=== PATIENT | female | born 1985 | race Hispanic/Latino ===

== ENCOUNTER 2017-06-14 22:32 | Emergency (ER) | payer OTHER ==
[2017-06-14 22:33] VITALS: BMI 41.3
[2017-06-14 22:51] VITALS: TEMP 98.2
[2017-06-15 00:39] LABS: BASO # 0.05 K/mm3 (0.0-2.0); BASO % 0.5 % (0.0-3.0); EOS # 0.4 (0.0-0.7); EOS % 4.4 % (1.5-5.0); GRAN # 6.65 (1.4-6.5); GRAN % 70.1 % (50.0-68.0); HEMATOCRIT 38.7 % (36.0-48.0); LYMPH # 1.6 (1.2-3.4); MEAN CELL VOLUME 85.6 fl (80.0-105.0); MEAN CORPUSCULAR HEMOGLOBIN 27.9 pg (25.0-35.0); MEAN CORPUSCULAR HGB CONC 32.6 g/dl (31.0-37.0); MEAN PLATELET VOLUME 9.2 fl (7.0-11.0); MONO # 0.8 (0.1-0.6); RED CELL DISTRIBUTION WIDTH 14.3 % (11.5-14.5); WHITE BLOOD COUNT 9.5 10^3/ul (4.5-11.0)
[2017-06-15 00:45] LABS: ALB/GLOB RATIO 1.3 (1.1-1.8); ALKALINE PHOSPHATASE 82 U/L (38-126); ALT/SGPT 53 U/L (7-56); AST/SGOT 41 U/L (14-36); BILIRUBIN,TOTAL 0.4 mg/dL (0.2-1.3); BLOOD UREA NITROGEN 14 mg/dL (7-21); CALCIUM 9.2 mg/dL (8.4-10.5); CARBON DIOXIDE 27 mmol/L (21-33); CHLORIDE 102 mmol/L (98-107); GFR AFRICAN-AMERICAN > 60; GLUCOSE,RANDOM 212 mg/dL (70-110); LIPASE 74 U/L (23-300); POTASSIUM 4.1 mmol/L (3.6-5.0); SODIUM 139 mmol/L (132-148); TOTAL PROTEIN 6.7 g/dL (5.8-8.3)
[2017-06-15 00:45] LABS: URINE BILIRUBIN NEGATIVE (NEGATIVE); URINE BLOOD LARGE (NEGATIVE); URINE GLUCOSE (UA) 100 mg/dL (NEGATIVE); URINE KETONE TRACE mg/dL (NEGATIVE); URINE LEUKOCYTE ESTERASE NEGATIVE Leu/uL (NEGATIVE); URINE PROTEIN NEGATIVE mg/dL (<30 mg/dL); URINE UROBILINOGEN 0.2 E.U./dL (<1 E.U./dL)
[2017-06-15] MEDS ORDERED: Morphine 4 mg/ml ISec IVP STA (00:53)
[2017-06-15 00:57] LABS: TROPONIN I < 0.01 ng/mL
[2017-06-15 01:01] LABS: URINE APPEARANCE SL CLOUDY (CLEAR); URINE COLOR YELLOW (YELLOW)
[2017-06-15] MEDS ORDERED: Sodium Chloride 0.9% 1,000 ML IV STA (01:04)
[2017-06-15 01:09] LABS: URINE BACTERIA RARE (NEG); URINE RBC 25 - 30 /hpf (0-2); URINE WBC 0 - 2 /hpf (0-6)
--- NOTE | 2017-06-15 01:23 | ED PDOC ---
Arrival/HPI - General Historian: Patient - General Chief Complaint: Back Pain Time Seen by Provider: 06/14/17 23:15 - History of Present Illness Narrative History of Present Illness (Text): 06/15/17 01:19 32yr old female with IDDM, HTN presents today with worsening SOB, Chest pain and sudden onset of left sided flank pain radiating to the abdomen and chest. pt states she is always feeling SOB, but it seems to be worsening. c/o anterior chest pain. pt c/o nausea no vomiting. pt states she was sitting at home tonight and suddenly developed left sided back pain that made her SOb worse. pt states the pain is intermittent and worse with certain positions. pt denies heavy lifting. denies trauma or injury. pt denies urinary symptoms. pt denies dizziness or weakness. (Maria Del Carmen Anguiano) Past Medical History - Provider Review Nursing Documentation Reviewed: Yes - Travel History Have you recently traveled outside [place] w/in the past 3 mons?: No - Infectious Disease Hx of Infectious Diseases: None - Tetanus Immunization Tetanus Immunization: Unknown - Reproductive Menopause: No - Cardiac Hx Cardiac Disorders: Yes Hx Hypertension: Yes - Pulmonary Hx Respiratory Disorders: Yes Hx Asthma: Yes Hx Chronic Obstructive Pulmonary Disease (COPD): Yes Other/Comment: chronic non-productive congh, sarcoidosis. + smoker - Neurological Hx Neurological Disorder: Yes Hx Migraine: Yes - HEENT Hx HEENT Disorder: No - Renal Hx Renal Disorder: No - Endocrine/Metabolic Hx Endocrine Disorders: Yes Hx Diabetes Mellitus Type 2: Yes - Hematological/Oncological Hx Blood Transfusions: No Hx Blood Transfusion Reaction: No - Integumentary Hx Dermatological Disorder: No - Musculoskeletal/Rheumatological Hx Musculoskeletal Disorders: No Hx Falls: No - Gastrointestinal Hx Gastrointestinal Disorders: No Hx Pancreatitis: Yes - Genitourinary/Gynecological Hx Genitourinary Disorders: No - Psychiatric Hx Psychophysiologic Disorder: Yes Hx Anxiety: Yes Hx Depression: Yes Hx Emotional Abuse: No Hx Panic Disorder: Yes Hx Physical Abuse: No Hx Substance Use: No - Surgical History Hx Cholecystectomy: Yes - Anesthesia Hx Anesthesia: Yes Hx Anesthesia Reactions: Yes (BURNING SENSATION IN ARM) Hx Malignant Hyperthermia: No - Suicidal Assessment Feels Threatened In Home Enviroment: No Family/Social History - Physician Review Nursing Documentation Reviewed: Yes Family/Social History: Unknown Family HX Smoking Status: Former Smoker Hx Alcohol Use: Yes Hx Substance Use: No Substance used: CANNABIS Hx Substance Use Treatment: No Allergies/Home Meds Allergies/Adverse Reactions: Allergies lisinopril Allergy (Verified 06/16/17 13:51) RASH hydromorphone Adverse Reaction (Verified 07/02/16 12:23) NAUSEA Home Medications: Home Meds Medication Instructions Recorded Confirmed Albuterol Sulfate [Albuterol 3 ml IH PRN PRN 12/09/14 06/14/17 Sulfate 3 ml] metFORMIN [glucOPHAGE] 1,000 mg PO BID 07/02/16 06/14/17 ALPRAZolam [Xanax] 1 mg PO HS 06/14/17 06/14/17 Amitriptyline [Elavil] 25 mg PO DAILY 06/14/17 06/14/17 Amoxicillin 125 mg PO DAILY 06/14/17 06/14/17 Benzonatate 200 mg PO DAILY 06/14/17 06/14/17 Clonazepam [Klonopin] 1 mg PO DAILY 06/14/17 06/14/17 Clonazepam [Klonopin] 2 mg PO DAILY 06/14/17 06/14/17 Codeine Phosphate/Guaifenesin 10 ml PO PRN PRN 06/14/17 06/14/17 [Guaifen-Codeine 200-20 mg/10Ml] DULoxetine [Cymbalta] 120 mg PO DAILY 06/14/17 06/14/17 Dulaglutide [Trulicity] 0.75 mg SC DAILY 06/14/17 06/14/17 Fluconazole 150 mg PO DAILY 06/14/17 06/14/17 Insulin Glargine, Recombina 25 unit SC BID 06/14/17 06/14/17 [Lantus] Insulin Lispro [Humalog (Insulin 0 unit SQ DAILY 06/14/17 06/14/17 Lispro)] Lidocaine 5% [Lidoderm] 1 TP DAILY 06/14/17 Losartan/Hydrochlorothiazide 1 tab PO DAILY 06/14/17 06/14/17 [Losartan Potassium-Hydrochlorothiazide 12.5 M] Meloxicam [Mobic] 15 mg PO DAILY 06/14/17 06/14/17 Metoprolol Tartrate [Lopressor] 50 mg PO DAILY 06/14/17 06/14/17 Montelukast [Singulair] 10 mg PO DAILY 06/14/17 06/14/17 Pantoprazole [Protonix] 40 mg PO DAILY 06/14/17 06/14/17 Prednisone 10 mg PO DAILY 06/14/17 06/14/17 Sumatriptan Succinate [Imitrex] 50 mg PO DAILY 06/14/17 06/14/17 oxyCODONE [oxycodone Hydrochloride] 20 mg PO PRN PRN 06/14/17 06/14/17 Review of Systems - Review of Systems Constitutional: absent: Fatigue, Fevers Respiratory: SOB. absent: Cough Cardiovascular: Chest Pain, Palpitations Gastrointestinal: Abdominal Pain, Constipation, Nausea. absent: Diarrhea, Vomiting Genitourinary Female: absent: Dysuria, Frequency, Hematuria, Vaginal Bleeding, Vaginal Discharge Musculoskeletal: Back Pain Skin: absent: Rash, Pruritis Neurological: absent: Headache, Dizziness Psychiatric: Anxiety. absent: Depression, Suicidal Ideation Physical Exam Vital Signs Reviewed: Yes Temperature: Afebrile Blood Pressure: Hypertensive Pulse: Tachycardic Respiratory Rate: Normal Appearance: Positive for: Well-Appearing, Non-Toxic, Uncomfortable Pain Distress: Mild Mental Status: Positive for: Alert and Oriented X 3 Finger Stick Blood Glucose: 208 - Systems Exam Head: Present: Atraumatic Mouth: Present: Moist Mucous Membranes Neck: Present: Normal Range of Motion Respiratory/Chest: Present: Clear to Auscultation, Good Air Exchange. No: Respiratory Distress, Accessory Muscle Use, Tender to Palpation Cardiovascular: Present: Regular Rate and Rhythm, Normal S1, S2. No: Murmurs Abdomen: Present: Tenderness (+ LUQ and LLQ tenderness), Normal Bowel Sounds. No: Distention, Peritoneal Signs Back: Present: Normal Inspection, Other (+ left flank tenderness. ). No: CVA Tenderness, Midline Tenderness, Paraspinal Tenderness Upper Extremity: Present: Normal ROM Lower Extremity: Present: Normal ROM. No: CALF TENDERNESS Neurological: Present: GCS=15, Speech Normal Skin: Present: Warm, Dry, Normal Color. No: Rashes Psychiatric: Present: Alert, Oriented x 3 Vital Signs Temp Pulse Resp BP Pulse Ox 06/15/17 05:55 85 20 97 06/15/17 01:12 111 H 16 109/74 96 06/14/17 22:46 98.2 F 120 H 20 131/105 H 98 Medical Decision Making ED Course and Treatment: Case signed out to me, pending CT, reevaluation and final disposition. Initial CT negative, but after speaking with radiologist, there is concern for a 5 mm stone. Patient is refusing further observation in the emergency department and is requesting to be discharged home. Addendum created by Naye De Los Santos MD on 06/15/2017 5:37 AM Eastern Time ([place] & [place]) Although examination was ordered with intravenous contrast, on series 2, image 311 is a filling defect within the proximal ureter of increased attenuation measuring 5 mm, with mild left-sided hydronephrosis, extending to this filling defect. These findings taken together may represent a left-sided ureteral calculus. THIS ADDENDUM CONTAINS FINDINGS THAT MAY BE CRITICAL TO PATIENT CARE. The findings were discussed via telephone conference with Dr. Levine at 5:36 AM EDT on 06/15/2017. Initial Report created on 06/15/2017 3:16 AM Eastern Time ([place] & [place]) CT Angiography Chest Without and With Intravenous Contrast FINDINGS: Pulmonary arteries: No pulmonary embolism. Aorta: No thoracic aortic aneurysm. No dissection. Lungs: No mass. No consolidation. Diffuse groundglass opacification and interstitial thickening. Pleural spaces: No significant effusion. No pneumothorax. Heart: No cardiomegaly. No significant pericardial effusion. No evidence of right heart dysfunction. Bones: No acute fracture. Lymph nodes: No pathologically enlarged lymph nodes. IMPRESSION: No pulmonary embolism. Findings suggesting mild pulmonary vascular congestion, as detailed above. CT Angiography Abdomen and Pelvis With Intravenous Contrast FINDINGS: VASCULATURE: Aorta: No acute findings. No abdominal aortic aneurysm. No dissection. Celiac trunk and mesenteric arteries: No acute findings. No occlusion or significant stenosis. Renal arteries: No acute findings. No occlusion or significant stenosis. Iliac arteries: No acute findings. No occlusion or significant stenosis. ABDOMEN: Liver: No acute findings. Gallbladder and bile ducts: The gallbladder surgically absent. No significant intra- or extrahepatic biliary ductal dilation. Pancreas: Enhances homogeneously. No ductal dilation. No discrete mass. Spleen: No acute findings. Adrenals: No acute findings. Kidneys and ureters: No acute findings. No hydronephrosis or renal calculi. No discrete solid mass. PELVIS: Bladder: No acute findings. Reproductive: 2 cm focus of decreased attenuation within the right ovary, statistically a cyst. ABDOMEN and PELVIS: Stomach and bowel: No obstruction. No mucosal thickening. Peritoneum: No significant fluid collection. No free air. Lymph nodes: No pathologically enlarged lymph nodes. Vasculature: Unremarkable. Bones: No acute fracture. IMPRESSION: No acute findings in the arterial system of the abdomen and pelvis. Right ovarian (likely) cyst. Dictated and Authenticated by: Naye De Los Santos MD 06/15/2017 3:16 AM Eastern Time ([place]) (Greg Levine) 32yr old female with CP, SOB, left sided back pain and abdominal pain. tachycardic, hypertensive, uncomfortable. cbc; wnl cmp; wnl trop; wnl bnp; wnl cxr; no infiltrate or effusion Ua; + blood morphine given for pain NS iv bolus given ekg; sinus tachycardia at 116b/m no st elevations. normal intervals. CT angio dissection protocol ordered; 06/15/17 02:44 case signed out to dr levine pending ct, re-evaluation and disposition. (Maria Del Carmen Anguiano) - Lab Interpretations Lab Results: 06/15/17 00:15 06/15/17 00:15 Lab Results 06/15/17 04:39: Lactate Dehydrogenase 468, Total Creatine Kinase 50, Troponin I < 0.01 06/15/17 00:34: Urine Color Yellow, Urine Appearance Sl cloudy, Urine pH 6.0, Ur Specific [place] >= 1.030, Urine Protein Negative, Urine Glucose (UA) 100 H, Urine Ketones Trace H, Urine Blood Large H, Urine Nitrate Negative, Urine Bilirubin Negative, Urine Urobilinogen 0.2, Ur Leukocyte Esterase Negative, Urine RBC 25 - 30, Urine WBC 0 - 2, Ur Epithelial Cells 1 - 3, Urine Bacteria Rare 06/15/17 00:15: WBC 9.5 D, RBC 4.52, Hgb 12.6, Hct 38.7, MCV 85.6, MCH 27.9, MCHC 32.6, RDW 14.3, Plt Count 375, MPV 9.2, Gran % 70.1 H, Lymph % (Auto) 17.0 L, [place] % (Auto) 8.0 H, Eos % (Auto) 4.4, Baso % (Auto) 0.5, Gran # 6.65 H, Lymph # 1.6, [place] # 0.8 H, Eos # 0.4, Baso # 0.05 06/15/17 00:15: Sodium 139, Potassium 4.1, Chloride 102, Carbon Dioxide 27, Anion Gap 14, BUN 14, Creatinine 0.9, Est GFR ( Amer) > 60, Est GFR (Non- Af Amer) > 60, Random Glucose 212 H, Calcium 9.2, Total Bilirubin 0.4, AST 41 H , ALT 53, Alkaline Phosphatase 82, Lactate Dehydrogenase 522, Total Creatine Kinase 54, Troponin I < 0.01 D, NT-Pro-B Natriuret Pep 101, Total Protein 6.7, Albumin 3.8, Globulin 2.9, Albumin/Globulin Ratio 1.3, Lipase 74 06/15/17 00:14: POC Glucose (mg/dL) 208 H - RAD Interpretation Radiology Orders: 06/14/17 23:16 CHEST PORTABLE [RAD] Stat 06/14/17 23:18 ANGIOGRAPHY DISECTION PROTOCOL [CT] Stat - Medication Orders Current Medication Orders: Discontinued Medications Sodium Chloride (Sodium Chloride 0.9%) 1,000 mls @ 999 mls/hr IV .Q1H1M STA Stop: 06/15/17 02:04 Last Admin: 06/15/17 01:07 Dose: 999 mls/hr eMAR Start Stop Document 06/15/17 01:07 OCS (Rec: 06/15/17 01:07 [id number] Intravenous Solution Start Date 06/15/17 Start Time 01:07 Morphine Sulfate (Morphine) 4 mg IVP STAT STA Stop: 06/15/17 00:54 Last Admin: 06/15/17 01:12 Dose: 4 mg MAR Pain Assessment Document 06/15/17 01:12 OCS (Rec: 06/15/17 01:12 [id number] Pain Reassessment Is this a pain reassessment? Yes Sleep Is patient sleeping during reassessment? No Presence of Pain Presence of Pain Yes Pain Scale Used Pain Scale Used Numeric Location Left, Right or Bilateral Bilateral Upper or Lower Lower Pain Location Body Site Back Description Description Constant Intensity of Pain at present 10 IVP Administration Document 06/15/17 01:12 OCS (Rec: 06/15/17 01:12 [id number] Charges for Administration # of IVP Administrations 1 Ondansetron HCl (Zofran Inj) 4 mg IVP STAT STA Stop: 06/15/17 01:02 Last Admin: 06/15/17 01:12 Dose: 4 mg IVP Administration Document 06/15/17 01:12 OCS (Rec: 06/15/17 01:12 [facility] [id number]) Charges for Administration # of IVP Administrations 1 Disposition/Present on Arrival - Present on Arrival Any Indicators Present on Arrival: No History of DVT/PE: No History of Uncontrolled Diabetes: No Urinary Catheter: No History of Decub. Ulcer: No History Surgical Site Infection Following: None - Disposition Have Diagnosis and Disposition been Completed?: Yes Disposition Time: 05:55 Patient Plan: Discharge - Disposition Diagnosis: Back pain, Chest pain Disposition: HOME/ ROUTINE Condition: STABLE Discharge Instructions (ExitCare): Chest Pain (ED), Kidney Stones (ED), Acute Low Back Pain (DC), Dyspnea (ED) Additional Instructions: please see specialist. return to er with worsening symptoms or concerns. Prescriptions: Ibuprofen [Motrin Tab] 600 mg PO Q8 PRN #15 tab PRN Reason: Pain, Mild (1-3) Tamsulosin [Flomax] 0.4 mg PO DAILY #10 cap Referrals: [facility] [Outside] - Follow up with primary [facility] [place] [Outside] - Follow up with primary [facility] [Outside] - Follow up with primary Yamileth NUNEZ,Greg Bloom MD [Primary Care Provider] - Follow up with primary Lui Alvarenga MD [Staff Provider] - Follow up with primary Hal Balbuena MD [Staff Provider] - Follow up with primary Forms: [employer] [facility] (French), WORK NOTE
[2017-06-15 01:27] VITALS: BP 109/74
--- NOTE | 2017-06-15 03:17 | CT ---
EXAM: CT Angiography Chest Without and With Intravenous Contrast CLINICAL HISTORY: 32 years old, female; Pain; Abdominal pain; Generalized; Chest pain; Additional info: Abd pain/sob/chest pain R/O disection/pe TECHNIQUE: Axial computed tomographic angiography images of the chest without and with intravenous contrast using pulmonary embolism protocol. All CT scans at this facility use one or more dose reduction techniques, viz.: automated exposure control; ma/kV adjustment per patient size (including targeted exams where dose is matched to indication; i.e. head); or iterative reconstruction technique. MIP reconstructed images were created and reviewed. Coronal and sagittal reformatted images were created and reviewed. CONTRAST: 146 mL of omni 350 administered intravenously. COMPARISON: No relevant prior studies available. FINDINGS: Pulmonary arteries: No pulmonary embolism. Aorta: No thoracic aortic aneurysm. No dissection. Lungs: No mass. No consolidation. Diffuse groundglass opacification and interstitial thickening. Pleural spaces: No significant effusion. No pneumothorax. Heart: No cardiomegaly. No significant pericardial effusion. No evidence of right heart dysfunction. Bones: No acute fracture. Lymph nodes: No pathologically enlarged lymph nodes. IMPRESSION: No pulmonary embolism. Findings suggesting mild pulmonary vascular congestion, as detailed above. EXAM: CT Angiography Abdomen and Pelvis With Intravenous Contrast CLINICAL HISTORY: 32 years old, female; Pain; Abdominal pain; Generalized; Chest pain; Additional info: Abd pain/sob/chest pain R/O disection/pe TECHNIQUE: Axial computed tomographic angiography images of the abdomen and pelvis with intravenous contrast. All CT scans at this facility use one or more dose reduction techniques, viz.: automated exposure control; ma/kV adjustment per patient size (including targeted exams where dose is matched to indication; i.e. head); or iterative reconstruction technique. MIP reconstructed images were created and reviewed. Coronal and sagittal reformatted images were created and reviewed. CONTRAST: 146 mL of omni 350 administered intravenously. COMPARISON: None FINDINGS: VASCULATURE: Aorta: No acute findings. No abdominal aortic aneurysm. No dissection. Celiac trunk and mesenteric arteries: No acute findings. No occlusion or significant stenosis. Renal arteries: No acute findings. No occlusion or significant stenosis. Iliac arteries: No acute findings. No occlusion or significant stenosis. ABDOMEN: Liver: No acute findings. Gallbladder and bile ducts: The gallbladder surgically absent. No significant intra- or extrahepatic biliary ductal dilation. Pancreas: Enhances homogeneously. No ductal dilation. No discrete mass. Spleen: No acute findings. Adrenals: No acute findings. Kidneys and ureters: No acute findings. No hydronephrosis or renal calculi. No discrete solid mass. PELVIS: Bladder: No acute findings. Reproductive: 2 cm focus of decreased attenuation within the right ovary, statistically a cyst. ABDOMEN and PELVIS: Stomach and bowel: No obstruction. No mucosal thickening. Peritoneum: No significant fluid collection. No free air. Lymph nodes: No pathologically enlarged lymph nodes. Vasculature: Unremarkable. Bones: No acute fracture. IMPRESSION: No acute findings in the arterial system of the abdomen and pelvis. Right ovarian (likely) cyst.
[2017-06-15 05:11] LABS: TROPONIN I < 0.01 ng/mL
[2017-06-15 05:56] VITALS: PULSE 85; RESP 20; O2SAT 97
--- NOTE | 2017-06-15 08:43 | RAD ---
HISTORY: chest pain COMPARISON: 07/27/2016 FINDINGS: LUNGS: No active pulmonary disease. PLEURA: No significant pleural effusion identified, no pneumothorax apparent. CARDIOVASCULAR: Normal. OSSEOUS STRUCTURES: No significant abnormalities. VISUALIZED UPPER ABDOMEN: Normal. OTHER FINDINGS: None. IMPRESSION: No active disease.
--- NOTE | 2017-06-15 22:05 | CARD ---
APPROVED REPORT EKG Measurement Heart [id number] <Conclusion> Sinus tachycardia Cannot rule out Anterior infarct, age undetermined Abnormal ECG
== END 2017-06-15 05:55 | disposition home or self-care (01) ==
LOC: ED 22:32
DX: M54.9 Dorsalgia, unspecified (principal); R07.9 Chest pain, unspecified; E11.9 Type 2 diabetes mellitus without complications; I10 Essential (primary) hypertension; Z79.4 Long term (current) use of insulin; Z87.891 Personal history of nicotine dependence
CPT/HCPCS: 71010; 71275; 74175; 80053; 81001; 82550; 82948; 83615; 83690; 83880; 84484; 85025; 93005; 96374; 96375; 99283; J2270; J2405; J7040; Q9967

== ENCOUNTER 2017-06-16 13:21 | Emergency (ER) | payer OTHER ==
[2017-06-16 13:21] VITALS: BMI 41.3
[2017-06-16] MEDS ORDERED: Morphine 4 mg/ml ISec IVP STA (13:57)
[2017-06-16 14:27] LABS: BASO # 0.05 K/mm3 (0.0-2.0); BASO % 0.6 % (0.0-3.0); EOS # 0.5 (0.0-0.7); EOS % 5.7 % (1.5-5.0); GRAN # 5.28 (1.4-6.5); HEMATOCRIT 38.1 % (36.0-48.0); LYMPH # 1.7 (1.2-3.4); LYMPH % 20.7 % (22.0-35.0); MEAN CELL VOLUME 83.9 fl (80.0-105.0); MEAN CORPUSCULAR HGB CONC 33.3 g/dl (31.0-37.0); MEAN PLATELET VOLUME 9.3 fl (7.0-11.0); MONO # 0.7 (0.1-0.6); RED CELL DISTRIBUTION WIDTH 14.1 % (11.5-14.5); WHITE BLOOD COUNT 8.3 10^3/ul (4.5-11.0)
[2017-06-16 14:41] LABS: ALB/GLOB RATIO 1.2 (1.1-1.8); ALKALINE PHOSPHATASE 81 U/L (38-126); ALT/SGPT 46 U/L (7-56); AST/SGOT 62 U/L (14-36); BILIRUBIN,TOTAL 0.6 mg/dL (0.2-1.3); BLOOD UREA NITROGEN 13 mg/dL (7-21); CALCIUM 8.9 mg/dL (8.4-10.5); CARBON DIOXIDE 23 mmol/L (21-33); CHLORIDE 105 mmol/L (98-107); GFR AFRICAN-AMERICAN > 60; GLUCOSE,RANDOM 132 mg/dL (70-110); SODIUM 137 mmol/L (132-148); TOTAL PROTEIN 6.8 g/dL (5.8-8.3)
[2017-06-16 14:44] LABS: POTASSIUM 4.5 mmol/L (3.6-5.0)
--- NOTE | 2017-06-16 14:53 | ED PDOC ---
Arrival/HPI - General Chief Complaint: Abdominal Pain Time Seen by Provider: 06/16/17 13:28 Historian: Patient - History of Present Illness Narrative History of Present Illness (Text): 06/16/17 14:50 A 32 year old female, whose past medical history includes COPD, Diabetes Mellitus, hypertension, and anxiety, presents to the emergency department for lower left sided back pain, which began two days ago. The patient states she is in excruciating pain and it worsens with the slightest movement. The patient denies any trauma, fevers, or any other complaints at this time. Time/Duration: < week (x 2 days ) Symptom Onset: Gradual Activities at Onset: Light Context: Home Past Medical History - Provider Review Nursing Documentation Reviewed: Yes - Infectious Disease Hx of Infectious Diseases: None - Tetanus Immunization Tetanus Immunization: Unknown - Cardiac Hx Cardiac Disorders: Yes Hx Hypertension: Yes - Pulmonary Hx Respiratory Disorders: Yes Hx Asthma: Yes Hx Chronic Obstructive Pulmonary Disease (COPD): Yes Other/Comment: chronic non-productive congh, sarcoidosis. + smoker - Neurological Hx Neurological Disorder: Yes Hx Migraine: Yes - HEENT Hx HEENT Disorder: No - Renal Hx Renal Disorder: No - Endocrine/Metabolic Hx Endocrine Disorders: Yes Hx Diabetes Mellitus Type 2: Yes - Hematological/Oncological Hx Blood Transfusions: No Hx Blood Transfusion Reaction: No - Integumentary Hx Dermatological Disorder: No - Musculoskeletal/Rheumatological Hx Musculoskeletal Disorders: No Hx Falls: No - Gastrointestinal Hx Gastrointestinal Disorders: No Hx Pancreatitis: Yes - Genitourinary/Gynecological Hx Genitourinary Disorders: No - Psychiatric Hx Psychophysiologic Disorder: Yes Hx Anxiety: Yes Hx Depression: Yes Hx Emotional Abuse: No Hx Panic Disorder: Yes Hx Physical Abuse: No Hx Substance Use: No - Surgical History Hx Cholecystectomy: Yes - Anesthesia Hx Anesthesia: Yes Hx Anesthesia Reactions: Yes (BURNING SENSATION IN ARM) Hx Malignant Hyperthermia: No - Suicidal Assessment Feels Threatened In Home Enviroment: No Family/Social History - Physician Review Nursing Documentation Reviewed: Yes Family/Social History: Unknown Family HX Smoking Status: Former Smoker Hx Alcohol Use: Yes Hx Substance Use: No Substance used: CANNABIS Hx Substance Use Treatment: No Allergies/Home Meds Allergies/Adverse Reactions: Allergies lisinopril Allergy (Verified 06/16/17 13:51) RASH hydromorphone Adverse Reaction (Verified 07/02/16 12:23) NAUSEA Home Medications: Home Meds Medication Instructions Recorded Confirmed Albuterol Sulfate [Albuterol 3 ml IH PRN PRN 12/09/14 06/14/17 Sulfate 3 ml] metFORMIN [glucOPHAGE] 1,000 mg PO BID 07/02/16 06/14/17 ALPRAZolam [Xanax] 1 mg PO HS 06/14/17 06/14/17 Amitriptyline [Elavil] 25 mg PO DAILY 06/14/17 06/14/17 Amoxicillin 125 mg PO DAILY 06/14/17 06/14/17 Benzonatate 200 mg PO DAILY 06/14/17 06/14/17 Clonazepam [Klonopin] 1 mg PO DAILY 06/14/17 06/14/17 Clonazepam [Klonopin] 2 mg PO DAILY 06/14/17 06/14/17 Codeine Phosphate/Guaifenesin 10 ml PO PRN PRN 06/14/17 06/14/17 [Guaifen-Codeine 200-20 mg/10Ml] DULoxetine [Cymbalta] 120 mg PO DAILY 06/14/17 06/14/17 Dulaglutide [Trulicity] 0.75 mg SC DAILY 06/14/17 06/14/17 Fluconazole 150 mg PO DAILY 06/14/17 06/14/17 Insulin Glargine, Recombina 25 unit SC BID 06/14/17 06/14/17 [Lantus] Insulin Lispro [Humalog (Insulin 0 unit SQ DAILY 06/14/17 06/14/17 Lispro)] Lidocaine 5% [Lidoderm] 1 TP DAILY 06/14/17 Losartan/Hydrochlorothiazide 1 tab PO DAILY 06/14/17 06/14/17 [Losartan Potassium-Hydrochlorothiazide 12.5 M] Meloxicam [Mobic] 15 mg PO DAILY 06/14/17 06/14/17 Metoprolol Tartrate [Lopressor] 50 mg PO DAILY 06/14/17 06/14/17 Montelukast [Singulair] 10 mg PO DAILY 06/14/17 06/14/17 Pantoprazole [Protonix] 40 mg PO DAILY 06/14/17 06/14/17 Prednisone 10 mg PO DAILY 06/14/17 06/14/17 Sumatriptan Succinate [Imitrex] 50 mg PO DAILY 06/14/17 06/14/17 oxyCODONE [oxycodone Hydrochloride] 20 mg PO PRN PRN 06/14/17 06/14/17 Review of Systems - Physician Review All systems were reviewed & negative as marked: Yes - Review of Systems Constitutional: absent: Fevers Musculoskeletal: Back Pain Physical Exam Vital Signs Reviewed: Yes Vital Signs Temp Pulse Resp BP Pulse Ox 06/16/17 17:29 98.6 F 87 20 115/66 06/16/17 16:30 90 20 115/66 98 06/16/17 13:48 99.1 F 110 H 17 136/74 100 Temperature: Afebrile Blood Pressure: Normal Pulse: Tachycardic Respiratory Rate: Normal Appearance: Positive for: Well-Appearing, Non-Toxic, Comfortable Pain Distress: None Mental Status: Positive for: Alert and Oriented X 3 - Systems Exam Head: Present: Atraumatic, Normocephalic Pupils: Present: PERRL Extroacular Muscles: Present: EOMI Conjunctiva: Present: Normal Mouth: Present: Moist Mucous Membranes Neck: Present: Normal Range of Motion Respiratory/Chest: Present: Clear to Auscultation, Good Air Exchange. No: Respiratory Distress, Accessory Muscle Use Cardiovascular: Present: Regular Rate and Rhythm, Normal S1, S2. No: Murmurs Abdomen: Present: Normal Bowel Sounds. No: Tenderness, Distention, Peritoneal Signs Back: Present: Other (diffuse tenderness) Upper Extremity: Present: Normal Inspection. No: Cyanosis, Edema Lower Extremity: Present: Normal Inspection. No: Edema Neurological: Present: GCS=15, CN II-XII Intact, Speech Normal Skin: Present: Warm, Dry, Normal Color. No: Rashes Psychiatric: Present: Alert, Oriented x 3, Normal Insight, Normal Concentration Medical Decision Making ED Course and Treatment: 06/16/17 14:52 Impression: A 32 year old female with lower back pain. Differential Diagnosis included but are not limited to: Back pain r/o MSK vs Kidney Stone Plan: -- Klonopin, Cymbalta, Toradol, Morphine, Zofran -- test -- Urinalysis -- Reassess and disposition Progress Notes: Patient was discharged recently with back with possible kidney stone. I reviewed the CT again with Dr. Bernstein radiologist, who states there are no kidney stones. Patient responded very well to Morphine and Toradol IV. She then back nauseous with some burning epigastric discomfort that was treated with Pepcid and Zofran Patient's UA showed +blood +LE +WBC 5-10 and Mod David. Will treat with Cipro x 7 days and have her follow up with her PMD. Symptoms and exam are most consistent with muscular skeletal. She has good follow up care and her friend is taking her home. - Lab Interpretations Lab Results: 06/16/17 14:23 06/16/17 14:23 Lab Results 06/16/17 17:05: Urine Color Yellow, Urine Appearance Cloudy, Urine pH 6.0, Ur Specific [place] >= 1.030, Urine Protein 100 H, Urine Glucose (UA) Negative, Urine Ketones Negative, Urine Blood Large H, Urine Nitrate Negative, Urine Bilirubin Small H, Urine Urobilinogen 0.2, Ur Leukocyte Esterase Small H, Urine RBC 15 - 20, Urine WBC 5 - 10, Ur Epithelial Cells 10 - 12, Urine Bacteria Mod 06/16/17 14:23: Sodium 137, Potassium 4.5, Chloride 105, Carbon Dioxide 23, Anion Gap 14, BUN 13, Creatinine 0.8, Est GFR ( Amer) > 60, Est GFR (Non- Af Amer) > 60, Random Glucose 132 H, Calcium 8.9, Total Bilirubin 0.6, AST 62 H D, ALT 46, Alkaline Phosphatase 81, Total Protein 6.8, Albumin 3.8, Globulin 3.1 , Albumin/Globulin Ratio 1.2 06/16/17 14:23: WBC 8.3, RBC 4.54, Hgb 12.7, Hct 38.1, MCV 83.9, MCH 28.0, MCHC 33.3, RDW 14.1, Plt Count 377, MPV 9.3, Gran % 64.0, Lymph % (Auto) 20.7 L, Ransom % (Auto) 9.0 H, Eos % (Auto) 5.7 H, Baso % (Auto) 0.6, Gran # 5.28, Lymph # 1.7, Ransom # 0.7 H, Eos # 0.5, Baso # 0.05 I have reviewed the lab results: Yes - Medication Orders Current Medication Orders: Discontinued Medications Ciprofloxacin (Cipro) 500 mg PO ONCE STA PRN Reason: Protocol Stop: 06/16/17 18:03 Last Admin: 06/16/17 18:17 Dose: 500 mg Clonazepam (Klonopin) 1 mg PO STAT STA PRN Reason: Protocol Stop: 06/16/17 14:18 Last Admin: 06/16/17 14:55 Dose: 1 mg Duloxetine HCl (Cymbalta) 60 mg PO STAT STA Stop: 06/16/17 14:20 Last Admin: 06/16/17 14:55 Dose: 60 mg Famotidine (Pepcid) 20 mg PO STAT STA Stop: 06/16/17 18:24 Last Admin: 06/16/17 18:33 Dose: 20 mg Ketorolac Tromethamine (Toradol) 30 mg IVP STAT STA Stop: 06/16/17 13:59 Last Admin: 06/16/17 14:18 Dose: 30 mg MAR Pain Assessment Document 06/16/17 14:18 MB (Rec: 06/16/17 14:18 [id number] Pain Reassessment Is this a pain reassessment? No Sleep Is patient sleeping during reassessment? No Presence of Pain Presence of Pain Yes Pain Scale Used Pain Scale Used Numeric Location Left, Right or Bilateral Left Pain Location Body Site Abdomen Description Description Sharp Intensity of Pain at present 10 Acceptable Level of Pain 0 IVP Administration Document 06/16/17 14:18 MB (Rec: 06/16/17 14:18 [id number] Charges for Administration # of IVP Administrations 1 Morphine Sulfate (Morphine) 4 mg IVP STAT STA Stop: 06/16/17 13:58 Last Admin: 06/16/17 14:16 Dose: 4 mg MAR Pain Assessment Document 06/16/17 14:16 MB (Rec: 06/16/17 14:17 [id number] Pain Reassessment Is this a pain reassessment? No Sleep Is patient sleeping during reassessment? No Presence of Pain Presence of Pain Yes Pain Scale Used Pain Scale Used Numeric Location Left, Right or Bilateral Left Pain Location Body Site Abdomen Description Description Acute Intensity of Pain at present 10 Acceptable Level of Pain 0 Pain Behavior Moaning Crying Grasping Site Rubbing Site Facial Grimacing Aggravating Factors Changing Position Exercise/Activity Standing Sitting Walking Stair Climbing Alleviating Factors/Management Medication Techniques Alleviating Factors Medication IVP Administration Document 06/16/17 14:16 MB (Rec: 06/16/17 14:17 [id number]) Charges for Administration # of IVP Administrations 1 Re-Assess: SHADI Pain Assessment Document 06/16/17 15:16 SZA (Rec: 06/16/17 18:51 [facility] [id number]) Pain Reassessment Is this a pain reassessment? Yes Sleep Is patient sleeping during reassessment? Yes Pain Scale Used Pain Scale Used Numeric Description Description Intermittent Intensity of Pain at present 4 Ondansetron HCl (Zofran Inj) 4 mg IVP STAT STA Stop: 06/16/17 13:59 Last Admin: 06/16/17 14:17 Dose: 4 mg IVP Administration Document 06/16/17 14:17 MB (Rec: 06/16/17 14:17 [id number]) Charges for Administration # of IVP Administrations 1 Ondansetron HCl (Zofran Odt) 4 mg PO STAT STA Stop: 06/16/17 18:03 Last Admin: 06/16/17 18:17 Dose: 4 mg - Scribe Statement The provider has reviewed the documentation as recorded by the Mary Jane Kemp Provider Scribe Attestation: All medical record entries made by the Susanibkieran were at my direction and personally dictated by me. I have reviewed the chart and agree that the record accurately reflects my personal performance of the history, physical exam, medical decision making, and the department course for this patient. I have also personally directed, reviewed, and agree with the discharge instructions and disposition. Disposition/Present on Arrival - Present on Arrival Any Indicators Present on Arrival: No History of DVT/PE: No History of Uncontrolled Diabetes: No Urinary Catheter: No History of Decub. Ulcer: No History Surgical Site Infection Following: None - Disposition Have Diagnosis and Disposition been Completed?: Yes Diagnosis: Back pain, UTI (urinary tract infection) Disposition: HOME/ ROUTINE Disposition Time: 18:35 Patient Plan: Discharge Condition: IMPROVED Discharge Instructions (ExitCare): Acute Low Back Pain (ED) Additional Instructions: Ms. Garay, thank you for letting us take care of you today. Your provider was Dr. De La Torre. You were treated for Back Pain. The emergency medical care you received today was directed at your acute symptoms. If you were prescribed any medication, please fill it and take as directed. It may take several days for your symptoms to resolve. Return to the Emergency Department if your symptoms worsen, do not improve, or if you have any other problems. Please contact your doctor or call one of the physicians/clinics you have been referred to that are listed on the Patient Visit Information form that is included in your discharge packet. Bring any paperwork you were given at discharge with you along with any medications you are taking to your follow up visit. Our treatment cannot replace ongoing medical care by a primary care provider (PCP) outside of the emergency department. Thank you for allowing the [facility] team to be part of your care today. If you had an X-Ray or CT scan: A Radiologist will review the ED reading if any change in treatment is needed we will contact you. If you had a blood, urine, or wound culture: It will take several days for the results, if any change in treatment is needed we will contact you. If you had an STI test: It will take 48 hours for the results. Please call after 1 week if you have not heard back. Prescriptions: Ciprofloxacin [Cipro] 500 mg PO Q12 #14 tab Famotidine [Pepcid] 20 mg PO DAILY #30 tab Fluconazole [Diflucan] 150 mg PO ONCE #1 tab Ondansetron ODT [Zofran ODT] 4 mg PO Q6 #14 odt traMADol [Ultram] 50 mg PO Q6H PRN #20 tab PRN Reason: Pain, Moderate (4-7) Referrals: Yamileth NUNEZ,Greg Bloom MD [Primary Care Provider] - Follow up with primary Forms: [employer] (Gabonese), WORK NOTE
[2017-06-16 16:32] VITALS: BP 115/66; RESP 20; O2SAT 98
[2017-06-16 17:30] VITALS: PULSE 87; TEMP 98.6
[2017-06-16 17:40] LABS: URINE APPEARANCE CLOUDY (CLEAR); URINE BILIRUBIN SMALL (NEGATIVE); URINE BLOOD LARGE (NEGATIVE); URINE COLOR YELLOW (YELLOW); URINE GLUCOSE (UA) NEGATIVE (NEGATIVE); URINE KETONE NEGATIVE (NEGATIVE); URINE LEUKOCYTE ESTERASE SMALL Leu/uL (NEGATIVE); URINE PROTEIN 100 mg/dL (<30 mg/dL); URINE UROBILINOGEN 0.2 E.U./dL (<1 E.U./dL)
[2017-06-16 17:52] LABS: URINE RBC 15 - 20 /hpf (0-2)
[2017-06-16 17:53] LABS: URINE BACTERIA MOD (NEG)
== END 2017-06-16 18:53 | disposition home or self-care (01) ==
LOC: ED 13:21
DX: N39.0 Urinary tract infection, site not specified (principal); M54.5 Low back pain; I10 Essential (primary) hypertension; E11.9 Type 2 diabetes mellitus without complications; Z87.891 Personal history of nicotine dependence
CPT/HCPCS: 80053; 81001; 85025; 96374; 96375; 99285; J1885; J2270; J2405

== ENCOUNTER 2017-10-24 18:55 | Emergency (ER) | payer OTHER ==
[2017-10-24 18:58] VITALS: BMI 45.3
[2017-10-24] MEDS ORDERED: Albuterol-Ipratrop 3 mg / 0.5 (3 ml) UD IH STA (20:13)
[2017-10-24] MEDS ORDERED: Sodium Chloride 0.9% 1,000 ML IV STA (20:13)
[2017-10-24 21:15] LABS: HEMOGLOBIN 12.4 g/dL (12.0-16.0); MEAN CELL VOLUME 85.1 fl (80.0-105.0); MEAN CORPUSCULAR HEMOGLOBIN 27.2 pg (25.0-35.0); MEAN PLATELET VOLUME 9.2 fl (7.0-11.0); RBC 4.56 10^6/uL (3.5-6.1); RED CELL DISTRIBUTION WIDTH 15.1 % (11.5-14.5); WHITE BLOOD COUNT 10.8 10^3/ul (4.5-11.0)
--- NOTE | 2017-10-24 21:18 | ED PDOC ---
Arrival/HPI - General Chief Complaint: Shortness Of Breath Time Seen by Provider: 10/24/17 19:54 Historian: Patient - History of Present Illness Narrative History of Present Illness (Text): 10/24/17 21:17 A 32 year old female, whose past medical history includes sarcoidosis, poly ovarian cystic disease, hypertension, presents to the emergency department complaining of flu like symptoms, intermittent cough and occasional shortness of breath. Patient also complaining of abdominal cramps at times with diarrhea. Patient also with complaint of vaginal bleeding. Patient states she has a psychiatric history and suffers from depression, denies any depression at this time. Patient notes subjective fever, mild sore throat, nasal congestion, ear fullness but denies any chest pain or any other complaints at this time. Symptom Onset: Sudden Symptom Course: Unchanged Activities at Onset: Rest Context: Home Past Medical History - Provider Review Nursing Documentation Reviewed: Yes - Infectious Disease Hx of Infectious Diseases: None - Tetanus Immunization Tetanus Immunization: Unknown - Cardiac Hx Cardiac Disorders: Yes Hx Hypertension: Yes - Pulmonary Hx Respiratory Disorders: Yes Hx Asthma: Yes Hx Chronic Obstructive Pulmonary Disease (COPD): Yes Other/Comment: chronic non-productive congh, sarcoidosis. + smoker - Neurological Hx Neurological Disorder: Yes Hx Migraine: Yes - HEENT Hx HEENT Disorder: No - Renal Hx Renal Disorder: No - Endocrine/Metabolic Hx Endocrine Disorders: Yes Hx Diabetes Mellitus Type 2: Yes - Hematological/Oncological Hx Blood Transfusions: No Hx Blood Transfusion Reaction: No - Integumentary Hx Dermatological Disorder: No - Musculoskeletal/Rheumatological Hx Musculoskeletal Disorders: No Hx Falls: No - Gastrointestinal Hx Gastrointestinal Disorders: No Hx Pancreatitis: Yes - Genitourinary/Gynecological Hx Genitourinary Disorders: No - Psychiatric Hx Psychophysiologic Disorder: Yes Hx Anxiety: Yes Hx Depression: Yes Hx Emotional Abuse: No Hx Panic Disorder: Yes Hx Physical Abuse: No Hx Substance Use: No - Surgical History Hx Cholecystectomy: Yes Other/Comment: multiple R foot sx. back sx - Anesthesia Hx Anesthesia: Yes Hx Anesthesia Reactions: Yes (BURNING SENSATION IN ARM) Hx Malignant Hyperthermia: No - Suicidal Assessment Feels Threatened In Home Enviroment: No Family/Social History - Physician Review Nursing Documentation Reviewed: Yes Family/Social History: No Known Family HX Smoking Status: Former Smoker Hx Alcohol Use: Yes Hx Substance Use: No Substance used: CANNABIS Hx Substance Use Treatment: No Allergies/Home Meds Allergies/Adverse Reactions: Allergies lisinopril Allergy (Verified 06/16/17 13:51) RASH hydromorphone Adverse Reaction (Verified 07/02/16 12:23) NAUSEA Home Medications: Home Meds Medication Instructions Recorded Confirmed Albuterol Sulfate [Albuterol 3 ml IH PRN PRN 12/09/14 06/14/17 Sulfate 3 ml] metFORMIN [glucOPHAGE] 1,000 mg PO BID 07/02/16 06/14/17 ALPRAZolam [Xanax] 1 mg PO HS 06/14/17 06/14/17 Amitriptyline [Elavil] 25 mg PO DAILY 06/14/17 06/14/17 Amoxicillin 125 mg PO DAILY 06/14/17 06/14/17 Benzonatate 200 mg PO DAILY 06/14/17 06/14/17 Clonazepam [Klonopin] 1 mg PO DAILY 06/14/17 06/14/17 Clonazepam [Klonopin] 2 mg PO DAILY 06/14/17 06/14/17 Codeine Phosphate/Guaifenesin 10 ml PO PRN PRN 06/14/17 06/14/17 [Guaifen-Codeine 200-20 mg/10Ml] DULoxetine [Cymbalta] 120 mg PO DAILY 06/14/17 06/14/17 Dulaglutide [Trulicity] 0.75 mg SC DAILY 06/14/17 06/14/17 Fluconazole 150 mg PO DAILY 06/14/17 06/14/17 Insulin Glargine, Recombina 25 unit SC BID 06/14/17 06/14/17 [Lantus] Insulin Lispro [Humalog (Insulin 0 unit SQ DAILY 06/14/17 06/14/17 Lispro)] Lidocaine 5% [Lidoderm] 1 TP DAILY 06/14/17 Losartan/Hydrochlorothiazide 1 tab PO DAILY 06/14/17 06/14/17 [Losartan Potassium-Hydrochlorothiazide 12.5 M] Meloxicam [Mobic] 15 mg PO DAILY 06/14/17 06/14/17 Metoprolol Tartrate [Lopressor] 50 mg PO DAILY 06/14/17 06/14/17 Montelukast [Singulair] 10 mg PO DAILY 06/14/17 06/14/17 Pantoprazole [Protonix] 40 mg PO DAILY 06/14/17 06/14/17 Prednisone 10 mg PO DAILY 06/14/17 06/14/17 Sumatriptan Succinate [Imitrex] 50 mg PO DAILY 06/14/17 06/14/17 oxyCODONE [oxycodone Hydrochloride] 20 mg PO PRN PRN 06/14/17 06/14/17 Review of Systems - Physician Review All systems were reviewed & negative as marked: Yes - Review of Systems ENT: Sore Throat, Sinus Congestion, Other (ear fullness) Respiratory: SOB, Cough Cardiovascular: absent: Chest Pain Gastrointestinal: Diarrhea, Other (abdominal cramps) Genitourinary Female: Vaginal Bleeding Psychiatric: absent: Depression Physical Exam Vital Signs Reviewed: Yes Vital Signs Temp Pulse Resp BP Pulse Ox 10/25/17 01:18 98.3 F 69 19 140/65 95 10/24/17 21:02 18 10/24/17 19:05 97.4 F L 92 H 18 136/92 H 96 Temperature: Afebrile Blood Pressure: Hypertensive Pulse: Regular Respiratory Rate: Normal Appearance: Positive for: Well-Appearing, Non-Toxic, Comfortable Pain Distress: None Mental Status: Positive for: Alert and Oriented X 3 - Systems Exam Head: Present: Atraumatic, Normocephalic Pupils: Present: PERRL Extroacular Muscles: Present: EOMI Conjunctiva: Present: Normal Ears: Present: NORMAL TM Mouth: Present: Moist Mucous Membranes Pharnyx: Present: ERYTHEMA. No: EXUDATE, TONSILS ENLARGED Neck: Present: Normal Range of Motion Respiratory/Chest: Present: Clear to Auscultation, Good Air Exchange. No: Respiratory Distress, Accessory Muscle Use Cardiovascular: Present: Regular Rate and Rhythm, Normal S1, S2. No: Murmurs Abdomen: Present: Normal Bowel Sounds. No: Tenderness, Distention, Peritoneal Signs Back: Present: Normal Inspection Upper Extremity: Present: Normal Inspection. No: Cyanosis, Edema Lower Extremity: Present: Normal Inspection. No: Edema Neurological: Present: GCS=15, CN II-XII Intact, Speech Normal, Motor Func Grossly Intact, Normal Sensory Function Skin: Present: Warm, Dry, Normal Color. No: Rashes Psychiatric: Present: Alert, Oriented x 3, Normal Insight, Normal Concentration Medical Decision Making ED Course and Treatment: 10/24/17 21:15 Impression: A 32 year old female with flu like symptoms, cough, shortness of breath, abdominal cramps, diarrhea, vaginal bleeding, subjective fever, mild sore throat , nasal congestion and ear fullness. Plan: -- EKG -- labs -- Chest xray -- US transvaginal -- Urinalysis -- Duoneb, IV fluids -- Reassess and disposition Prior Visits: Notes and results from previous visits were reviewed. Patient was last seen in the emergency department on 06/16/17 for evaluation of left lower sided back pain. Progress Notes: EXAM:US Pelvis Complete, Transabdominal Dictated and Authenticated by: Cristian Young MD 10/24/2017 11:01 PM IMPRESSION: 1. No acute findings. 10/25/17 00:33 EKG shows NSR at 92 BPM with no acute changes. Interpreted by me . 10/25/17 01:17 CXR Impression: As read by me, no acute processes. - Lab Interpretations Lab Results: 10/24/17 20:55 10/24/17 20:55 Lab Results 10/24/17 23:40: Urine Color Yellow, Urine Appearance Sl cloudy, Urine pH 6.0, Ur Specific [place] 1.025, Urine Protein Negative, Urine Glucose (UA) >=1000, Urine Ketones Negative, Urine Blood Large H, Urine Nitrate Negative, Urine Bilirubin Negative, Urine Urobilinogen 0.2, Ur Leukocyte Esterase Trace H, Urine RBC 15 - 20, Urine WBC 2 - 5, Ur Epithelial Cells 1 - 3, Urine Bacteria Few, Urine HCG, Qual Negative 10/24/17 20:55: PT 10.9, INR 0.96, APTT 31.0 10/24/17 20:55: WBC 10.8 D, RBC 4.56, Hgb 12.4, Hct 38.8, MCV 85.1, MCH 27.2, MCHC 32.0, RDW 15.1 H, Plt Count 364, MPV 9.2 10/24/17 20:55: Sodium 138, Potassium 4.0, Chloride 98, Carbon Dioxide 27, Anion Gap 16, BUN 13, Creatinine 0.7, Est GFR ( Amer) > 60, Est GFR (Non- Af Amer) > 60, Random Glucose 261 H, Calcium 9.6, Total Bilirubin 0.4, AST 23, ALT 26, Alkaline Phosphatase 120, Total Protein 7.5, Albumin 4.0, Globulin 3.5, Albumin/Globulin Ratio 1.1, Lipase 132 10/24/17 20:55: Influenza Typ A,B (EIA) Negative for flu a/b I have reviewed the lab results: Yes - RAD Interpretation Radiology Orders: 10/24/17 20:11 CHEST ONE VIEW [RAD] Stat 10/24/17 21:09 TRANSVAGINAL [US] Stat - EKG Interpretation Interpreted by ED Physician: Yes Type: 12 lead EKG - Medication Orders Current Medication Orders: Discontinued Medications Albuterol/Ipratropium (Duoneb 3 Mg/0.5 Mg (3 Ml) Ud) 3 ml IH ONCE STA Stop: 10/24/17 20:14 Last Admin: 10/24/17 20:48 Dose: 3 ml Sodium Chloride (Sodium Chloride 0.9%) 1,000 mls @ 999 mls/hr IV .Q1H1M STA Stop: 10/24/17 21:13 Last Admin: 10/24/17 20:48 Dose: 999 mls/hr eMAR Start Stop Document 10/24/17 20:48 EQ (Rec: 10/24/17 20:49 EQ [id number]) Intravenous Solution Start Date 10/24/17 Start Time 20:49 - Scribe Statement The provider has reviewed the documentation as recorded by the Mary Jane Mayfiedl Provider Scribe Attestation: All medical record entries made by the Scribe were at my direction and personally dictated by me. I have reviewed the chart and agree that the record accurately reflects my personal performance of the history, physical exam, medical decision making, and the department course for this patient. I have also personally directed, reviewed, and agree with the discharge instructions and disposition. Disposition/Present on Arrival - Present on Arrival Any Indicators Present on Arrival: No History of DVT/PE: No History of Uncontrolled Diabetes: No Urinary Catheter: No History of Decub. Ulcer: No History Surgical Site Infection Following: None - Disposition Have Diagnosis and Disposition been Completed?: Yes Diagnosis: Pharyngitis, URI (upper respiratory infection), Dysfunctional uterine bleeding Disposition: HOME/ ROUTINE Disposition Time: 01:20 Patient Plan: Discharge Condition: GOOD Discharge Instructions (ExitCare): Sore Throat in Adults, Heavy Periods (DC), Absent or Irregular Periods Additional Instructions: Drink plenty of liquids/take meds as prescribed/follow up with your doctor/ psychology instructor this week Prescriptions: Amoxicillin [Amoxil 500 mg Cap] 500 mg PO TID #21 cap Referrals: Yamileth NUNEZ,Greg Bloom MD [Primary Care Provider] - Follow up with primary Forms: [employer] (Rwandan)
[2017-10-24 21:20] LABS: INR 0.96 (0.93-1.08); PROTHROMBIN TIME 10.9 SECONDS (9.4-12.5)
[2017-10-24 21:28] LABS: ALB/GLOB RATIO 1.1 (1.1-1.8); ALT/SGPT 26 U/L (7-56); AST/SGOT 23 U/L (14-36); BLOOD UREA NITROGEN 13 mg/dL (7-21); CALCIUM 9.6 mg/dL (8.4-10.5); GFR AFRICAN-AMERICAN > 60; GFR NON-AFRICAN AMERICAN > 60; LIPASE 132 U/L (23-300)
--- NOTE | 2017-10-24 23:02 | US ---
EXAM: US Pelvis Complete, Transabdominal CLINICAL HISTORY: 32 years old, female; Signs and symptoms; Menstruation abnormalities; Irregular menstruation; Additional info: Vaginal bleed TECHNIQUE: Real-time transabdominal pelvic ultrasound (complete) with image documentation. COMPARISON: No relevant prior studies available. FINDINGS: Uterus/cervix: Uterus measures 8.5 x 2.5 x 4.7 cm in size. No myometrial mass. Endometrium: 0.6 cm in thickness. Right ovary: 2.5 x 1.8 x 2.3 cm in size. No mass. Normal flow. Left ovary: 2.8 x 2.0 x 2.2 cm in size. No mass. Normal flow. Free fluid: No significant free fluid. Bladder: Unremarkable as visualized. IMPRESSION: 1.No acute findings. EXAM: US Pelvis, Transvaginal CLINICAL HISTORY: 32 years old, female; Signs and symptoms; Menstruation abnormalities; Irregular menstruation; Additional info: Vaginal bleed TECHNIQUE: Real-time transvaginal pelvic ultrasound (complete) with image documentation. Transvaginal imaging was used for better evaluation of the endometrium and adnexa. COMPARISON: No relevant prior studies available. FINDINGS: Uterus/cervix: Uterus measures 8.5 x 2.5 x 4.7 cm in size. No myometrial mass. Endometrium: 0.6 cm in thickness. Right ovary: 2.5 x 1.8 x 2.3 cm in size. No mass. Normal flow. Left ovary: 2.8 x 2.0 x 2.2 cm in size. No mass. Normal flow. Free fluid: No significant free fluid. Bladder: Empty bladder which cannot be evaluated with this probe. IMPRESSION: 1.No acute findings.
[2017-10-25 00:08] LABS: URINE BILIRUBIN NEGATIVE (NEGATIVE); URINE BLOOD LARGE (NEGATIVE); URINE GLUCOSE (UA) >=1000 mg/dL (NEGATIVE); URINE LEUKOCYTE ESTERASE TRACE Leu/uL (NEGATIVE); URINE NITRATE NEGATIVE (NEGATIVE); URINE PROTEIN NEGATIVE mg/dL (<30 mg/dL); URINE UROBILINOGEN 0.2 E.U./dL (<1 E.U./dL)
[2017-10-25 00:09] LABS: URINE COLOR YELLOW (YELLOW)
[2017-10-25 00:10] LABS: URINE APPEARANCE SL CLOUDY (CLEAR)
[2017-10-25 00:13] LABS: HCG,QUALITATIVE URINE NEGATIVE (NEGATIVE)
[2017-10-25 00:18] LABS: URINE RBC 15 - 20 /hpf (0-2)
[2017-10-25 00:19] LABS: URINE BACTERIA FEW (NEG)
[2017-10-25 01:19] VITALS: BP 140/65; PULSE 69; TEMP 98.3
[2017-10-25 01:42] VITALS: RESP 18; O2SAT 99
--- NOTE | 2017-10-25 08:58 | RAD ---
PROCEDURE: CHEST RADIOGRAPH, 1 VIEW HISTORY: cough COMPARISON: 06/15/2017 FINDINGS: LUNGS: Clear. PLEURA: No pneumothorax or pleural fluid seen. CARDIOVASCULAR: Normal. OSSEOUS STRUCTURES: No significant abnormalities. VISUALIZED UPPER ABDOMEN: Normal. OTHER FINDINGS: None. IMPRESSION: No active disease.
--- NOTE | 2017-10-25 12:33 | CARD ---
APPROVED REPORT EKG Measurement Heart [id number] [id number] <Conclusion> Normal sinus rhythm Normal ECG
== END 2017-10-25 01:42 | disposition home or self-care (01) ==
LOC: ED 18:55
DX: J02.9 Acute pharyngitis, unspecified (principal); N93.8 Other specified abnormal uterine and vaginal bleeding; I10 Essential (primary) hypertension; Z87.891 Personal history of nicotine dependence
CPT/HCPCS: 71045; 76830; 80053; 81001; 83690; 84703; 85027; 85610; 85730; 87086; 87804; 93005; 99284; J7040

== ENCOUNTER 2017-12-08 10:36 | Inpatient (IN) | payer OTHER ==
[2017-12-08 10:48] VITALS: BMI 47.3
[2017-12-08] MEDS ORDERED: Sodium Chloride 0.9% 1,000 ML IV STA (11:33)
[2017-12-08 12:13] LABS: VENOUS BLOOD GAS BASE EXCESS -1.3 mmol/L (0.0-2.0); VENOUS BLOOD GAS PO2 28 mm/Hg (30-55); VENOUS BLOOD PH 7.34 (7.32-7.43)
[2017-12-08 12:19] LABS: BASO # 0.01 K/mm3 (0.0-2.0); BASO % 0.1 % (0.0-3.0); EOS # 0.2 (0.0-0.7); EOS % 2.9 % (1.5-5.0); GRAN # 5.52 (1.4-6.5); GRAN % 72.8 % (50.0-68.0); HEMOGLOBIN 14.2 g/dL (12.0-16.0); LYMPH # 1.3 (1.2-3.4); LYMPH % 16.7 % (22.0-35.0); MEAN CELL VOLUME 83.9 fl (80.0-105.0); MEAN CORPUSCULAR HEMOGLOBIN 27.6 pg (25.0-35.0); MEAN CORPUSCULAR HGB CONC 32.9 g/dl (31.0-37.0); MONO # 0.6 (0.1-0.6); MONO % 7.5 % (1.0-6.0); RBC 5.15 10^6/uL (3.5-6.1); WHITE BLOOD COUNT 7.6 10^3/ul (4.5-11.0)
[2017-12-08 12:20] LABS: URINE BILIRUBIN SMALL (NEGATIVE); URINE BLOOD TRACE-INTACT (NEGATIVE); URINE GLUCOSE (UA) NEGATIVE (NEGATIVE); URINE LEUKOCYTE ESTERASE MODERATE Leu/uL (NEGATIVE); URINE PROTEIN 30 mg/dL (<30 mg/dL); URINE UROBILINOGEN 0.2 E.U./dL (<1 E.U./dL)
[2017-12-08 12:24] LABS: HCG,QUALITATIVE URINE NEGATIVE (NEGATIVE); URINE APPEARANCE CLOUDY (CLEAR); URINE COLOR YELLOW (YELLOW)
[2017-12-08 12:26] LABS: ALB/GLOB RATIO 1.1 (1.1-1.8); ALBUMIN 3.9 g/dL (3.0-4.8); ALT/SGPT 53 U/L (7-56); AMYLASE 45 U/L (35-125); AST/SGOT 42 U/L (14-36); BLOOD UREA NITROGEN 10 mg/dL (7-21); CALCIUM 9.6 mg/dL (8.4-10.5); GFR AFRICAN-AMERICAN > 60; GFR NON-AFRICAN AMERICAN > 60; LIPASE 76 U/L (23-300)
--- NOTE | 2017-12-08 12:28 | RAD ---
HISTORY: sob COMPARISON: 10/24/2017 FINDINGS: LUNGS: No active pulmonary disease. PLEURA: No significant pleural effusion identified, no pneumothorax apparent. CARDIOVASCULAR: Normal. OSSEOUS STRUCTURES: No significant abnormalities. VISUALIZED UPPER ABDOMEN: Normal. OTHER FINDINGS: None. IMPRESSION: No active disease.
--- NOTE | 2017-12-08 12:29 | ED PDOC ---
Arrival/HPI - General Chief Complaint: Abdominal Pain Time Seen by Provider: 12/08/17 11:13 Historian: Patient - History of Present Illness Narrative History of Present Illness (Text): 12/08/17 12:27 Patient is a 32 yo female past medical history of diabetes and pancreatitis, presents to the Emergency Department complaining of 3 day history of intermittent nausea and vomiting with diarrhea. She also reports left sided back pain over the past three days. Reports fevers intermittently at home. She reports upper abdominal pain. Denies bloody stool. Denies dysuria. She does report feeling very thirsty and also having frequency of urination. Denies chest pain or cough or acute shortness of breath. Time/Duration: < week Symptom Onset: Gradual Past Medical History - Infectious Disease Hx of Infectious Diseases: None - Tetanus Immunization Tetanus Immunization: Unknown - Cardiac Hx Cardiac Disorders: Yes Hx Hypertension: Yes - Pulmonary Hx Respiratory Disorders: Yes Hx Asthma: Yes Hx Chronic Obstructive Pulmonary Disease (COPD): Yes Other/Comment: chronic non-productive congh, sarcoidosis. + smoker - Neurological Hx Neurological Disorder: Yes Hx Migraine: Yes - HEENT Hx HEENT Disorder: No - Renal Hx Renal Disorder: No - Endocrine/Metabolic Hx Endocrine Disorders: Yes Hx Diabetes Mellitus Type 2: Yes - Hematological/Oncological Hx Blood Transfusions: No Hx Blood Transfusion Reaction: No - Integumentary Hx Dermatological Disorder: No - Musculoskeletal/Rheumatological Hx Musculoskeletal Disorders: No Hx Falls: No - Gastrointestinal Hx Gastrointestinal Disorders: No Hx Pancreatitis: Yes - Genitourinary/Gynecological Hx Genitourinary Disorders: No - Psychiatric Hx Psychophysiologic Disorder: Yes Hx Anxiety: Yes Hx Depression: Yes Hx Emotional Abuse: No Hx Panic Disorder: Yes Hx Physical Abuse: No Hx Substance Use: No - Surgical History Hx Cholecystectomy: Yes Other/Comment: multiple R foot sx. back sx - Anesthesia Hx Anesthesia: Yes Hx Anesthesia Reactions: Yes (BURNING SENSATION IN ARM) Hx Malignant Hyperthermia: No - Suicidal Assessment Feels Threatened In Home Enviroment: No Family/Social History Family/Social History: Unknown Family HX Smoking Status: Former Smoker Hx Alcohol Use: Yes Hx Substance Use: No Substance used: CANNABIS Hx Substance Use Treatment: No Allergies/Home Meds Allergies/Adverse Reactions: Allergies lisinopril Allergy (Verified 12/08/17 10:49) RASH hydromorphone Adverse Reaction (Verified 12/08/17 10:49) NAUSEA Home Medications: Home Meds Medication Instructions Recorded Confirmed metFORMIN [glucOPHAGE] 1,000 mg PO DAILY 07/02/16 12/08/17 ALPRAZolam [Xanax] 1 mg PO HS 06/14/17 12/08/17 Benzonatate 200 mg PO DAILY 06/14/17 12/08/17 DULoxetine [Cymbalta] 60 mg PO DAILY 06/14/17 12/08/17 Insulin Glargine, Recombina 25 unit SC BID 06/14/17 12/08/17 [Lantus] Lidocaine 5% [Lidoderm] 1 applic TP DAILY 06/14/17 12/08/17 Losartan/Hydrochlorothiazide 1 tab PO DAILY 06/14/17 12/08/17 [Losartan Potassium-Hydrochlorothiazide 12.5 M] Meloxicam [Mobic] 15 mg PO DAILY 06/14/17 12/08/17 Metoprolol Tartrate [Lopressor] 50 mg PO DAILY 06/14/17 12/08/17 Montelukast [Singulair] 10 mg PO DAILY 06/14/17 12/08/17 Pantoprazole [Protonix] 40 mg PO DAILY 06/14/17 12/08/17 Prednisone 10 mg PO DAILY 06/14/17 12/08/17 Sumatriptan Succinate [Imitrex] 50 mg PO DAILY 06/14/17 12/08/17 oxyCODONE [oxycodone Hydrochloride] 20 mg PO PRN PRN 06/14/17 12/08/17 Albuterol HFA [Ventolin HFA 90 0.09 mg IH DAILY 12/08/17 12/08/17 mcg/actuation (8 g)] Budesonide/Formoterol Fumarate 0 gm IH DAILY 12/08/17 12/08/17 [Symbicort 160-4.5 Mcg Inhaler] Dulaglutide [Trulicity] 1.5 mg SC DAILY 12/08/17 12/08/17 Fluticasone Nasal [Flonase] 1 spr NS DAILY 12/08/17 12/08/17 Halcinonide 0.1% [Halog] 0.05 gm TP DAILY 12/08/17 12/08/17 Ibuprofen/Famotidine [Duexis 26.6 1 tab PO DAILY 12/08/17 12/08/17 mg-800 mg] Insulin Aspart, Recombinant 0 unit SC DAILY 12/08/17 12/08/17 [Novolog] Levocetirizine Dihydrochloride 5 mg PO DAILY 12/08/17 12/08/17 [Xyzal] Metformin ER [Glucophage XR] 850 mg PO DAILY 12/08/17 12/08/17 Ondansetron ODT [Zofran ODT] 4 mg PO PRN PRN 12/08/17 12/08/17 Pregabalin [Lyrica] 50 mg PO DAILY 12/08/17 12/08/17 cycloSPORINE [Restasis] 1 ea OP DAILY 12/08/17 12/08/17 Review of Systems - Review of Systems Constitutional: Fatigue, Fevers Respiratory: absent: SOB, Cough Cardiovascular: absent: Chest Pain, LEON Gastrointestinal: Abdominal Pain, Diarrhea, Nausea, Vomiting Genitourinary Female: Frequency. absent: Dysuria, Hematuria, Vaginal Bleeding Musculoskeletal: Neck Pain. absent: Back Pain Neurological: absent: Headache, Dizziness Endocrine: Polyuria, Polydipsia Hemo/Lymphatic: absent: Easy Bleeding Physical Exam Vital Signs Reviewed: Yes Vital Signs Temp Pulse Resp BP Pulse Ox 12/08/17 16:00 99.8 F H 114 H 20 147/97 H 98 12/08/17 13:46 112 H 18 137/106 H 95 12/08/17 10:53 98.1 F 106 H 22 137/104 H 98 12/08/17 10:50 98.1 F 106 H 18 137/104 H 95 Temperature: Afebrile Pulse: Tachycardic Appearance: Positive for: Non-Toxic, Uncomfortable Pain Distress: Mild Mental Status: Positive for: Alert and Oriented X 3 - Systems Exam Head: Present: Atraumatic Pupils: Present: PERRL Mouth: Present: Dry Pharnyx: No: ERYTHEMA, Strider Nose (Internal): Present: Normal Inspection Neck: Present: Normal Range of Motion. No: Meningeal Signs Respiratory/Chest: Present: Clear to Auscultation Cardiovascular: Present: Murmurs, Tachycardic Abdomen: Present: Tenderness. No: Distention, Peritoneal Signs Rectal: No: Gross Blood Back: Present: CVA Tenderness Upper Extremity: Present: Normal ROM, NORMAL PULSES. No: Cyanosis, Edema Lower Extremity: Present: Neurovascularly Intact. No: CALF TENDERNESS, NORMAL PULSES Neurological: Present: Motor Func Grossly Intact, Normal Sensory Function Skin: Present: Warm Psychiatric: Present: Alert, Normal Insight, Normal Concentration Medical Decision Making ED Course and Treatment: 12/08/17 12:31 Patient is 32 yo female presents with abdominal pain, nausea/vomiting. Of note she is tachycardic but denies calf pain, denies pleuritic chest pain, denies sob. Patient also noted to have diffuse upper abdominal pain on exam with left sided cva tenderness. Of noted, patient was recently treated in September for UTI. IV fluids administerd as well as iv pain medication. Labs and UA pending. Plan to hydrate, monitor heart rhythm, obtain CT abdomen/ pelvis given acute abdominal pain. Ddx. uti, pyelonephritis, dehydration, sepsis, DKA, colitis 12/08/2017 12:27 Chest X-ray IMPRESSION: No active disease. Dictator: Stewart Bernstein MD 12/08/17 14:27 Code Sepsis called based on elevated lactate, suspicion of infection with UTI noted. CT abdomen/pelvis reviewed. CT chest obtained due to elevated ddimer associated with back pain, tachycardia. NO pulmonary embolism noted. Given persistent flank pain associated with uti, will admit for possible pyelnephritis, r/o urosepsis. IV antibiotics initiated. Case d/w Dr. Selvin wolfe. - Lab Interpretations Lab Results: 12/08/17 12:08 12/08/17 12:08 Lab Results 12/08/17 12:08: Phosphorus 2.8, Magnesium 1.7 12/08/17 12:08: PT 12.0, INR 1.04, APTT 29.1, D-Dimer, Quantitative 394 H 12/08/17 12:08: WBC 7.6 D, RBC 5.15, Hgb 14.2, Hct 43.2, MCV 83.9, MCH 27.6, MCHC 32.9, RDW 14.0, Plt Count 315, MPV 9.0, Gran % 72.8 H, Lymph % (Auto) 16.7 L, [place] % (Auto) 7.5 H, Eos % (Auto) 2.9, Baso % (Auto) 0.1, Gran # 5.52, Lymph # (Auto) 1.3, [place] # (Auto) 0.6, Eos # (Auto) 0.2, Baso # (Auto) 0.01 12/08/17 12:08: Alcohol, Quantitative < 10 12/08/17 12:08: Sodium 138, Chloride 100, Potassium 3.8, Carbon Dioxide 25, Anion Gap 16, BUN 10, Creatinine 0.8, Est GFR ( Amer) > 60, Est GFR (Non- Af Amer) > 60, Random Glucose 262 H, Calcium 9.6, Magnesium 1.7, Total Bilirubin 0.5, AST 42 H D, ALT 53, Alkaline Phosphatase 130 H, Lactate Dehydrogenase 486, Total Creatine Kinase 34 L, Troponin I < 0.01, Total Protein 7.7, Albumin 3.9, Globulin 3.7, Albumin/Globulin Ratio 1.1, Amylase 45, Lipase 76 12/08/17 12:08: pO2 28 L, VBG pH 7.34, VBG pCO2 46.0, VBG HCO3 24.8, VBG Total CO2 26.2, VBG O2 Sat (Calc) 72.0 H, VBG Base Excess -1.3 L, VBG Potassium 3.8, Sodium 136.0, Chloride 102.0, Glucose 282 H, Lactate 2.2 H, FiO2 21.0, Venous Blood Potassium 3.8 12/08/17 12:00: Urine Color Yellow, Urine Appearance Cloudy, Urine pH 6.0, Ur Specific [place] 1.025, Urine Protein 30 H, Urine Glucose (UA) Negative, Urine Ketones 15 H, Urine Blood Trace-intact H, Urine Nitrate Negative, Urine Bilirubin Small H, Urine Urobilinogen 0.2, Ur Leukocyte Esterase Moderate H, Urine RBC 2 - 5, Urine WBC 20 - 25, Ur Epithelial Cells 6 - 8, Amorphous Sediment Small, Urine Bacteria Large, Coarse Granular Casts Trace H, Urine Other Uyeast, Urine HCG, Qual Negative 12/08/17 11:32: Influenza Typ A,B (EIA) Negative for flu a/b I have reviewed the lab results: Yes - RAD Interpretation Radiology Orders: 12/08/17 11:32 CHEST PORTABLE [RAD] Stat 12/08/17 13:14 ABD & PELVIS W/O PO OR IV CONT [CT] Stat - EKG Interpretation EKG Interpretation (Text): 12/08/17 12:31 EKG at 11:49 sinus tachycardia rate of 105, no acute st elevations Interpreted by ED Physician: Yes Type: 12 lead EKG - Medication Orders Current Medication Orders: Albuterol/Ipratropium (Duoneb 3 Mg/0.5 Mg (3 Ml) Ud) 3 ml IH [id number] PRN PRN Reason: Shortness of Breath Alprazolam (Xanax) 1 mg PO TID PRN; Protocol PRN Reason: Anxiety Last Admin: 12/08/17 18:07 Dose: 1 mg Re-Assess: Reassess Psych Meds Document 12/08/17 19:07 ANE (Rec: 12/08/17 19:44 ANE [facility] [id number]) Reassess Psych Med Effective Docusate Sodium (Colace) 100 mg PO BID [facility] Last Admin: 12/08/17 17:04 Dose: 100 mg Duloxetine HCl (Cymbalta) 60 mg PO BID [facility] Last Admin: 12/08/17 17:05 Dose: 60 mg Ceftriaxone Sodium (Rocephin 1 Gram Ivpb) 1 gm in 100 mls @ 100 mls/hr IVPB DAILY LONG PRN Reason: Protocol Sodium Chloride (Sodium Chloride 0.9%) 1,000 mls @ 100 mls/hr IV .Q10H [facility] Last Admin: 12/08/17 21:16 Dose: 100 mls/hr eMAR Start Stop Document 12/08/17 21:16 ANE (Rec: 12/08/17 21:17 ANE [facility] [id number]) Intravenous Solution Start Date 12/08/17 Start Time 21:16 Insulin Detemir (Levemir) 35 unit SC QPM [facility] Last Admin: 12/08/17 17:06 Dose: 35 unit Subcutaneous Administrations Document 12/08/17 17:06 BIR (Rec: 12/08/17 17:06 BIR [facility] [id number]) Charges for Administration # of Subcutaneous Administrations 1 Insulin Human Regular (Humulin R Med) 0 units SC ACHS LONG PRN Reason: Protocol Last Admin: 12/08/17 21:44 Dose: Not Given Non-Admin Reason: Blood Sugar Parameter MAR Blood Glucose Document 12/08/17 21:44 ANE (Rec: 12/08/17 21:44 ANE [facility] [id number]) Blood Glucose Finger Stick Blood Glucose (70-120) 190 Losartan Potassium (Cozaar) 50 mg PO DAILY [facility] Metformin HCl (Glucophage) 500 mg PO DAILY [facility] Metoprolol Succinate (Toprol Xl) 50 mg PO DAILY [facility] Montelukast Sodium (Singulair) 10 mg PO DAILY [facility] Ondansetron HCl (Zofran Inj) 4 mg IVP Q6H PRN PRN Reason: Nausea/Vomiting Last Admin: 12/08/17 17:07 Dose: 4 mg IVP Administration Document 12/08/17 17:07 BIR (Rec: 12/08/17 17:07 BIR [facility] [id number]) Charges for Administration # of IVP Administrations 1 Oxycodone HCl (Oxycodone Immediate Release Tab) 20 mg PO Q6H PRN PRN Reason: Pain, severe (8-10) Last Admin: 12/08/17 17:06 Dose: 20 mg MAR Pain Assessment Document 12/08/17 17:06 BIR (Rec: 12/08/17 17:07 [id number]) Pain Reassessment Is this a pain reassessment? No Sleep Is patient sleeping during reassessment? No Presence of Pain Presence of Pain Yes Pantoprazole Sodium (Protonix Ec Tab) 40 mg PO DAILY [facility] Discontinued Medications Diazepam (Valium) 5 mg PO ONCE ONE PRN Reason: Protocol Stop: 12/08/17 20:36 Last Admin: 12/08/17 21:12 Dose: 5 mg Behavioural Document 12/08/17 21:12 ANE (Rec: 12/08/17 21:13 ANE [facility] [id number]) Maintenance Maintenance Dose No Nonmedicinal Nonmedicinal Interventions Therapeutic Communication Behavior Behavior for Medication: Anxiety Re-Assess: Reassess Psych Meds Document 12/08/17 22:12 ANE (Rec: 12/08/17 22:35 ANE [facility] [id number]) Reassess Psych Med Effective Famotidine (Pepcid) 20 mg IVP STAT STA Stop: 12/08/17 11:34 Last Admin: 12/08/17 12:26 Dose: 20 mg IVP Administration Document 12/08/17 12:26 LA (Rec: 12/08/17 12:26 LA [id number]) Charges for Administration # of IVP Administrations 1 Sodium Chloride (Sodium Chloride 0.9%) 1,000 mls @ 1,000 mls/hr IV .Q1H STA Stop: 12/08/17 12:32 Last Admin: 12/08/17 12:26 Dose: 1,000 mls/hr eMAR Start Stop Document 12/08/17 12:26 LA (Rec: 12/08/17 12:27 LA [id number]) Intravenous Solution Start Date 12/08/17 Start Time 12:27 End Date 12/08/17 End time 13:27 Total Infusion Time 60 Ceftriaxone Sodium (Rocephin 1 Gram Ivpb) 1 gm in 100 mls @ 200 mls/hr IVPB ONCE STA PRN Reason: Protocol Stop: 12/08/17 13:32 Last Admin: 12/08/17 13:14 Dose: 200 mls/hr eMAR Start Stop Document 12/08/17 13:14 LA (Rec: 12/08/17 13:14 LA [id number]) Intravenous Solution Start Date 12/08/17 Start Time 13:14 End Date 12/08/17 End time 13:44 Total Infusion Time 30 Lactated Ringer's 4,490 ml/ IV (SUPPLIES) 4,490 mls @ 8,981.1 mls/hr IV ONCE ONE PRN Reason: 60 ML/KG/HR Stop: 12/08/17 14:27 Last Admin: 12/08/17 14:32 Dose: 8,981.1 mls/hr eMAR Start Stop Document 12/08/17 14:32 LA (Rec: 12/08/17 14:33 LA [id number]) Intravenous Solution Start Date 12/08/17 Start Time 14:33 End Date 12/08/17 End time 15:03 Total Infusion Time 30 Metoprolol Tartrate (Lopressor) 5 mg IVP ONCE ONE Stop: 12/08/17 20:36 Last Admin: 12/08/17 21:13 Dose: 5 mg Comments: medication administered by Jacqueline ROMAN IVP Administration Document 12/08/17 21:13 ANE (Rec: 12/08/17 21:13 ANE [id number]) Charges for Administration # of IVP Administrations 1 MAR Pulse and Blood Pressure Document 12/08/17 21:13 ANE (Rec: 12/08/17 21:13 ANE [id number]) Pulse Pulse Rate (60-90) 150 Blood Pressure Blood Pressure (100/60-150/90) 134/98 Morphine Sulfate (Morphine) 2 mg IVP STAT STA Stop: 12/08/17 11:34 Last Admin: 12/08/17 12:24 Dose: 2 mg MAR Pain Assessment Document 12/08/17 12:24 LA (Rec: 12/08/17 12:25 LA [id number]) Pain Reassessment Is this a pain reassessment? No Sleep Is patient sleeping during reassessment? No Presence of Pain Presence of Pain Yes Pain Scale Used Pain Scale Used Numeric Location Pain Location Body Site Abdomen Description Description Cramping Pain Behavior Guarding IVP Administration Document 12/08/17 12:24 LA (Rec: 12/08/17 12:25 LA [id number]) Charges for Administration # of IVP Administrations 1 Morphine Sulfate (Morphine) 2 mg IVP STAT STA Stop: 12/08/17 13:04 Last Admin: 12/08/17 13:18 Dose: 2 mg MAR Pain Assessment Document 12/08/17 13:18 LA (Rec: 12/08/17 13:19 LA [id number]) Pain Reassessment Is this a pain reassessment? Yes Sleep Is patient sleeping during reassessment? No Presence of Pain Presence of Pain Yes Pain Scale Used Pain Scale Used Numeric Location Left, Right or Bilateral Bilateral Pain Location Body Site Abdomen Description Description Cramping Intensity of Pain at present 5 Pain Behavior Guarding IVP Administration Document 12/08/17 13:18 LA (Rec: 12/08/17 13:19 LA [id number]) Charges for Administration # of IVP Administrations 1 Ondansetron HCl (Zofran Inj) 4 mg IVP ONCE ONE Stop: 12/08/17 13:04 Last Admin: 12/08/17 13:14 Dose: 4 mg IVP Administration Document 12/08/17 13:14 LA (Rec: 12/08/17 13:14 LA [id number]) Charges for Administration # of IVP Administrations 1 Pneumococcal Polyvalent Vaccine (Pneumovax 23 Vaccine) 0.5 ml IM .ONCE ONE Stop: 12/08/17 21:40 Disposition/Present on Arrival - Present on Arrival Any Indicators Present on Arrival: No History of DVT/PE: No History of Uncontrolled Diabetes: No Urinary Catheter: No History of Decub. Ulcer: No History Surgical Site Infection Following: None - Disposition Have Diagnosis and Disposition been Completed?: Yes Diagnosis: Abdominal pain, Flank pain, UTI (urinary tract infection), Sepsis, Tachycardia Disposition: HOSPITALIZED Disposition Time: 13:00 Patient Plan: Admission Patient Problems: Current Active Problems Problem Status Onset Abdominal pain Acute Flank pain Acute Sepsis Acute Tachycardia Acute UTI (urinary tract infection) Acute Condition: FAIR
[2017-12-08 12:35] LABS: URINE BACTERIA LARGE (NEG); URINE WBC 20 - 25 /hpf (0-6)
[2017-12-08 12:36] LABS: URINE AMORPHOUS SEDIMENT SMALL; URINE COARSE GRANULAR CAST TRACE /hpf (0-2)
[2017-12-08 12:36] LABS: TROPONIN I < 0.01 ng/mL
[2017-12-08 12:39] LABS: INR 1.04 (0.93-1.08); PARTIAL THROMBOPLASTIN TIME 29.1 Seconds (25.1-36.5)
[2017-12-08] MEDS ORDERED: cefTRIAXone 1 gm 1 GM/100 ML BAG IVPB STA (13:03)
--- NOTE | 2017-12-08 14:37 | CT ---
PROCEDURE: CT Abdomen and Pelvis without intravenous contrast HISTORY: Left flank pain COMPARISON: 06/01/2014. TECHNIQUE: CT scan of the abdomen and pelvis was performed without administration of intravenous contrast. Oral contrast was not administered. Coronal and sagittal reformatted images were obtained. Radiation dose: Total exam DLP = Total exam DLP = 1219.93 mGy-cm. This CT exam was performed using one or more of the following dose reduction techniques: Automated exposure control, adjustment of the mA and/or kV according to patient size, and/or use of iterative reconstruction technique. FINDINGS: LOWER THORAX: The lung bases are clear. LIVER: There is mild hepatomegaly and diffuse fatty infiltration in the liver. No gross lesion or ductal dilatation. GALLBLADDER AND BILE DUCTS: Surgically absent. PANCREAS: Normal in size with homogeneous enhancement. No gross lesion or ductal dilatation. SPLEEN: Normal in size and appearance. ADRENALS: No discrete nodule. KIDNEYS AND URETERS: Both kidneys are normal in size without nephrolithiasis . No hydronephrosis. No solid mass. VASCULATURE: No aortic aneurysm. BOWEL: The small bowel loops are normal in caliber. The colon is unremarkable. No bowel dilatation or wall thickening. APPENDIX: Normal appendix. PERITONEUM: Free fluid. No free air. LYMPH NODES: No enlarged lymph nodes. BLADDER: Grossly normal in appearance. REPRODUCTIVE: Unremarkable. BONES: No acute fracture. Within normal limits for the patient's age. OTHER FINDINGS: There is a small fat containing umbilical hernia. IMPRESSION: No acute abdominal or pelvic abnormality. Mild hepatomegaly and fatty liver.
[2017-12-08] MEDS ORDERED: Albuterol-Ipratrop 3 mg / 0.5 (3 ml) UD IH PRN (14:42)
[2017-12-08] MEDS ORDERED: Iodixanol 320 mg/ml 150 ml Bottle IV ONE (14:55)
[2017-12-08 15:37] LABS: BARBITURATES, UR NEGATIVE (NEGATIVE); BENZODIAZEPINES, UR NEGATIVE (NEGATIVE); OPIATES, UR POSITIVE (NEGATIVE); PHENCYCLIDINE, UR NEGATIVE (NEGATIVE)
--- NOTE | 2017-12-08 15:37 | HP ---
HISTORY OF PRESENT ILLNESS: The patient is a 32 year old woman with a past medical history of insulin- dependent diabetes mellitus, hypertension and sarcoidosis who presented to [facility] ED for evaluation of a 3 day history of left flank pain associated with dysuria, increased urinary frequency and nausea. The patient states that she was in her usual state of health until the onset of symptoms which began gradually and over the following 3 days had worsened in intensity. She also reports decreased p.o. intake secondary to nausea, but denies fever, chills or rigors. Upon arrival to the ED, she was noted to be afebrile but mildly tachycardic and in moderate distress secondary to left flank pain. A CT of the abdomen and pelvis demonstrated no evidence of hydronephrosis or nephrolithiasis. She was started on IV fluid hydration and intravenous Ceftriaxone before being admitted to the general medical [facility] for management of UTI. PAST MEDICAL HISTORY: As per HPI, also sciatica, GERD and anxiety disorder. PAST SURGICAL HISTORY: Cholecystectomy. ALLERGIES: ASHLEY inhibitors. MEDICATIONS: Xanax 1 mg p.o. t.i.d., Cymbalta 60 mg p.o. b.i.d., Protonix 40 mg p.o. daily, Losartan/HCTZ 50/12.5 mg p.o. daily, Singulair 10 mg p.o. daily, Oxycodone 20 mg p.o. every 6 hours p.r.n. pain, Metformin 500 mg p.o. daily, Toprol-XL 50 mg p.o. daily, Lyrica 50 mg p.o. t.i.d. and Lantus 40 units SC every evening. FAMILY HISTORY: Noncontributory. SOCIAL HISTORY: The patient reports occasional marijuana use and social alcohol use. She denies tobacco use. REVIEW OF SYSTEMS: A 14-point review of systems is negative except as per HPI. PHYSICAL EXAMINATION VITAL SIGNS: Temperature 98.1, pulse 112, blood pressure 137/106, respiratory rate 20, oxygen saturation 95% on room air. GENERAL: Moderate distress secondary to left flank pain. HEENT: PERRL. EOMI. No scleral icterus. No conjunctival pallor. NECK: Supple with full range of motion. No JVD. No bruits. LUNGS: Clear to auscultation. CARDIOVASCULAR: Regular rate and rhythm. Normal S1 and S2. ABDOMEN: Obese. Normoactive bowel sounds. Soft, nontender, and nondistended. EXTREMITIES: No edema. NEUROLOGIC: Awake, alert and oriented x3. No focal motor deficits. LABORATORY DATA: WBC 7.6 with 73% neutrophils, hemoglobin 14, hematocrit 43, platelets 315. Chemistry reviewed and unremarkable with the exception of glucose of 262. Urinalysis demonstrates cloudy urine with large bacteria, moderate leukocyte esterase and negative nitrites. IMAGING STUDIES: 1. Chest x-ray demonstrates no active disease. 2. CT of the abdomen and pelvis without contrast demonstrates no acute pathology but does demonstrate mild hepatomegaly and fatty liver. ASSESSMENT: The patient is a 32 year old woman with a past medical history of sarcoidosis, hypertension, anxiety disorder, morbid obesity, insulin dependent diabetes mellitus and sciatica who presented for evaluation of a 3 day history of worsening left flank pain associated with nausea, vomiting, decreased p.o. intake and dysuria and who was admitted for management of urinary tract infection. PLAN: 1. UTI. The patient has been cultured in the ED. We will await the results. We will continue Ceftriaxone 1 g IV daily. Continue to monitor for fever and leukocytosis. 2. Insulin-dependent diabetes mellitus. The patient is on Lantus at home but this is not on formulary. We will start Levemir 35 units SC every evening and Metformin 500 mg p.o. daily. We will start a medium dose insulin sliding scale for coverage and monitor fingersticks before meals and at bedtime. 3. Hypertension. Resume home medications. 4. Anxiety disorder. Resume Xanax 1 mg p.o. t.i.d. 5. Sciatica. Resume Oxycodone 20 mg p.o. every 6 hours p.r.n. pain. We will place the patient on a bowel regimen. 6. Sarcoidosis. Continue with supplemental oxygen and bronchodilators as needed. 7. GERD. Continue Protonix 40 mg p.o. daily. 8. Prophylaxis. GI prophylaxis is not indicated as the patient remains on Protonix. DVT prophylaxis is not indicated as patient is ambulatory. CODE STATUS: Full code. Greg Carson MD [facility] # [id number]
--- NOTE | 2017-12-08 16:06 | CT ---
PROCEDURE: CT Chest with contrast (Pulmonary Angiogram) HISTORY: r/o PE COMPARISON: None available. TECHNIQUE: Axial computed tomography images were obtained of the chest in the pulmonary arterial phase of enhancement. Coronal and sagittal reformatted images were created and reviewed. Intravenous contrast dose: 150 cc of Visipaque Radiation dose: Total exam DLP = 531 mGy-cm. This CT exam was performed using one or more of the following dose reduction techniques: Automated exposure control, adjustment of the mA and/or kV according to patient size, and/or use of iterative reconstruction technique. FINDINGS: PULMONARY ARTERIES: Unremarkable. No pulmonary embolism. AORTA: No acute findings. No thoracic aortic aneurysm. LUNGS: Unremarkable. No nodule, mass or pulmonary consolidation. PLEURAL SPACES: Unremarkable. No effusion or pneuomothorax. HEART: Unremarkable. No cardiomegaly. No significant pericardial effusion. LYMPH NODES: No lymphadenopathy. BONES, CHEST WALL: Unremarkable. No fracture or destructive lesion OTHER FINDINGS: Fatty infiltration of the liver IMPRESSION: Unremarkable CT pulmonary angiogram. No pulmonary embolus.
[2017-12-08 16:44] LABS: VENOUS BLOOD GAS BASE EXCESS 1.3 mmol/L (0.0-2.0); VENOUS BLOOD GAS PO2 37 mm/Hg (30-55); VENOUS BLOOD PH 7.42 (7.32-7.43)
[2017-12-08] MEDS: oxyCODONE 20 mg Immediate Release Tab PO PRN ×2 (17:06→23:45)
[2017-12-08] MEDS: Insulin Detemir 100 units/ml Vial (Levemir) SC SCH (17:06)
[2017-12-08] MEDS: Insulin Reg-MEDIUM-Coverage SC SCH ×2 (17:14→21:44)
--- NOTE | 2017-12-08 18:37 | PCM.SEPTIC ---
Sepsis Progress Note - Reassessment Type Date of Evaluation: 12/08/17 Time of Evaluation: 20:30 Reassessment Type: Non-invasive reassessment - Non Invasive Reassessment Were the most recent vital sign reviewed: Yes Vital Sign (Latest): Temp Pulse Resp BP Pulse Ox 99.8 F H 114 H 20 147/97 H 98 12/08/17 16:00 12/08/17 16:00 12/08/17 16:00 12/08/17 16:00 12/08/17 16:00 Cardiovascular: Yes: Regular Rate, Rhythm Respiratory: Yes: Normal Breath Sounds Capillary Refill: Normal (Less than 2 sec) Pulses: Normal Radial, Normal Dorsalis Pedis, Normal Posterior Tibialis Skin: Normal Color
[2017-12-08 20:17] LABS: VENOUS BLOOD GAS BASE EXCESS -0.4 mmol/L (0.0-2.0); VENOUS BLOOD GAS PO2 43 mm/Hg (30-55); VENOUS BLOOD PH 7.38 (7.32-7.43)
[2017-12-08] MEDS ORDERED: Metoprolol 1 mg/ml Inj IVP ONE (20:35)
[2017-12-08] MEDS: Sodium Chloride 0.9% 1,000 ML IV SCH (21:16)
[2017-12-08] MEDS ORDERED: Pneumococcal 23-Valent Vaccine IM ONE (21:39)
[2017-12-08] MEDS ORDERED: Apap-Butalbital-Caffeine 325-50-40mg Tab PO STA (23:30)
--- NOTE | 2017-12-08 23:32 | CP.PCM.PN ---
Subjective - Date & Time of Evaluation Date of Evaluation: 12/08/17 Time of Evaluation: 23:31 - Subjective Subjective: Fioricet requested for RICH. Went to see patient. Still has headache. Gives history of migraine. Also complains of diffuse abdominal pain. Earlier received morphine in the ER for abdominal pain which helped her. Feels anxious. Has no other complaints. Medical record was reviewed. This 32 year old white woman was admitted dysuria, frequency, nausea, left flank pain, UTI. Has PMH of HTN, IDDM, GERD,Anxiety ,sciatica, sarcoidosis,obesity. Objective - Vital Signs/Intake and Output Vital Signs (last 24 hours): Temp Pulse Resp BP Pulse Ox 99.8 F H 109 H 20 134/98 H 98 12/08/17 21:05 12/08/17 22:00 12/08/17 21:05 12/08/17 21:13 12/08/17 20:30 Intake and Output: 12/08/17 12/09/17 18:59 06:59 Intake Total 240 Balance 240 - Medications Medications: Current Medications Acetaminophen/Butalbital/Caffeine (Fioricet) 1 tab PO STAT STA Stop: 12/08/17 23:31 Albuterol/Ipratropium (Duoneb 3 Mg/0.5 Mg (3 Ml) Ud) 3 ml IH [id number] PRN PRN Reason: Shortness of Breath Alprazolam (Xanax) 1 mg PO TID PRN; Protocol PRN Reason: Anxiety Last Admin: 12/08/17 18:07 Dose: 1 mg Docusate Sodium (Colace) 100 mg PO BID [facility] Last Admin: 12/08/17 17:04 Dose: 100 mg Duloxetine HCl (Cymbalta) 60 mg PO BID [facility] Last Admin: 12/08/17 17:05 Dose: 60 mg Ceftriaxone Sodium (Rocephin 1 Gram Ivpb) 1 gm in 100 mls @ 100 mls/hr IVPB DAILY [facility] PRN Reason: Protocol Sodium Chloride (Sodium Chloride 0.9%) 1,000 mls @ 100 mls/hr IV .Q10H [facility] Last Admin: 12/08/17 21:16 Dose: 100 mls/hr Insulin Detemir (Levemir) 35 unit SC QPM [facility] Last Admin: 12/08/17 17:06 Dose: 35 unit Insulin Human Regular (Humulin R Med) 0 units SC ACHS [facility] PRN Reason: Protocol Last Admin: 12/08/17 21:44 Dose: Not Given Losartan Potassium (Cozaar) 50 mg PO DAILY [facility] Metformin HCl (Glucophage) 500 mg PO DAILY [facility] Metoprolol Succinate (Toprol Xl) 50 mg PO DAILY [facility] Montelukast Sodium (Singulair) 10 mg PO DAILY [facility] Ondansetron HCl (Zofran Inj) 4 mg IVP Q6H PRN PRN Reason: Nausea/Vomiting Last Admin: 12/08/17 17:07 Dose: 4 mg Oxycodone HCl (Oxycodone Immediate Release Tab) 20 mg PO Q6H PRN PRN Reason: Pain, severe (8-10) Last Admin: 12/08/17 17:06 Dose: 20 mg Pantoprazole Sodium (Protonix Ec Tab) 40 mg PO DAILY [facility] - Labs Labs: PT 12.0 SECONDS (9.4-12.5) 12/08/17 12:08 INR 1.04 (0.93-1.08) 12/08/17 12:08 APTT 29.1 Seconds (25.1-36.5) 12/08/17 12:08 Most Recent Lab Values WBC 7.6 10^3/ul (4.5-11.0) D 12/08/17 12:08 RBC 5.15 10^6/uL (3.5-6.1) 12/08/17 12:08 Hgb 14.2 g/dL (12.0-16.0) 12/08/17 12:08 Hct 43.2 % (36.0-48.0) 12/08/17 12:08 MCV 83.9 fl (80.0-105.0) 12/08/17 12:08 MCH 27.6 pg (25.0-35.0) 12/08/17 12:08 MCHC 32.9 g/dl (31.0-37.0) 12/08/17 12:08 RDW 14.0 % (11.5-14.5) 12/08/17 12:08 Plt Count 315 10^3/uL (120.0-450.0) 12/08/17 12:08 MPV 9.0 fl (7.0-11.0) 12/08/17 12:08 Gran % 72.8 % (50.0-68.0) H 12/08/17 12:08 Lymph % (Auto) 16.7 % (22.0-35.0) L 12/08/17 12:08 Morrill % (Auto) 7.5 % (1.0-6.0) H 12/08/17 12:08 Eos % (Auto) 2.9 % (1.5-5.0) 12/08/17 12:08 Baso % (Auto) 0.1 % (0.0-3.0) 12/08/17 12:08 Gran # 5.52 (1.4-6.5) 12/08/17 12:08 Lymph # (Auto) 1.3 (1.2-3.4) 12/08/17 12: Morrill # (Auto) 0.6 (0.1-0.6) 12/08/17 12:08 Eos # (Auto) 0.2 (0.0-0.7) 12/08/17 12:08 Baso # (Auto) 0.01 K/mm3 (0.0-2.0) 12/08/17 12:08 PT 12.0 SECONDS (9.4-12.5) 12/08/17 12:08 INR 1.04 (0.93-1.08) 12/08/17 12:08 APTT 29.1 Seconds (25.1-36.5) 12/08/17 12:08 D-Dimer, Quantitative 394 ng/mL (0-243) H 12/08/17 12:08 pO2 43 mm/Hg (30-55) 12/08/17 20:10 VBG pH 7.38 (7.32-7.43) 12/08/17 20:10 VBG pCO2 42.0 (40-60) 12/08/17 20:10 VBG HCO3 24.8 mmol/l (21-28) 12/08/17 20:10 VBG Total CO2 26.1 mmol.L (22-28) 12/08/17 20:10 VBG O2 Sat (Calc) 86.6 % (40-65) H 12/08/17 20:10 VBG Base Excess -0.4 mmol/L (0.0-2.0) L 12/08/17 20:10 VBG Potassium 3.6 mmol/L (3.6-5.2) 12/08/17 20:10 Sodium 136.0 mmol/L (132-148) 12/08/17 20:10 Chloride 101.0 mmol/L (98-107) 12/08/17 20:10 Glucose 216 mg/dl (65-105) H 12/08/17 20:10 Lactate 1.6 mmol/L (0.7-2.1) 12/08/17 20:10 FiO2 21.0 % 12/08/17 20:10 Sodium 138 mmol/L (132-148) 12/08/17 12:08 Potassium 3.8 mmol/L (3.6-5.0) 12/08/17 12:08 Chloride 100 mmol/L (98-107) 12/08/17 12:08 Carbon Dioxide 25 mmol/L (21-33) 12/08/17 12:08 Anion Gap 16 (10-20) 12/08/17 12:08 BUN 10 mg/dL (7-21) 12/08/17 12:08 Creatinine 0.8 mg/dl (0.7-1.2) 12/08/17 12:08 Est GFR ( Amer) > 60 12/08/17 12:08 Est GFR (Non-Af Amer) > 60 12/08/17 12:08 POC Glucose (mg/dL) 190 mg/dL (65-110) H 12/08/17 21:24 Random Glucose 262 mg/dL (70-110) H 12/08/17 12:08 Calcium 9.6 mg/dL (8.4-10.5) 12/08/17 12:08 Phosphorus 2.8 mg/dL (2.5-4.5) 12/08/17 12:08 Magnesium 1.7 mg/dL (1.7-2.2) 12/08/17 12:08 Total Bilirubin 0.5 mg/dL (0.2-1.3) 12/08/17 12:08 AST 42 U/L (14-36) H D 12/08/17 12:08 ALT 53 U/L (7-56) 12/08/17 12:08 Alkaline Phosphatase 130 U/L (38-126) H 12/08/17 12:08 Lactate Dehydrogenase 486 U/L (333-699) 12/08/17 12:08 Total Creatine Kinase 34 U/L (35-230) L 12/08/17 12:08 Troponin I < 0.01 ng/mL 12/08/17 12:08 Total Protein 7.7 g/dL (5.8-8.3) 12/08/17 12:08 Albumin 3.9 g/dL (3.0-4.8) 12/08/17 12:08 Globulin 3.7 gm/dL 12/08/17 12:08 Albumin/Globulin Ratio 1.1 (1.1-1.8) 12/08/17 12:08 Amylase 45 U/L (35-125) 12/08/17 12:08 Lipase 76 U/L (23-300) 12/08/17 12:08 Venous Blood Potassium 3.6 mmol/L (3.6-5.2) 12/08/17 20:10 Urine Color Yellow (YELLOW) 12/08/17 12:00 Urine Appearance Cloudy (CLEAR) 12/08/17 12:00 Urine pH 6.0 (4.7-8.0) 12/08/17 12:00 Ur Specific [place] 1.025 (1.005-1.035) 12/08/17 12:00 Urine Protein 30 mg/dL (<30 mg/dL) H 12/08/17 12:00 Urine Glucose (UA) Negative mg/dL (NEGATIVE) 12/08/17 12:00 Urine Ketones 15 mg/dL (NEGATIVE) H 12/08/17 12:00 Urine Blood Trace-intact (NEGATIVE) H 12/08/17 12:00 Urine Nitrate Negative (NEGATIVE) 12/08/17 12:00 Urine Bilirubin Small (NEGATIVE) H 12/08/17 12:00 Urine Urobilinogen 0.2 E.U./dL (<1 E.U./dL) 12/08/17 12:00 Ur Leukocyte Esterase Moderate Peter/uL (NEGATIVE) H 12/08/17 12:00 Urine RBC 2 - 5 /hpf (0-2) 12/08/17 12:00 Urine WBC 20 - 25 /hpf (0-6) 12/08/17 12:00 Ur Epithelial Cells 6 - 8 /hpf (0-5) 12/08/17 12:00 Amorphous Sediment Small 12/08/17 12:00 Urine Bacteria Large (NEG) 12/08/17 12:00 Coarse Granular Casts Trace /hpf (0-2) H 12/08/17 12:00 Urine Other Uyeast 12/08/17 12:00 Urine HCG, Qual Negative (NEGATIVE) 12/08/17 12:00 Urine Opiates Screen Positive (NEGATIVE) H 12/08/17 14:59 Urine Methadone Screen Negative (NEGATIVE) 12/08/17 14:59 Ur Barbiturates Screen Negative (NEGATIVE) 12/08/17 14:59 Ur Phencyclidine Scrn Negative (NEGATIVE) 12/08/17 14:59 Ur Amphetamines Screen Negative (NEGATIVE) 12/08/17 14:59 U Benzodiazepines Scrn Negative (NEGATIVE) 12/08/17 14:59 U Oth Cocaine Metabols Negative (NEGATIVE) 12/08/17 14:59 U Cannabinoids Screen Positive (NEGATIVE) H 12/08/17 14:59 Alcohol, Quantitative < 10 mg/dL (0-10) 12/08/17 12:08 Influenza Typ A,B (EIA) Negative for flu a/b (NEGATIVE) 12/08/17 11:32 - Constitutional Appears: Well, No Acute Distress - Head Exam Head Exam: ATRAUMATIC, NORMAL INSPECTION, NORMOCEPHALIC - Eye Exam Eye Exam: Normal appearance - ENT Exam ENT Exam: Normal External Ear Exam - Neck Exam Neck Exam: Normal Inspection - Respiratory Exam Respiratory Exam: NORMAL BREATHING PATTERN - Cardiovascular Exam Cardiovascular Exam: absent: JVD - GI/Abdominal Exam GI & Abdominal Exam: absent: Distended - Rectal Exam Rectal Exam: Deferred - Exam Additional comments: Deferred. - Extremities Exam Extremities Exam: Normal Inspection - Back Exam Back Exam: NORMAL INSPECTION - Neurological Exam Neurological Exam: Alert, Awake, Oriented x3 - Psychiatric Exam Psychiatric exam: Normal Affect, Normal Mood - Skin Skin Exam: Normal Color Assessment and Plan - Assessment and Plan (Free Text) Assessment: Headache. Abdominal pain,left flank pain. UTI. IDDM. HTN. Obesity. GERD. Anxiety . Sarcoidosis. Plan: Morphine 4 mg IV x 1. Xanax 0.5 mg PO x 1. Continue present management .
[2017-12-09] MEDS ORDERED: Morphine 4 mg/ml ISec IVP STA (01:24)
[2017-12-09] MEDS ORDERED: Morphine 4 mg/ml ISec IVP ONE (04:23)
[2017-12-09 06:33] LABS: BASO # 0.03 K/mm3 (0.0-2.0); BASO % 0.5 % (0.0-3.0); EOS # 0.2 (0.0-0.7); EOS % 3.8 % (1.5-5.0); GRAN # 3.22 (1.4-6.5); GRAN % 58.1 % (50.0-68.0); HEMOGLOBIN 12.5 g/dL (12.0-16.0); LYMPH # 1.2 (1.2-3.4); LYMPH % 21.5 % (22.0-35.0); MEAN CELL VOLUME 83.5 fl (80.0-105.0); MEAN CORPUSCULAR HEMOGLOBIN 27.1 pg (25.0-35.0); MEAN CORPUSCULAR HGB CONC 32.4 g/dl (31.0-37.0); MEAN PLATELET VOLUME 8.8 fl (7.0-11.0); MONO # 0.9 (0.1-0.6); MONO % 16.1 % (1.0-6.0); RBC 4.62 10^6/uL (3.5-6.1); RED CELL DISTRIBUTION WIDTH 14.3 % (11.5-14.5); WHITE BLOOD COUNT 5.5 10^3/ul (4.5-11.0)
[2017-12-09 07:17] LABS: ALBUMIN 3.3 g/dL (3.0-4.8); ALT/SGPT 111 U/L (7-56); AST/SGOT 237 U/L (14-36); BLOOD UREA NITROGEN 8 mg/dL (7-21); CALCIUM 8.8 mg/dL (8.4-10.5); GFR AFRICAN-AMERICAN > 60; GFR NON-AFRICAN AMERICAN > 60
--- NOTE | 2017-12-09 07:35 | CARD ---
APPROVED REPORT EKG Measurement Heart [id number] <Conclusion> Sinus tachycardia Cannot rule out Anterior infarct, age undetermined Abnormal ECG
[2017-12-09] MEDS: Insulin Reg-MEDIUM-Coverage SC SCH ×4 (08:14→17:44)
[2017-12-09] MEDS: Sodium Chloride 0.9% 1,000 ML IV SCH (08:15)
[2017-12-09] MEDS: Pantoprazole 40 mg EC Tab PO SCH (09:38)
[2017-12-09] MEDS: cefTRIAXone 1 gm 1 GM/100 ML BAG IVPB SCH (09:38)
[2017-12-09] MEDS: Metoprolol Succinate 50 mg XL Tab PO SCH (09:39)
--- NOTE | 2017-12-09 09:49 | CARD ---
APPROVED REPORT EKG Measurement Heart [id number] <Conclusion> Normal sinus rhythm Normal ECG No change
--- NOTE | 2017-12-09 12:16 | PN ---
DATE: 12/09/2017 LOCATION: The patient is in room 369, bed 2. SUBJECTIVE: She has no complaints this morning. There have been no acute events overnight. She is afebrile. PHYSICAL EXAMINATION: VITAL SIGNS: Thad Carson MD
[2017-12-09] MEDS: oxyCODONE 20 mg Immediate Release Tab PO PRN ×2 (13:55→21:19)
--- NOTE | 2017-12-09 14:06 | PN ---
DATE: LOCATION: Currently in room 369, bed 2. SUBJECTIVE: There have been no acute events overnight. She denies any fever, chills, or pains. PHYSICAL EXAMINATION: VITAL SIGNS: Temperature of 98.2, pulse rate of 81, blood pressure of 129/80, respiratory rate of 20 with an O2 saturation of 95% on room air. HEENT: PERRLA. EOMI. No icterus present. NECK: Supple with no jugular venous distention or bruits present. LUNGS: Clear to auscultation and percussion bilaterally. HEART: Regular rate and rhythm. No murmurs, rubs, or gallops ABDOMEN: Soft and it is nontender. Bowel sounds are normoactive. EXTREMITIES: Show no deformities or edema. NEUROLOGIC: There are no focal motor deficits. LABORATORY DATA: CBC is essentially normal. Chemistries show a potassium of 3.4. Random glucose of 176. AST of 237 with an ALT of 111, bilirubin is 0.8. Venous blood potassium is 5.9, which suggests that the 3.4 blood is hemolyzed. Microbiology and urine specimen pending. CURRENT DIAGNOSES: 1. Urinary tract infection. 2. Intractable abdominal pain. 3. Flank pain. 4. Tachycardia. Thad Carson MD
[2017-12-09] MEDS: Insulin Detemir 100 units/ml Vial (Levemir) SC SCH (17:44)
[2017-12-10 08:26] LABS: ALB/GLOB RATIO 1.1 (1.1-1.8); ALBUMIN 3.2 g/dL (3.0-4.8); ALT/SGPT 114 U/L (7-56); AST/SGOT 97 U/L (14-36); BLOOD UREA NITROGEN 5 mg/dL (7-21); CALCIUM 8.5 mg/dL (8.4-10.5); GFR AFRICAN-AMERICAN > 60; GFR NON-AFRICAN AMERICAN > 60
[2017-12-10 08:29] LABS: BASO # 0.01 K/mm3 (0.0-2.0); BASO % 0.2 % (0.0-3.0); EOS # 0.2 (0.0-0.7); EOS % 4.1 % (1.5-5.0); GRAN # 2.37 (1.4-6.5); GRAN % 50.8 % (50.0-68.0); HEMOGLOBIN 11.6 g/dL (12.0-16.0); LYMPH # 1.5 (1.2-3.4); LYMPH % 32.5 % (22.0-35.0); MEAN CELL VOLUME 83.8 fl (80.0-105.0); MEAN CORPUSCULAR HEMOGLOBIN 27.2 pg (25.0-35.0); MEAN CORPUSCULAR HGB CONC 32.5 g/dl (31.0-37.0); MEAN PLATELET VOLUME 8.8 fl (7.0-11.0); MONO # 0.6 (0.1-0.6); MONO % 12.4 % (1.0-6.0); RBC 4.26 10^6/uL (3.5-6.1); RED CELL DISTRIBUTION WIDTH 14.2 % (11.5-14.5); WHITE BLOOD COUNT 4.7 10^3/ul (4.5-11.0)
[2017-12-10] MEDS: Insulin Reg-MEDIUM-Coverage SC SCH ×4 (10:02→22:39)
[2017-12-10] MEDS: Pantoprazole 40 mg EC Tab PO SCH (10:03)
[2017-12-10] MEDS: cefTRIAXone 1 gm 1 GM/100 ML BAG IVPB SCH (10:03)
[2017-12-10] MEDS: Metoprolol Succinate 50 mg XL Tab PO SCH (10:04)
--- NOTE | 2017-12-10 11:08 | PN ---
SUBJECTIVE: The patient was seen and examined at the bedside on the remote telemetry barrera. No acute events overnight. She remains afebrile and hemodynamically stable. This morning she reports persistent diarrhea, stating she has had 8 bowel movements in the past 24 hours, which are characterized as loose and slightly watery. She denies melena or blood per rectum. She also endorses mild epigastric abdominal tenderness and nausea but states it is adequately controlled with her Zofran. OBJECTIVE: VITAL SIGNS: Temperature 98.8, pulse 90, blood pressure 116/68, respiratory rate 20, oxygen saturation 98% on room air. GENERAL: Morbidly obese woman lying in bed, in no apparent distress. HEENT: PERRL, EOMI. No scleral icterus. No conjunctival pallor. NECK: Supple with full range of motion. No JVD. No bruits. LUNGS: Clear to auscultation. CARDIOVASCULAR: Regular rate and rhythm. Normal S1 and S2. ABDOMEN: Obese. Normoactive bowel sounds. Soft, tender to palpation to epigastrium with voluntary guarding. No rigidity. No tympany. No distension. EXTREMITIES: No edema. NEUROLOGIC: Awake, alert and oriented x3. No focal motor deficits. LABORATORY DATA: Morning labs are pending. Blood cultures with no growth to date. Urine culture with gram-negative rods with speciation pending. C. diff toxin is pending. ASSESSMENT: The patient is a 32 year old woman with a past medical history of sarcoidosis, hypertension, anxiety disorder, morbid obesity, IDDM and sciatica who presented for evaluation of a 3 day history of worsening left flank pain associated with nausea, vomiting, decreased p.o. intake, and dysuria and who was admitted for management of UTI. PLAN: 1. Urinary tract infection. Preliminary urine cultures demonstrate gram- negative rods with speciation pending. The patient reports significant improvement in her urinary symptoms since admission. Continue with Ceftriaxone 1 g IV daily. Continue to monitor for fever and leukocytosis. 2. Diarrhea. Patient reports having 10 bowel movements per day for 1 week preceding her presentation to the ED. She also reports epigastric abdominal discomfort and bloating. Of note, she is on Prednisone for her sarcoidosis which would predispose her to gastritis. Dr. Watkins of GI has been consulted. C. diff is pending. We will defer initiation of anti-diarrheal therapy pending result of C. diff toxin. 3. Insulin-dependent diabetes mellitus. Continue Metformin 500 mg p.o. daily, medium dose insulin sliding scale and Levemir 40 units SC q. pm. 4. Hypertension. Continue Losartan 50 mg p.o. daily and Toprol-XL 50 mg p.o. daily. 5. Anxiety disorder. Continue Xanax 1 mg p.o. t.i.d. and Cymbalta 60 mg p.o. twice a day. 6. Sciatica. Continue oxycodone 20 mg p.o. every 6 hours as needed for pain. 7. Sarcoidosis. Continue supplemental oxygen and bronchodilators as needed. Continue Singulair 10 mg p.o. daily and we will start Prednisone 5 mg p.o. daily. 8. GERD. Continue Protonix 40 mg p.o. daily. As above, Dr. Watkins has been consulted for further evaluation and recommendations. 9. Prophylaxis. Patient remains on Protonix. DVT prophylaxis is not indicated as patient is ambulatory. CODE STATUS: Full code. Greg Carson MD [facility] # [id number] SHAHIDA
[2017-12-10] MEDS: oxyCODONE 20 mg Immediate Release Tab PO PRN ×2 (11:34→22:40)
[2017-12-10 13:25] LABS: AMYLASE 56 U/L (35-125); LIPASE 215 U/L (23-300)
[2017-12-10] MEDS: Insulin Detemir 100 units/ml Vial (Levemir) SC SCH (17:32)
[2017-12-11 07:12] LABS: BASO # 0.01 K/mm3 (0.0-2.0); BASO % 0.2 % (0.0-3.0); EOS # 0.2 (0.0-0.7); EOS % 3.6 % (1.5-5.0); GRAN # 3.34 (1.4-6.5); GRAN % 59.2 % (50.0-68.0); HEMOGLOBIN 11.6 g/dL (12.0-16.0); LYMPH # 1.5 (1.2-3.4); LYMPH % 26.5 % (22.0-35.0); MEAN CELL VOLUME 83.6 fl (80.0-105.0); MEAN CORPUSCULAR HEMOGLOBIN 26.9 pg (25.0-35.0); MEAN CORPUSCULAR HGB CONC 32.1 g/dl (31.0-37.0); MEAN PLATELET VOLUME 8.9 fl (7.0-11.0); MONO # 0.6 (0.1-0.6); MONO % 10.5 % (1.0-6.0); RBC 4.32 10^6/uL (3.5-6.1); RED CELL DISTRIBUTION WIDTH 14.1 % (11.5-14.5); WHITE BLOOD COUNT 5.6 10^3/ul (4.5-11.0)
[2017-12-11 07:34] LABS: ALB/GLOB RATIO 1.2 (1.1-1.8); ALBUMIN 3.3 g/dL (3.0-4.8); ALT/SGPT 100 U/L (7-56); AST/SGOT 59 U/L (14-36); BLOOD UREA NITROGEN 5 mg/dL (7-21); CALCIUM 8.7 mg/dL (8.4-10.5); GFR AFRICAN-AMERICAN > 60; GFR NON-AFRICAN AMERICAN > 60
[2017-12-11] MEDS: oxyCODONE 20 mg Immediate Release Tab PO PRN ×3 (07:52→23:01)
[2017-12-11] MEDS: Insulin Reg-MEDIUM-Coverage SC SCH ×4 (07:58→22:26)
[2017-12-11] MEDS: Pantoprazole 40 mg EC Tab PO SCH (09:18)
[2017-12-11] MEDS: cefTRIAXone 1 gm 1 GM/100 ML BAG IVPB SCH (09:18)
[2017-12-11] MEDS: Metoprolol Succinate 50 mg XL Tab PO SCH (09:18)
--- NOTE | 2017-12-11 11:55 | CP.PCM.PN ---
Subjective - Date & Time of Evaluation Date of Evaluation: 12/11/17 Time of Evaluation: 09:00 - Subjective Subjective: SUBJECTIVE: The patient was seen and examined at bedside. No acute events overnight. Diarrhea improving but not resolved. Denies fevers, chills or rigors. OBJECTIVE: VS: T 98.2, P 78, BP 112/72, RR 18, O2 99% RA Gen: NAD HEENT: PERRL, EOMI, no icterus, no conjunctival pallor Neck: no JVD Lungs: CTA CV: RRR, no m/r/g Abd: NABS, (+) epigastric TTP Ext: no edema Neuro: AAO x 3, no deficits LABORATORY DATA: Reviewed and demonstrates mild transaminitis ASSESSMENT: The patient is a 32 year old woman with multiple medical comorbidities who was admitted for management of UTI. PLAN: 1. UTI. Cultures reviewed and sensitivities noted. Continue with Ceftriaxone 1 gm IV daily to complete a 5 day course. 2. Diarrhea, improving. C. diff negative. Input from Dr. Watkins noted and patient is scheduled for EGD. 3. IDDM. Continue with current regimen. 4. HTN. BP controlled, continue with current medications. 5. Anxiety d/o. Continue with Xanax. 6. Sciatica. Continue current analgesic regimen. 7. Sarcoidosis. Continue supplemental oxygen, bronchodilators and Prednisone 5 mg po daily 8. GERD. As above, input from Dr. Watkins appreciated. Patient reportedly scheduled for EGD. CODE STATUS: Full Code Objective - Vital Signs/Intake and Output Vital Signs (last 24 hours): Temp Pulse Resp BP Pulse Ox 98.1 F 78 20 112/62 96 12/11/17 06:00 12/11/17 06:00 12/11/17 06:00 12/11/17 06:00 12/11/17 06:00 Intake and Output: 12/11/17 12/11/17 06:59 18:59 Intake Total 300 Balance 300 - Medications Medications: Current Medications Albuterol/Ipratropium (Duoneb 3 Mg/0.5 Mg (3 Ml) Ud) 3 ml IH [id number] PRN PRN Reason: Shortness of Breath Alprazolam (Xanax) 1 mg PO TID PRN; Protocol PRN Reason: Anxiety Last Admin: 12/10/17 23:42 Dose: 1 mg Duloxetine HCl (Cymbalta) 60 mg PO BID [facility] Last Admin: 12/11/17 09:18 Dose: 60 mg Ceftriaxone Sodium (Rocephin 1 Gram Ivpb) 1 gm in 100 mls @ 100 mls/hr IVPB DAILY [facility] PRN Reason: Protocol Last Admin: 12/11/17 09:18 Dose: 100 mls/hr Insulin Detemir (Levemir) 40 unit SC QPM [facility] Last Admin: 12/10/17 17:32 Dose: 40 unit Insulin Human Regular (Humulin R Med) 0 units SC ACHS [facility] PRN Reason: Protocol Last Admin: 12/11/17 11:38 Dose: Not Given Losartan Potassium (Cozaar) 50 mg PO DAILY [facility] Last Admin: 12/11/17 09:18 Dose: 50 mg Metformin HCl (Glucophage) 500 mg PO DAILY [facility] Last Admin: 12/11/17 09:18 Dose: 500 mg Metoprolol Succinate (Toprol Xl) 50 mg PO DAILY [facility] Last Admin: 12/11/17 09:18 Dose: 50 mg Montelukast Sodium (Singulair) 10 mg PO DAILY [facility] Last Admin: 12/11/17 09:18 Dose: 10 mg Ondansetron HCl (Zofran Inj) 4 mg IVP Q6H PRN PRN Reason: Nausea/Vomiting Last Admin: 12/10/17 11:34 Dose: 4 mg Oxycodone HCl (Oxycodone Immediate Release Tab) 20 mg PO Q6H PRN PRN Reason: Pain, severe (8-10) Last Admin: 12/11/17 07:52 Dose: 20 mg Pantoprazole Sodium (Protonix Ec Tab) 40 mg PO DAILY [facility] Last Admin: 12/11/17 09:18 Dose: 40 mg Prednisone (Prednisone Tab) 5 mg PO DAILY [facility] Last Admin: 12/11/17 09:18 Dose: 5 mg - Labs Labs: 12/11/17 06:45 12/11/17 06:45 PT 12.0 SECONDS (9.4-12.5) 12/08/17 12:08 INR 1.04 (0.93-1.08) 12/08/17 12:08 APTT 29.1 Seconds (25.1-36.5) 12/08/17 12:08
[2017-12-11] MEDS: Insulin Detemir 100 units/ml Vial (Levemir) SC SCH (17:19)
[2017-12-12 07:16] LABS: BASO # 0.05 K/mm3 (0.0-2.0); BASO % 0.6 % (0.0-3.0); EOS # 0.4 (0.0-0.7); EOS % 4.4 % (1.5-5.0); GRAN # 4.73 (1.4-6.5); GRAN % 55.6 % (50.0-68.0); HEMOGLOBIN 11.8 g/dL (12.0-16.0); LYMPH # 2.6 (1.2-3.4); LYMPH % 30.9 % (22.0-35.0); MEAN CELL VOLUME 83.8 fl (80.0-105.0); MEAN CORPUSCULAR HEMOGLOBIN 27.3 pg (25.0-35.0); MEAN CORPUSCULAR HGB CONC 32.6 g/dl (31.0-37.0); MEAN PLATELET VOLUME 8.6 fl (7.0-11.0); MONO # 0.7 (0.1-0.6); MONO % 8.5 % (1.0-6.0); RBC 4.32 10^6/uL (3.5-6.1); RED CELL DISTRIBUTION WIDTH 14.2 % (11.5-14.5); WHITE BLOOD COUNT 8.5 10^3/ul (4.5-11.0)
[2017-12-12 07:45] LABS: ALB/GLOB RATIO 1.2 (1.1-1.8); ALBUMIN 3.4 g/dL (3.0-4.8); ALT/SGPT 92 U/L (7-56); AST/SGOT 47 U/L (14-36); BLOOD UREA NITROGEN 5 mg/dL (7-21); CALCIUM 8.7 mg/dL (8.4-10.5); GFR AFRICAN-AMERICAN > 60; GFR NON-AFRICAN AMERICAN > 60
--- NOTE | 2017-12-12 07:54 | PN ---
DATE: 12/12/2017 SUBJECTIVE: I saw Mrs. Patel this morning. She is a 32-year-old white female with past medical history of diabetes, sarcoidosis, high blood pressure admitted with severe urinary tract infection. Patient also indicates diffuse abdominal pain including periumbilical as well as back pain on both sides and abdominal distention. GI complaints at the time of admission and also longstanding include early satiety, postprandial nausea, and severe epigastric pain with acid reflux. At bedside this morning, the patient indicates the diarrhea she has been having has been decreased somewhat, bowel movements are not as liquid, the volume is decreased. She also is complaining about an anxiety disorder. Abdominal pain is still significant, especially in the epigastric area as well as periumbilical. No hematemesis or rectal bleeding noted. PHYSICAL EXAMINATION: VITAL SIGNS: I reviewed this patient's vital signs. HEENT: Noncontributory. LUNGS: Clear to auscultation. HEART: Irregular rhythm, mildly tachycardia. ABDOMEN: Protuberant, distended. Tender periumbilical, epigastric above the umbilicus. LABORATORY DATA: Recent labs reviewed as well as progress notes. OVERALL ASSESSMENT: This is a 32-year-old white female complaints of early satiety, abdominal pain, postprandial nausea, with diarrhea, currently admitted with urinary tract infection. Patient is currently scheduled for an enteroscopy, esophagogastroduodenoscopy, later on this morning. Patient was advised risks, benefits and alternatives of the procedure including risks of hemorrhage, perforation and surgery. She was advised of the above and understood the discussion. She will sign a formal consent when she arrives in Endoscopy dept later on this morning. Donavon Watkins DO, PhD SHAHIDA
[2017-12-12] MEDS: Insulin Reg-MEDIUM-Coverage SC SCH ×4 (08:13→22:12)
--- NOTE | 2017-12-12 08:21 | CON ---
DATE: 12/10/2017 HISTORY OF PRESENT ILLNESS: I saw Mrs. Patel this afternoon. 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 Patient indicated increasing symptoms especially over the past several days prior to admission. Note that, the patient has noted longstanding early satiety, is with nausea on a daily basis. She has frequent flank pain, which was periumbilical discomfort which had been worked up on a prior basis several years ago. Patient denied any hematemesis or rectal bleeding. She has acid reflux disease which she has had longstanding for which she has been taking pantoprazole either on a once or twice a day basis. Despite this, she still presents with daily nausea. Note that she did not practice antireflux precautions despite the fact this has been reviewed with her on multiple occasions. Diabetes, she has been on metformin and Lantus. PHYSICAL EXAMINATION: VITAL SIGNS: I reviewed this patient's vital signs. HEENT: Noncontributory. LUNGS: Decreased breath sounds in both sides. I did not hear any wheezes or rhonchi at this time point. HEART: Irregular rhythm. ABDOMEN: Protuberant, soft. Tender in the area periumbilical and above the umbilicus. She is especially tender in the area of the epigastric area and left upper quadrant. Reviewed the abdominal and pelvic CT which is significant for clear lung bases, hepatic steatosis. There is no evidence of portal hypertension and the bowel loops are within normal limits. She does have an umbilical hernia. Chest was unremarkable for a CT pulmonary angiogram revealing no pulmonary embolus. There is no pleural effusion bilaterally. LABORATORY DATA: I reviewed this patient's laboratory data. H and H showed 11.6 and 35, platelet count 257. Normal INR. Elevated D-dimer. Chemistry indicates increase in AST and ALT probably based on hepatic steatosis issues. Bilirubin is within normal limit. Serology is negative for influenza. Amylase and lipase have not been drawn. ASSESSMENT: This is a 32-year-old white female with chronic problem of abdominal pain, early satiety and nausea especially worse in the morning. She does not practice the antireflux precautions. In the past, she has been on Dexilant, which worked rather than pantoprazole. In discussion with the patient, she suggested an upper endoscopic evaluation which was scheduled tentatively for Tuesday. Based on clinical exam, patient does not present like a pancreatitis case. She is being treated for urinary tract infection by Dr. Carson. Medications at the current time point include losartan for blood pressure, metformin and insulin for diabetes, OxyContin for pain control, prednisone and pantoprazole and antibiotics in the form of ceftriaxone. Zofran she takes on at least every 4 and every 6 basis for consistent nausea. Donavon Watkins DO, PhD SHAHIDA
[2017-12-12] MEDS ORDERED: Propofol 10 mg/ml Inj (20 ML) ONE (08:50)
[2017-12-12] MEDS ORDERED: Albuterol HFA 90 mcg/actuation (8 g) ONE (08:53)
[2017-12-12] MEDS ORDERED: Sodium Chloride 0.9% 1,000 ML IV SCH (09:45)
[2017-12-12] MEDS: Pantoprazole 40 mg EC Tab PO SCH (10:36)
[2017-12-12] MEDS: Metoprolol Succinate 50 mg XL Tab PO SCH (10:36)
[2017-12-12] MEDS: cefTRIAXone 1 gm 1 GM/100 ML BAG IVPB SCH (10:37)
--- NOTE | 2017-12-12 13:42 | PN ---
SUBJECTIVE: The patient was seen and examined at bedside on the remote telemetry barrera. No acute events overnight. She remains afebrile, hemodynamically stable and with continued improvement in her diarrhea and mild improvement in her abdominal discomfort. She has been evaluated by Dr. Watkins of GI and is pending EGD later today. OBJECTIVE: VITAL SIGNS: Temperature 98.4, pulse 87, blood pressure 116/64, respiratory rate 20, oxygen saturation 97% on room air. GENERAL: Morbidly obese woman, lying in bed, in no apparent distress. HEENT: PERRL. EOMI. No scleral icterus. No conjunctival pallor. NECK: Supple. Full range of motion. No JVD. No bruits. LUNGS: Clear auscultation. CARDIOVASCULAR: Regular rate and rhythm. Normal S1 and S2. ABDOMEN: Obese. Normoactive bowel sounds. Soft, mild tenderness to palpation to epigastrium with voluntary guarding. No rigidity. No tympany. No distension. EXTREMITIES: No edema. NEUROLOGIC: Awake, alert and oriented x3. No focal motor deficits. LABORATORY DATA: CBC reviewed and unremarkable. CMP reviewed and largely unremarkable. Blood cultures were no growth to date. Urine cultures were E. coli and sensitivity noted. C. diff negative. ASSESSMENT: The patient is a 32 year old woman with a past medical history of sarcoidosis, hypertension, anxiety disorder, morbid obesity, IDDM and sciatica who presented for evaluation of a 3 day history of worsening left flank pain associated with nausea, vomiting, decreased p.o. intake, and dysuria and who was admitted for management of urinary tract infection. PLAN: 1. UTI. Urine cultures reviewed. Continue ceftriaxone 1 g IV daily to complete 5-day course (today is day #4 of antibiotics). 2. Diarrhea, improving. Input from Dr. Watkins noted and appreciated. The patient is scheduled for EGD later today. Of note, the patient does report continue gradual improvement in her diarrhea. 3. GERD. The patient continues to endorse mild epigastric tenderness. Continue Protonix 40 mg p.o. daily, pending results of EGD. 4. Insulin-dependent diabetes mellitus. Continue metformin 500 mg p.o. daily and Levemir 40 units SC q. pm. Continue medium dose insulin sliding scale for coverage. 5. Hypertension. Continue Losartan 50 mg p.o. daily and Toprol XL 50 mg p.o. daily. 6. Anxiety disorder. Continue Xanax 1 mg p.o. t.i.d., Cymbalta 60 mg p.o. b.i.d. 7. Sciatica. Continue oxycodone 20 mg p.o. every 6 hours p.r.n. pain. 8. Sarcoidosis. Continue Singulair 10 mg p.o. daily and Prednisone 5 mg p.o. daily. Continue supplement oxygen and bronchodilators as needed. 9. Prophylaxis. The patient remains on Protonix. DVT prophylaxis is not indicated as patient is ambulatory. CODE STATUS: Full code. Greg Carson MD MTDD
[2017-12-12] MEDS: oxyCODONE 20 mg Immediate Release Tab PO PRN ×2 (14:41→23:14)
[2017-12-12] MEDS: Insulin Detemir 100 units/ml Vial (Levemir) SC SCH (17:07)
[2017-12-13] MEDS ORDERED: oxyCODONE 20 mg Immediate Release Tab PO ONE (02:19)
[2017-12-13] MEDS: Sucralfate 1 gm/10 ml Oral Susp UD PO SCH ×2 (06:07→11:49)
[2017-12-13 06:30] LABS: BASO # 0.06 K/mm3 (0.0-2.0); BASO % 0.7 % (0.0-3.0); EOS # 0.5 (0.0-0.7); EOS % 5.1 % (1.5-5.0); GRAN # 4.4 (1.4-6.5); GRAN % 49.6 % (50.0-68.0); HEMOGLOBIN 12.9 g/dL (12.0-16.0); LYMPH # 3.2 (1.2-3.4); LYMPH % 35.7 % (22.0-35.0); MEAN CELL VOLUME 83.9 fl (80.0-105.0); MEAN CORPUSCULAR HEMOGLOBIN 27.4 pg (25.0-35.0); MEAN CORPUSCULAR HGB CONC 32.7 g/dl (31.0-37.0); MEAN PLATELET VOLUME 8.9 fl (7.0-11.0); MONO # 0.8 (0.1-0.6); MONO % 8.9 % (1.0-6.0); RBC 4.71 10^6/uL (3.5-6.1); RED CELL DISTRIBUTION WIDTH 14.1 % (11.5-14.5); WHITE BLOOD COUNT 8.9 10^3/ul (4.5-11.0)
[2017-12-13 07:07] LABS: ALB/GLOB RATIO 1.2 (1.1-1.8); ALT/SGPT 103 U/L (7-56); AST/SGOT 63 U/L (14-36); BLOOD UREA NITROGEN 10 mg/dL (7-21); CALCIUM 9.3 mg/dL (8.4-10.5); GFR AFRICAN-AMERICAN > 60; GFR NON-AFRICAN AMERICAN > 60
[2017-12-13] MEDS: Insulin Reg-MEDIUM-Coverage SC SCH ×2 (07:42→11:46)
[2017-12-13 08:36] VITALS: BP 136/90; RESP 16; TEMP 97.6; O2SAT 96
[2017-12-13] MEDS: oxyCODONE 20 mg Immediate Release Tab PO PRN (08:55)
--- NOTE | 2017-12-13 09:05 | PN ---
SUBJECTIVE: The patient was seen and examined at bedside on the general medical barrera. No acute events overnight. She remains afebrile, hemodynamically stable and is doing well s/p EGD which demonstrated gastritis and a hiatal hernia. This morning she states she feels okay overall and offers no complaints. PHYSICAL EXAMINATION VITAL SIGNS: Temperature 98.9, pulse 98, blood pressure 103/50, respiratory rate 20, oxygen saturation 95% on room air. GENERAL: Morbidly obese woman lying in bed in no apparent distress. HEENT: PERRL. EOMI. No scleral icterus. No conjunctival pallor. NECK: Supple with full range of motion. No JVD. No bruits. LUNGS: Clear to auscultation. CARDIOVASCULAR: Regular rate and rhythm. Normal S1 and S2. ABDOMEN: Obese, normoactive bowel sounds, soft, mild tenderness to palpation to epigastrium with voluntary guarding. No rigidity. No tympany. EXTREMITIES: No edema. NEUROLOGIC: Awake, alert and oriented x 3. No focal motor deficits. LABORATORY DATA: CBC reviewed and unremarkable. CMP reviewed and unremarkable. ASSESSMENT: The patient is a 32 year old woman with a past medical history of sarcoidosis, hypertension, anxiety disorder, morbid obesity, IDDM and sciatica who presented for evaluation of a 3 day history of worsening left flank pain associated with nausea, vomiting, decreased p.o. intake and dysuria and who was admitted for management of urinary tract infection. PLAN: 1. UTI, resolved. The patient has completed a 5 day course of Ceftriaxone 1 g IV daily with resolution of her urinary symptoms. 2. GERD. Input from Dr. Watkins noted and appreciated and EGD findings reviewed. We will change the patient's outpatient medications to Dexilant 60 mg p.o. b.i.d. and Carafate four times a day. She has again been counseled on dietary changes. 3. IDDM. Continue Metformin 500 mg p.o. daily and Levemir 40 units SC every evening. Continue medium dose ISS for coverage. 4. Hypertension. Continue Losartan 50 mg p.o. daily and Toprol XL 50 mg p.o. daily. 5. Anxiety disorder. Continue Xanax 1 mg p.o. t.i.d. and Cymbalta 60 mg p.o. b.i.d. 6. Sciatica. Continue Oxycodone 20 mg p.o. every 6 hours p.r.n. pain. 7. Sarcoidosis. Continue Singulair 10 mg p.o. daily and Prednisone 5 mg p.o. daily. Continue supplement oxygen and bronchodilators as needed. 8. Prophylaxis. The patient remains on Protonix thus GI prophylaxis is not indicated. DVT prophylaxis is not indicated as the patient is ambulatory. 9. Disposition. The patient will be discharged home today. CODE STATUS: Full code. Greg Carson MD MTDD
[2017-12-13] MEDS: Pantoprazole 40 mg EC Tab PO SCH (09:35)
[2017-12-13] MEDS: Metoprolol Succinate 50 mg XL Tab PO SCH (09:35)
--- NOTE | 2017-12-13 09:58 | PN ---
DATE: 12/13/2017 SUBJECTIVE: I saw Ms. Patel this morning. She is a 32-year-old white female admitted with complaints of abdominal pain with dysuria, urinary frequency, nausea. The patient has been treated for urinary tract infection by Dr. Carson with IV antibiotics. The CT of the abdomen and pelvis is noncontributory. Note that the patient has been treated for abdominal pain with oxycodone 20 mg every 6 hours at home. At bedside this morning, the patient still indicates significant degree of abdominal pain, especially in the epigastric area. PHYSICAL EXAMINATION: ABDOMEN: On examination, patient has a protuberant abdomen, still experiencing epigastric discomfort or some periumbilical discomfort. She related a breakthrough on her oxycodone pain medication. The patient had endoscopic procedure yesterday significant for gastroesophageal reflux. 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 She had hiatal hernia with ulcerations noted at the level of the Z line. She had several linear ulcerations also extending proximally from the Z line. OVERALL ASSESSMENT: This is a 32-year-old white female here with complaints of abdominal pain and urinary issues. The patient is currently on antibiotics as per Dr. Carson. Based on endoscopic findings yesterday, since the patient is breaking through on pantoprazole Carafate suspension was ordered. Note that insertion of the scope to the level of the proximal to mid jejunum revealed no gross evidence of Crohn's disease in the form of ulcerations or gross mucosal ulcerations. Multiple biopsies were taken to rule out inflammatory bowel in the small intestine. Note that, she has no CT findings of Crohn's in either the small bowel or colon. I reviewed the endoscopic findings with the patient at the bedside. She also was given a copy of the report, which was given yesterday. I emphasized antireflux precautions, also continuation of PPI therapy plus addition of Carafate suspension. At this point in time, I cannot clarify the etiology abdominal pain other than what I saw endoscopically. Note that, she has history of sarcoidosis; how extensive sarcoid infiltration in the liver is unclear at this point of time. This may be producing some degree of distention of the liver capsule and thus pain. Donavon Watkins DO, PhD SHAHIDA
[2017-12-13 12:51] VITALS: PULSE 86
== END 2017-12-13 13:01 | disposition home or self-care (01) | DRG 690 ==
LOC: ED 10:36 → ERH 14:28 → 3RNO 16:54
PROVIDERS: ADMIT Student in an Organized Health Care Education/Training Program; ATTEND Student in an Organized Health Care Education/Training Program
PROC: 0DB68ZX Excision of Stomach, Via Natural or Artificial Opening Endoscopic, Diagnostic (ICD-10-PCS; 2017-12-12)
PROC: 0DBA8ZX Excision of Jejunum, Via Natural or Artificial Opening Endoscopic, Diagnostic (ICD-10-PCS; 2017-12-12)
PROC: 0DB98ZX Excision of Duodenum, Via Natural or Artificial Opening Endoscopic, Diagnostic (ICD-10-PCS; principal; 2017-12-12 09:30)
DX: N39.0 Urinary tract infection, site not specified (principal); K22.10 Ulcer of esophagus without bleeding; Z68.42 Body mass index [BMI] 45.0-49.9, adult; K31.7 Polyp of stomach and duodenum; K44.9 Diaphragmatic hernia without obstruction or gangrene; K21.0 Gastro-esophageal reflux disease with esophagitis; I10 Essential (primary) hypertension; F41.0 Panic disorder [episodic paroxysmal anxiety]; M54.30 Sciatica, unspecified side; E11.9 Type 2 diabetes mellitus without complications; B96.20 Unspecified Escherichia coli [E. coli] as the cause of diseases classified elsewhere; D86.9 Sarcoidosis, unspecified; J44.9 Chronic obstructive pulmonary disease, unspecified; E66.01 Morbid (severe) obesity due to excess calories; F12.90 Cannabis use, unspecified, uncomplicated; R19.7 Diarrhea, unspecified; R68.81 Early satiety; Z79.4 Long term (current) use of insulin

== ENCOUNTER 2017-12-21 17:47 | Emergency (ER) | payer OTHER ==
[2017-12-21 17:59] VITALS: BMI 45.9
[2017-12-21] MEDS ORDERED: Sodium Chloride 0.9% 1,000 ML IV STA ×2 (18:13→21:41)
--- NOTE | 2017-12-21 18:20 | ED PDOC ---
Arrival/HPI - General Chief Complaint: GI Problem Time Seen by Provider: 12/21/17 18:02 Historian: Patient, Spouse - History of Present Illness Narrative History of Present Illness (Text): you were treated in the ED today for hx of sacroidosis, hypertension, anxiety, diabetes, sciatica and was recently discharged a week ago with urinary tract infection and nausea/vomiting with EGD done without significant findings to the mid-jejunum on 12/13/17 and now with persistent nausea/vomiting without bile or blood and with generalized abdomen pain but otherwise without any nausea/ vomiting/headache/dizziness/difficulty breathing/chest pain/abdomen pain/ numbness/tingling/loss of limb function/pain with urination/vaginal bleeding or discharge. refused sexual disease testing or treatment at this time. 12/21/17 18:17 Time/Duration: 24 hours Symptom Onset: Gradual Symptom Course: Unchanged, Intermittent Quality: Aching Severity Level: 3 Activities at Onset: Rest Context: Sitting Past Medical History - Infectious Disease Hx of Infectious Diseases: None - Tetanus Immunization Tetanus Immunization: Unknown - Cardiac Hx Cardiac Disorders: Yes Hx Hypertension: Yes - Pulmonary Hx Respiratory Disorders: Yes Hx Asthma: Yes Hx Chronic Obstructive Pulmonary Disease (COPD): Yes Other/Comment: chronic non-productive congh, sarcoidosis. + smoker - Neurological Hx Neurological Disorder: Yes Hx Migraine: Yes - HEENT Hx HEENT Disorder: No - Renal Hx Renal Disorder: No - Endocrine/Metabolic Hx Endocrine Disorders: Yes Hx Diabetes Mellitus Type 2: Yes - Hematological/Oncological Hx Blood Transfusions: No Hx Blood Transfusion Reaction: No - Integumentary Hx Dermatological Disorder: No - Musculoskeletal/Rheumatological Hx Musculoskeletal Disorders: No Hx Falls: No - Gastrointestinal Hx Gastrointestinal Disorders: No Hx Pancreatitis: Yes - Genitourinary/Gynecological Hx Genitourinary Disorders: No - Psychiatric Hx Psychophysiologic Disorder: Yes Hx Anxiety: Yes Hx Depression: Yes Hx Emotional Abuse: No Hx Panic Disorder: Yes Hx Physical Abuse: No Hx Substance Use: No - Surgical History Hx Cholecystectomy: Yes Other/Comment: multiple R foot sx. back sx - Anesthesia Hx Anesthesia Reactions: Yes (BURNING SENSATION IN ARM) Hx Malignant Hyperthermia: No - Suicidal Assessment Feels Threatened In Home Enviroment: No Family/Social History - Physician Review Nursing Documentation Reviewed: Yes Family/Social History: No Known Family HX Smoking Status: Former Smoker Hx Alcohol Use: Yes Hx Substance Use: No Substance used: CANNABIS Hx Substance Use Treatment: No Allergies/Home Meds Allergies/Adverse Reactions: Allergies lisinopril Allergy (Verified 12/08/17 10:49) RASH hydromorphone Adverse Reaction (Verified 12/08/17 10:49) NAUSEA Home Medications: Home Meds Medication Instructions Recorded Confirmed metFORMIN [glucOPHAGE] 1,000 mg PO DAILY 07/02/16 12/08/17 ALPRAZolam [Xanax] 1 mg PO HS 06/14/17 12/08/17 Benzonatate 200 mg PO DAILY 06/14/17 12/08/17 DULoxetine [Cymbalta] 60 mg PO DAILY 06/14/17 12/08/17 Insulin Glargine, Recombina 25 unit SC BID 06/14/17 12/08/17 [Lantus] Lidocaine 5% [Lidoderm] 1 applic TP DAILY 06/14/17 12/08/17 Losartan/Hydrochlorothiazide 1 tab PO DAILY 06/14/17 12/08/17 [Losartan-Hctz 50-12.5 mg Tab] Meloxicam [Mobic] 15 mg PO DAILY 06/14/17 12/08/17 Metoprolol Tartrate [Lopressor] 50 mg PO DAILY 06/14/17 12/08/17 Montelukast [Singulair] 10 mg PO DAILY 06/14/17 12/08/17 Pantoprazole [Protonix EC Tab] 40 mg PO DAILY 06/14/17 12/08/17 Prednisone 10 mg PO DAILY 06/14/17 12/08/17 Sumatriptan Succinate [Imitrex] 50 mg PO DAILY 06/14/17 12/08/17 oxyCODONE [oxyCODONE Immediate 20 mg PO PRN PRN 06/14/17 12/08/17 Release Tab] Albuterol HFA [Ventolin HFA 90 0.09 mg IH DAILY 12/08/17 12/08/17 mcg/actuation (8 g)] Budesonide/Formoterol Fumarate 0 gm IH DAILY 12/08/17 12/08/17 [Symbicort 160-4.5 Mcg Inhaler] Dulaglutide [Trulicity] 1.5 mg SC DAILY 12/08/17 12/08/17 Fluticasone Nasal [Flonase] 1 spr NS DAILY 12/08/17 12/08/17 Halcinonide 0.1% [Halog 0.1%] 0.05 gm TP DAILY 12/08/17 12/08/17 Ibuprofen/Famotidine [Duexis 1 tab PO DAILY 12/08/17 12/08/17 800-26.6 mg Tablet] Insulin Aspart, Recombinant 0 unit SC DAILY 12/08/17 12/08/17 [Novolog] Levocetirizine Dihydrochloride 5 mg PO DAILY 12/08/17 12/08/17 [Xyzal] Metformin ER [Glucophage XR] 850 mg PO DAILY 12/08/17 12/08/17 Ondansetron ODT [Zofran ODT] 4 mg PO PRN PRN 12/08/17 12/08/17 Pregabalin [Lyrica] 50 mg PO DAILY 12/08/17 12/08/17 cycloSPORINE [Restasis] 1 ea OP DAILY 12/08/17 12/08/17 Physical Exam Vital Signs Temp Pulse Resp BP Pulse Ox 12/21/17 18:04 98.2 F 110 H 24 163/93 H 99 Medical Decision Making ED Course and Treatment: you were treated in the ED today for hx of sacroidosis, hypertension, anxiety, diabetes, sciatica and was recently discharged a week ago with urinary tract infection and nausea/vomiting with EGD done without significant findings to the mid-jejunum on 12/13/17 and now with persistent nausea/vomiting without bile or blood and with generalized abdomen pain but otherwise without any nausea/ vomiting/headache/dizziness/difficulty breathing/chest pain/abdomen pain/ numbness/tingling/loss of limb function/pain with urination/vaginal bleeding or discharge. refused sexual disease testing or treatment at this time. You were otherwise breathing easily, smiling and laughing with your , good strength/sensation, walking easily, clear lungs, no abdomen tenderness, no fever temp 98.2, stable heart rate improved 86, stable breathing rate 24, excellent oxygen level 99% room air, elevated blood pressure 163/93 which we recommend repeat in 2-3 days primary care office to determine further treatment , you have blood tests no infection count 10, stable blood level hemoglobin 13/ platelets 416, stable chemistry, lipase normal 96, anion gap elevated 21 with iv fluids and repeat 18, lactic acid 4.7 with iv fluids given and repeat 2.5 improved, urine test no acute sign of infection, urine test negative, radiology ct abdomen/pelvis no acute findings, intravenous fluids, zofran, zosyn , toradol, observation done in the ED with improvement, had a long discussion with Dr. Greg Carson who we reviewed your labs and your improved lactic acid to 2.[address] scan and he stated can be discharged home/counselled to drink lots of fluids and advance diet as tolerated for further hydration and thus discharged home with with planned followup with Dr. Carson tomorrow review symptoms/further care and repeat lab tests as directed. 1. Recommend zofran as directed for nausea/vomiting. 2. Recommend motrin as directed for pain. 3. Recommend follow-up primary care tomrrow to review symptoms, referral to gastroenterology to review symptoms/fatty liver to ensure no complications, referral to pulmonary clinic for lung nodule to ensure no complications/cancer development, referral to gynecology for ovary hypodensity to ensure no complications/cancer development, referral to surgery for tiny umbilical hernia to ensure no complications, referral to vascular surgery for circumaortic left renal vein to ensure further care, referral to urology for protein in urine to ensure no complications. 4. If any worsening pain, fever, chills, nausea, vomiting, difficulty breathing, numbness, loss of limb function , pain with urination or any medical condition then return to the ED 12/21/17 18:23 12/21/17 18:52 Code Sepsis called. lactic acid 4.7 to 2.5 dehydration and no sign of infection. pt improved. comfortable. 12/21/17 23:23 Reassessment Condition: Re-examined, Improved - Lab Interpretations Lab Results: 12/21/17 18:20 12/21/17 21:40 Lab Results 12/21/17 21:40: Sodium 141, Chloride 107, Potassium 4.4, Carbon Dioxide 20 L, Anion Gap 18, BUN 12, Creatinine 0.9, Est GFR ( Amer) > 60, Est GFR (Non- Af Amer) > 60, Random Glucose 157 H, Calcium 9.2, Total Bilirubin 0.4, AST 23, ALT 35, Alkaline Phosphatase 101, Total Protein 6.8, Albumin 3.8, Globulin 3.1, Albumin/Globulin Ratio 1.2 12/21/17 21:40: pO2 148 H, VBG pH 7.36, VBG pCO2 40.0, VBG HCO3 22.6, VBG Total CO2 23.8, VBG O2 Sat (Calc) 100.1 H, VBG Base Excess -2.7 L, VBG Potassium 4.3, Sodium 137.0, Chloride 108.0 H, Glucose 165 H, Lactate 2.5 H, FiO2 21.0, Venous Blood Potassium 4.3 12/21/17 19:41: POC Glucose (mg/dL) 187 H 12/21/17 19:00: Urine Color Yellow, Urine Appearance Clear, Urine pH 6.0, Ur Specific [place] >= 1.030, Urine Protein 100 H, Urine Glucose (UA) Negative, Urine Ketones Trace H, Urine Blood Negative, Urine Nitrate Negative, Urine Bilirubin Negative, Urine Urobilinogen 0.2, Ur Leukocyte Esterase Negative, Urine RBC Negative, Urine WBC 5 - 10, Ur Epithelial Cells 3 - 4, Urine Bacteria Few 12/21/17 18:20: Beta HCG, Quant < 2.39 12/21/17 18:20: pO2 153 H, VBG pH 7.44 H, VBG pCO2 31.0 L, VBG HCO3 21.1, VBG Total CO2 22.1, VBG O2 Sat (Calc) 99.9 H, VBG Base Excess -2.1 L, VBG Potassium 4.0, Sodium 138.0, Chloride 106.0, Glucose 246 H, Lactate 4.7 H*, FiO2 21.0, Venous Blood Potassium 4.0 12/21/17 18:20: Sodium 140, Chloride 104, Potassium 3.9, Carbon Dioxide 19 L, Anion Gap 21 H, BUN 10, Creatinine 0.8, Est GFR ( Amer) > 60, Est GFR ( Non-Af Amer) > 60, Random Glucose 226 H, Calcium 9.8, Total Bilirubin 0.4, AST 30, ALT 36, Alkaline Phosphatase 118, Total Protein 7.9, Albumin 4.5, Globulin 3.4, Albumin/Globulin Ratio 1.3, Lipase 96 12/21/17 18:20: PT 11.2, INR 0.98, APTT 29.1 12/21/17 18:20: WBC 10.0, RBC 4.94, Hgb 13.7, Hct 40.8, MCV 82.6, MCH 27.7, MCHC 33.6, RDW 13.9, Plt Count 416, MPV 8.9, Gran % 59.3, Lymph % (Auto) 29.0, [place] % (Auto) 9.5 H, Eos % (Auto) 1.8, Baso % (Auto) 0.4, Gran # 5.89, Lymph # ( Auto) 2.9, [place] # (Auto) 1.0 H, Eos # (Auto) 0.2, Baso # (Auto) 0.04 I have reviewed the lab results: Yes - RAD Interpretation Radiology Orders: 12/21/17 19:55 ABD & PELVIS IV CONTRAST ONLY [CT] Stat Shell Sieve Operator: Radiologist - Medication Orders Current Medication Orders: Discontinued Medications Sodium Chloride (Sodium Chloride 0.9%) 1,000 mls @ 1,000 mls/hr IV .Q1H STA Stop: 12/21/17 19:12 Last Admin: 12/21/17 18:37 Dose: 1,000 mls/hr eMAR Start Stop Document 12/21/17 18:37 [facility] (Rec: 12/21/17 18:37 [facility] [id number]) Intravenous Solution Start Date 12/21/17 Start Time 18:37 End Date 12/21/17 End time 19:37 Total Infusion Time 60 Piperacillin Sod/Tazobactam Sod (Zosyn 4.5 Gm In Ns 100ml) 4.5 gm in 100 mls @ 200 mls/hr IVPB STAT STA PRN Reason: Protocol Stop: 12/21/17 19:27 Last Admin: 12/21/17 19:38 Dose: 200 mls/hr eMAR Start Stop Document 12/21/17 19:38 RG (Rec: 12/21/17 19:41 RG [id number]) Intravenous Solution Start Date 12/21/17 Start Time 19:38 Sodium Chloride (Sodium Chloride 0.9%) 1,000 mls @ 999 mls/hr IV .Q1H1M STA Stop: 12/21/17 22:41 Last Admin: 12/21/17 21:45 Dose: 999 mls/hr eMAR Start Stop Document 12/21/17 21:45 RG (Rec: 12/21/17 22:06 RG [id number]) Intravenous Solution Start Date 12/21/17 Start Time 21:45 Ketorolac Tromethamine (Toradol) 30 mg IVP STAT STA Stop: 12/21/17 18:14 Last Admin: 12/21/17 19:15 Dose: 30 mg MAR Pain Assessment Document 12/21/17 19:15 RG (Rec: 12/21/17 19:35 [id number] Pain Reassessment Is this a pain reassessment? Yes Sleep Is patient sleeping during reassessment? No Presence of Pain Presence of Pain Yes Location Pain Location Body Plisse Machine Operator Abdomen IVP Administration Document 12/21/17 19:15 RG (Rec: 12/21/17 19:35 [id number] Charges for Administration # of IVP Administrations 1 Re-Assess: MAR Pain Assessment Document 12/21/17 21:17 RG (Rec: 12/21/17 21:17 [id number] Pain Reassessment Is this a pain reassessment? Yes Sleep Is patient sleeping during reassessment? No Presence of Pain Presence of Pain Yes Metoclopramide HCl (Reglan) 10 mg IVP STAT STA Stop: 12/21/17 18:22 Last Admin: 12/21/17 19:16 Dose: 10 mg IVP Administration Document 12/21/17 19:16 RG (Rec: 12/21/17 19:35 [id number][facility] Charges for Administration # of IVP Administrations 1 Morphine Sulfate (Morphine) 4 mg IVP STAT STA Stop: 12/21/17 21:05 Last Admin: 12/21/17 21:22 Dose: 4 mg MAR Pain Assessment Document 12/21/17 21:22 RG (Rec: 12/21/17 21:24 [id number][facility] Pain Reassessment Is this a pain reassessment? Yes Sleep Is patient sleeping during reassessment? No Presence of Pain Presence of Pain Yes Pain Scale Used Pain Scale Used Numeric Location Pain Location Body Plisse Machine Operator Abdomen Description Pain Behavior Facial Grimacing IVP Administration Document 12/21/17 21:22 RG (Rec: 12/21/17 21:24 [id number]) Charges for Administration # of IVP Administrations 1 Ondansetron HCl (Zofran Inj) 4 mg IVP STAT STA Stop: 12/21/17 18:14 Last Admin: 12/21/17 18:36 Dose: 4 mg IVP Administration Document 12/21/17 18:36 [facility] (Rec: 12/21/17 18:36 [facility] [id number]) Charges for Administration # of IVP Administrations 1 Pantoprazole Sodium (Protonix Inj) 40 mg IVP STAT STA Stop: 12/21/17 18:14 Last Admin: 12/21/17 18:36 Dose: 40 mg IVP Administration Document 12/21/17 18:36 [facility] (Rec: 12/21/17 18:36 [facility] [id number]) Charges for Administration # of IVP Administrations 1 Disposition/Present on Arrival - Present on Arrival Any Indicators Present on Arrival: No History of DVT/PE: No History of Uncontrolled Diabetes: No Urinary Catheter: No History of Decub. Ulcer: No History Surgical Site Infection Following: None - Disposition Have Diagnosis and Disposition been Completed?: Yes Diagnosis: Abdominal pain, Dehydration Disposition: HOME/ ROUTINE Disposition Time: 23:20 Patient Plan: Discharge Patient Problems: Current Active Problems Problem Status Onset Abdominal pain Acute Dehydration Acute Condition: IMPROVED Discharge Instructions (ExitCare): Acute Abdomen (Belly Pain), Adult (DC) Additional Instructions: you were treated in the ED today for hx of sacroidosis, hypertension, anxiety, diabetes, sciatica and was recently discharged a week ago with urinary tract infection and nausea/vomiting with EGD done without significant findings to the mid-jejunum on 12/13/17 and now with persistent nausea/vomiting without bile or blood and with generalized abdomen pain but otherwise without any nausea/ vomiting/headache/dizziness/difficulty breathing/chest pain/abdomen pain/ numbness/tingling/loss of limb function/pain with urination/vaginal bleeding or discharge. refused sexual disease testing or treatment at this time. You were otherwise breathing easily, smiling and laughing with your , good strength/sensation, walking easily, clear lungs, no abdomen tenderness, no fever temp 98.2, stable heart rate improved 86, stable breathing rate 24, excellent oxygen level 99% room air, elevated blood pressure 163/93 which we recommend repeat in 2-3 days primary care office to determine further treatment , you have blood tests no infection count 10, stable blood level hemoglobin 13/ platelets 416, stable chemistry, lipase normal 96, anion gap elevated 21 with iv fluids and repeat 18, lactic acid 4.7 with iv fluids given and repeat 2.5 improved, urine test no acute sign of infection, urine test negative, radiology ct abdomen/pelvis no acute findings, intravenous fluids, zofran, zosyn , toradol, observation done in the ED with improvement, had a long discussion with Dr. Greg Carson who we reviewed your labs and your improved lactic acid to 2.[address] scan and he stated can be discharged home/counselled to drink lots of fluids and advance diet as tolerated for further hydration and thus discharged home with with planned followup with Dr. Carson tomorrow review symptoms/further care and repeat lab tests as directed. 1. Recommend zofran as directed for nausea/vomiting. 2. Recommend motrin as directed for pain. 3. Recommend follow-up primary care tomrrow to review symptoms, referral to gastroenterology to review symptoms/fatty liver to ensure no complications, referral to pulmonary clinic for lung nodule to ensure no complications/cancer development, referral to gynecology for ovary hypodensity to ensure no complications/cancer development, referral to surgery for tiny umbilical hernia to ensure no complications, referral to vascular surgery for circumaortic left renal vein to ensure further care, referral to urology for protein in urine to ensure no complications. 4. If any worsening pain, fever, chills, nausea, vomiting, difficulty breathing, numbness, loss of limb function , pain with urination or any medical condition then return to the ED. Prescriptions: Ondansetron ODT [Zofran ODT] 4 mg PO Q8 PRN 5 Days #20 odt PRN Reason: Nausea/Vomiting Referrals: Yamileth NUNEZ,Greg Bloom MD [Primary Care Provider] - Follow up with primary Forms: [employer] (Jordanian)
[2017-12-21 18:43] LABS: BASO # 0.04 K/mm3 (0.0-2.0); BASO % 0.4 % (0.0-3.0); EOS # 0.2 (0.0-0.7); EOS % 1.8 % (1.5-5.0); GRAN # 5.89 (1.4-6.5); GRAN % 59.3 % (50.0-68.0); HEMOGLOBIN 13.7 g/dL (12.0-16.0); LYMPH # 2.9 (1.2-3.4); MEAN CELL VOLUME 82.6 fl (80.0-105.0); MEAN CORPUSCULAR HEMOGLOBIN 27.7 pg (25.0-35.0); MEAN CORPUSCULAR HGB CONC 33.6 g/dl (31.0-37.0); MEAN PLATELET VOLUME 8.9 fl (7.0-11.0); MONO % 9.5 % (1.0-6.0); RBC 4.94 10^6/uL (3.5-6.1); RED CELL DISTRIBUTION WIDTH 13.9 % (11.5-14.5)
[2017-12-21 18:44] LABS: VENOUS BLOOD GAS BASE EXCESS -2.1 mmol/L (0.0-2.0); VENOUS BLOOD GAS PO2 153 mm/Hg (30-55); VENOUS BLOOD PH 7.44 (7.32-7.43)
[2017-12-21 18:53] LABS: INR 0.98 (0.93-1.08); PROTHROMBIN TIME 11.2 SECONDS (9.4-12.5)
[2017-12-21 18:54] LABS: PARTIAL THROMBOPLASTIN TIME 29.1 Seconds (25.1-36.5)
[2017-12-21] MEDS ORDERED: Piperacill/Tazo 4.5gm in NS 4.5 GM/100 ML BAG IVPB STA (18:58)
[2017-12-21 19:17] LABS: URINE BILIRUBIN NEGATIVE (NEGATIVE); URINE BLOOD NEGATIVE (NEGATIVE); URINE GLUCOSE (UA) NEGATIVE (NEGATIVE); URINE LEUKOCYTE ESTERASE NEGATIVE Leu/uL (NEGATIVE); URINE PROTEIN 100 mg/dL (<30 mg/dL); URINE UROBILINOGEN 0.2 E.U./dL (<1 E.U./dL)
[2017-12-21 19:21] LABS: URINE APPEARANCE CLEAR (CLEAR); URINE COLOR YELLOW (YELLOW)
[2017-12-21 19:25] LABS: URINE BACTERIA FEW (NEG); URINE RBC NEGATIVE /hpf (0-2)
[2017-12-21 19:26] LABS: ALB/GLOB RATIO 1.3 (1.1-1.8); ALBUMIN 4.5 g/dL (3.0-4.8); ALT/SGPT 36 U/L (7-56); AST/SGOT 30 U/L (14-36); BLOOD UREA NITROGEN 10 mg/dL (7-21); CALCIUM 9.8 mg/dL (8.4-10.5); GFR AFRICAN-AMERICAN > 60; GFR NON-AFRICAN AMERICAN > 60; LIPASE 96 U/L (23-300)
[2017-12-21] MEDS ORDERED: Iohexol 350 MG/100 ML VIAL ONE (20:02)
[2017-12-21] MEDS ORDERED: Morphine 4 mg/ml ISec IVP STA (21:04)
--- NOTE | 2017-12-21 21:20 | CT ---
EXAM: CT Abdomen and Pelvis With Intravenous Contrast CLINICAL HISTORY: 32 years old, female; Signs and symptoms; Vomiting and other: Diarrhea; Prior surgery; Surgery date: 6+ months; Surgery type: Gb; Additional info: 32yof with abdomen pain TECHNIQUE: Axial computed tomography images of the abdomen and pelvis with intravenous contrast. All CT scans at this facility use one or more dose reduction techniques, viz.: automated exposure control; ma/kV adjustment per patient size (including targeted exams where dose is matched to indication; i.e. head); or iterative reconstruction technique. Coronal and sagittal reformatted images were created and reviewed. CONTRAST: 94 mL of OMNI 350 administered intravenously. COMPARISON: CT - ABD PELVIS W/O PO OR IV CONT 2017-12-08 13:29 FINDINGS: Limitations: Motion artifact - mild. Lung bases: 0.2 cm subpleural nodule vs focal scarring left lower lobe, stable. ABDOMEN: Liver: Fatty infiltration. Gallbladder and bile ducts: Cholecystectomy. No significant ductal dilation. Pancreas: No ductal dilation. No mass. Spleen: No splenomegaly. Adrenals: No mass. Kidneys and ureters: No mass. No hydronephrosis. Stomach and bowel: Segmental areas of probable underdistention of distal descending, sigmoid colon. No definite mural thickening. No obstruction. PELVIS: Appendix: Normal caliber. No inflammation. Bladder: Unremarkable. Reproductive: 1.6 x 1.4 x 1.4 cm peripherally enhancing hypodensity with crenulated margins within RIGHT ovary. ABDOMEN and PELVIS: Intraperitoneal space: No significant fluid collection. No free air. Bones/joints: Early degenerative changes of spine. No acute fracture. Soft tissues: Tiny umbilical hernia containing fat. Vasculature: Circumaortic LEFT renal vein. No aneurysm. Lymph nodes: No pathologically enlarged lymph nodes. IMPRESSION: 1. Involuting or ruptured RIGHT ovarian follicle/cyst. 2. Pulmonary nodule. For low-risk patients, no follow-up is necessary. For high-risk patients (smoking history or other known risk factors) an optional CT at 12 months could be performed. 3. Incidental/non-acute findings are described above.
[2017-12-21 22:14] LABS: VENOUS BLOOD GAS BASE EXCESS -2.7 mmol/L (0.0-2.0); VENOUS BLOOD GAS PO2 148 mm/Hg (30-55); VENOUS BLOOD PH 7.36 (7.32-7.43)
[2017-12-21 22:24] LABS: ALB/GLOB RATIO 1.2 (1.1-1.8); ALBUMIN 3.8 g/dL (3.0-4.8); ALT/SGPT 35 U/L (7-56); AST/SGOT 23 U/L (14-36); BLOOD UREA NITROGEN 12 mg/dL (7-21); CALCIUM 9.2 mg/dL (8.4-10.5); GFR AFRICAN-AMERICAN > 60; GFR NON-AFRICAN AMERICAN > 60
[2017-12-21 23:15] VITALS: RESP 18
[2017-12-22 01:46] VITALS: BP 125/76; TEMP 98.4; O2SAT 95
[2017-12-22 01:48] VITALS: PULSE 85
== END 2017-12-21 23:30 | disposition home or self-care (01) ==
LOC: ED 17:47
DX: R10.9 Unspecified abdominal pain (principal)
CPT/HCPCS: 74177; 80053; 81001; 82803; 82948; 83690; 84702; 85025; 85610; 85730; 87040; 87086; 96361; 96374; 96375; 99285; C9113; J1885; J2270; J2405; J2543; J2765; J7040; Q9967

== ENCOUNTER 2018-03-26 12:21 | Emergency (ER) | payer OTHER ==
[2018-03-26 12:22] VITALS: BMI 45.9
[2018-03-26 12:37] VITALS: RESP 19
[2018-03-26] MEDS ORDERED: Sodium Chloride 0.9% 2,000 ML IV STA (12:58)
[2018-03-26 13:26] LABS: URINE BILIRUBIN NEGATIVE (NEGATIVE); URINE BLOOD MODERATE (NEGATIVE); URINE GLUCOSE (UA) >=1000 mg/dL (NEGATIVE); URINE LEUKOCYTE ESTERASE SMALL Leu/uL (NEGATIVE); URINE PROTEIN NEGATIVE mg/dL (<30 mg/dL); URINE UROBILINOGEN 0.2 E.U./dL (<1 E.U./dL)
[2018-03-26 13:27] LABS: URINE APPEARANCE SL CLOUDY (CLEAR); URINE COLOR YELLOW (YELLOW)
--- NOTE | 2018-03-26 13:32 | ED PDOC ---
Arrival/HPI - General Chief Complaint: Shortness Of Breath Time Seen by Provider: 03/26/18 12:36 Historian: Patient - History of Present Illness Narrative History of Present Illness (Text): 03/26/18 13:04 A 32 year old female, whose past medical history includes sacroidosis, hypertension, anxiety, diabetes, sciatica, pancreatitis, and cholecystectomy, presents to the emergency department complaining of bladder/abdominal pain. Patient reports feeling "drunk but not drunk" and "here but not here". Mentions also experiencing numbness throughout her extremities. Patient denies any other complaints at this time. PMD: Dr. Carson Past Medical History - Provider Review Nursing Documentation Reviewed: Yes - Infectious Disease Hx of Infectious Diseases: None - Tetanus Immunization Tetanus Immunization: Unknown - Cardiac Hx Cardiac Disorders: Yes Hx Hypertension: Yes - Pulmonary Hx Respiratory Disorders: Yes Hx Asthma: Yes Hx Chronic Obstructive Pulmonary Disease (COPD): Yes Other/Comment: chronic non-productive congh, sarcoidosis. + smoker - Neurological Hx Neurological Disorder: Yes Hx Migraine: Yes - HEENT Hx HEENT Disorder: No - Renal Hx Renal Disorder: No - Endocrine/Metabolic Hx Endocrine Disorders: Yes Hx Diabetes Mellitus Type 2: Yes - Hematological/Oncological Hx Blood Transfusions: No Hx Blood Transfusion Reaction: No - Integumentary Hx Dermatological Disorder: No - Musculoskeletal/Rheumatological Hx Musculoskeletal Disorders: No Hx Falls: No - Gastrointestinal Hx Gastrointestinal Disorders: No Hx Pancreatitis: Yes - Genitourinary/Gynecological Hx Genitourinary Disorders: No - Psychiatric Hx Psychophysiologic Disorder: Yes Hx Anxiety: Yes Hx Depression: Yes Hx Emotional Abuse: No Hx Panic Disorder: Yes Hx Physical Abuse: No Hx Substance Use: No - Surgical History Hx Cholecystectomy: Yes Other/Comment: multiple R foot sx. back sx - Anesthesia Hx Anesthesia Reactions: Yes (BURNING SENSATION IN ARM) Hx Malignant Hyperthermia: No - Suicidal Assessment Feels Threatened In Home Enviroment: No Family/Social History - Physician Review Nursing Documentation Reviewed: Yes Family/Social History: No Known Family HX Smoking Status: Former Smoker Hx Alcohol Use: Yes Hx Substance Use: No Substance used: CANNABIS Hx Substance Use Treatment: No Allergies/Home Meds Allergies/Adverse Reactions: Allergies lisinopril Allergy (Verified 12/08/17 10:49) RASH hydromorphone Adverse Reaction (Verified 12/08/17 10:49) NAUSEA Home Medications: Home Meds Medication Instructions Recorded Confirmed metFORMIN [glucOPHAGE] 1,000 mg PO DAILY 07/02/16 12/22/17 ALPRAZolam [Xanax] 1 mg PO QID 06/14/17 12/22/17 Benzonatate 200 mg PO DAILY 06/14/17 12/22/17 DULoxetine [Cymbalta] 60 mg PO DAILY 06/14/17 12/22/17 Insulin Glargine, Recombina 25 unit SC BID 06/14/17 12/22/17 [Lantus] Lidocaine 5% [Lidoderm] 1 applic TP DAILY 06/14/17 12/22/17 Losartan/Hydrochlorothiazide 1 tab PO DAILY 06/14/17 12/22/17 [Losartan-Hctz 50-12.5 mg Tab] Meloxicam [Mobic] 15 mg PO DAILY 06/14/17 12/22/17 Metoprolol Tartrate [Lopressor] 50 mg PO DAILY 06/14/17 12/22/17 Montelukast [Singulair] 10 mg PO DAILY 06/14/17 12/22/17 Pantoprazole [Protonix EC Tab] 40 mg PO DAILY 06/14/17 12/22/17 Prednisone 10 mg PO DAILY 06/14/17 12/22/17 Sumatriptan Succinate [Imitrex] 50 mg PO DAILY 06/14/17 12/22/17 oxyCODONE [oxyCODONE Immediate 20 mg PO PRN PRN 06/14/17 12/22/17 Release Tab] Albuterol HFA [Ventolin HFA 90 0.09 mg IH DAILY 12/08/17 12/22/17 mcg/actuation (8 g)] Budesonide/Formoterol Fumarate 0 gm IH DAILY 12/08/17 12/22/17 [Symbicort 160-4.5 Mcg Inhaler] Dulaglutide [Trulicity] 1.5 mg SC DAILY 12/08/17 12/22/17 Fluticasone Nasal [Flonase] 1 spr NS DAILY 12/08/17 12/22/17 Halcinonide 0.1% [Halog 0.1%] 0.05 gm TP DAILY 12/08/17 12/22/17 Ibuprofen/Famotidine [Duexis 1 tab PO DAILY 12/08/17 12/22/17 800-26.6 mg Tablet] Insulin Aspart, Recombinant 0 unit SC DAILY 12/08/17 12/22/17 [Novolog] Levocetirizine Dihydrochloride 5 mg PO DAILY 12/08/17 12/22/17 [Xyzal] MetFORMIN ER [Glucophage XR] 850 mg PO DAILY 12/08/17 12/22/17 Ondansetron ODT [Zofran ODT] 4 mg PO PRN PRN 12/08/17 12/22/17 Pregabalin [Lyrica] 50 mg PO DAILY 12/08/17 12/22/17 cycloSPORINE [Restasis] 1 ea OP DAILY 12/08/17 12/22/17 Review of Systems - Physician Review All systems were reviewed & negative as marked: Yes - Review of Systems Constitutional: Other (weakness) Gastrointestinal: Abdominal Pain Genitourinary Female: Other (bladder pain) Neurological: Other (numbness throught extremities) Physical Exam - Physical Exam Narrative Physical Exam (Text): Gen: VS reviewed, alert, well devloped, well nourished, nontoxic, mild distress. ENT: normal pharynx Eye: EOMI, PERRL Neck: no JVD, supple, no adenopathy CV: regular rate, regular rhythm, no rubs, no murmur, no gallops, S1, S2, pulses equal and strong Pulm: no distress, lear to auscultation, no wheeze, no rhonchi, breath sounds equal, no rales Abd: soft, nontender, no guarding, no rebound, no rigidity, normal bowel sounds Ext: no edema Skin: good color, no rash, no cyanosis Psych: responds appropriately to questions, flat affect Neuro: oriented x 3, CN2-12 intact grossly, motor intact, sensation intact Vital Signs Reviewed: Yes Vital Signs Temp Pulse Resp BP Pulse Ox 03/26/18 17:36 98 F 85 19 145/53 L 98 03/26/18 15:52 83 03/26/18 13:02 85 03/26/18 12:31 98.6 F 89 19 159/99 H 99 Temperature: Afebrile Blood Pressure: Hypertensive Pulse: Regular Respiratory Rate: Normal Appearance: Positive for: Well-Appearing, Non-Toxic, Comfortable Pain Distress: None Mental Status: Positive for: Alert and Oriented X 3 Finger Stick Blood Glucose: 327 Medical Decision Making ED Course and Treatment: 03/26/18 13:10 Impression: 32 year old female with bladder/abdominal pain, and weakness. Physical exam shows flat affect; rest of examination is normal. Plan: -- EKG -- Head CT -- Labs -- Urine Culture -- Urinalysis -- IV Fluids -- Venous Blood Gas -- Fingerstick Blood Sugar -- Reassess and disposition Prior Visits: Notes and results from previous visits were reviewed. Patient was last seen here in the emergency room on 12/21/2017 for persistent nausea/vomiting without bile/blood. Patient was discharged home. Progress Notes: 03/26/18 12:37 EKG: Ordered, reviewed, and independently interpreted the EKG. Rate : 82 BPM Rhythm : NSR Interpretation : Normal access, normal QRS, no acute ST- and T- wave abnormalities. Comparison : No previous EKG for comparison. 03/26/2018 15:[address] IMPRESSION: No acute intracranial abnormalities. no significant findings to account for the clinical presentation. No significant interval change compared to the prior examination(s). Dictator: Javier Schilling MD 03/26/18 16:00 went to re-eval the patient after all diag tests back, patient reports that she now has a sensation of dizziness as if the room is spinning. will admit to the hospital for further evaluation rule out vertebrobasilar insifficiency. the patient is currently in tears from the physical complaint of vertigo. symptoms have not improved despite multiple medication interventions. 03/26/18 16:36 - Lab Interpretations Lab Results: 03/26/18 13:00 03/26/18 13:00 Lab Results 03/26/18 14:32: POC Glucose (mg/dL) 209 H 03/26/18 13:14: Urine Color Yellow, Urine Appearance Sl cloudy, Urine pH 6.0, Ur Specific [place] 1.020, Urine Protein Negative, Urine Glucose (UA) >=1000, Urine Ketones Negative, Urine Blood Moderate H, Urine Nitrate Negative, Urine Bilirubin Negative, Urine Urobilinogen 0.2, Ur Leukocyte Esterase Small H, Urine RBC 1 - 3, Urine WBC 2 - 5, Ur Epithelial Cells 6 - 8, Urine Bacteria Mod 03/26/18 13:14: Urine Opiates Screen Negative, Urine Methadone Screen Negative, Ur Barbiturates Screen Negative, Ur Phencyclidine Scrn Negative, Ur Amphetamines Screen Negative, U Benzodiazepines Scrn Negative, U Oth Cocaine Metabols Negative, U Cannabinoids Screen Negative 03/26/18 13:00: WBC 7.9 D, RBC 4.34, Hgb 11.8 L, Hct 35.5 L, MCV 81.8, MCH 27.2 , MCHC 33.2, RDW 13.7, Plt Count 305, MPV 8.8, Gran % 58.1, Lymph % (Auto) 24.7 , [place] % (Auto) 6.6 H, Eos % (Auto) 10.0 H, Baso % (Auto) 0.6, Gran # 4.61, Lymph # (Auto) 2.0, [place] # (Auto) 0.5, Eos # (Auto) 0.8 H, Baso # (Auto) 0.05 03/26/18 13:00: Sodium 138, Chloride 105, Potassium 4.2, Carbon Dioxide 22, Anion Gap 16, BUN 14, Creatinine 0.6 L, Est GFR ( Amer) > 60, Est GFR ( Non-Af Amer) > 60, Random Glucose 299 H, Calcium 8.6, Magnesium 1.6 L, Total Bilirubin 0.4, AST 25, ALT 33, Alkaline Phosphatase 99, Total Protein 6.6, Albumin 3.4, Globulin 3.1, Albumin/Globulin Ratio 1.1 03/26/18 13:00: pO2 91 H, VBG pH 7.39, VBG pCO2 40.0, VBG HCO3 24.2, VBG Total CO2 25.4, VBG O2 Sat (Calc) 99.2 H, VBG Base Excess -0.7 L, VBG Potassium 4.0, Sodium 137.0, Chloride 106.0, Glucose 322 H, Lactate 2.3 H, FiO2 21.0, Venous Blood Potassium 4.0 03/26/18 12:40: POC Glucose (mg/dL) 327 H I have reviewed the lab results: Yes - RAD Interpretation Radiology Orders: 03/26/18 13:00 HEAD W/O CONTRAST [CT] Stat - Medication Orders Current Medication Orders: Discontinued Medications Acetaminophen (Tylenol 325mg Tab) 975 mg PO STAT STA Stop: 03/26/18 14:39 Last Admin: 03/26/18 15:21 Dose: 975 mg MAR Pain/Vitals Document 03/26/18 15:21 GMI (Rec: 03/26/18 15:22 GMI [id number]) Pain Reassessment Is This A Pain ReAssessment? Yes Sleep Is patient sleeping during reassessment? No Re-Assess: MAR Pain/Vitals Document 03/26/18 16:21 GMI (Rec: 03/26/18 17:51 GMI [id number]) Pain Reassessment Is This A Pain ReAssessment? Yes Sleep Is patient sleeping during reassessment? No Presence of Pain Presence of Pain No Sodium Chloride (Sodium Chloride 0.9%) 2,000 mls @ 999 mls/hr IV .Q2H1M STA Stop: 03/26/18 14:58 Last Admin: 03/26/18 13:24 Dose: 999 mls/hr eMAR Start Stop Document 03/26/18 13:24 GMI (Rec: 03/26/18 13:24 GMI [id number]) Intravenous Solution Start Date 03/26/18 Start Time 13:24 End Date 03/26/18 End time 14:30 Total Infusion Time 66 Magnesium Oxide (Mag-Ox) 400 mg PO STAT STA Stop: 03/26/18 15:21 Last Admin: 03/26/18 16:10 Dose: 400 mg Meclizine HCl (Antivert) 25 mg PO STAT STA Stop: 03/26/18 16:22 Last Admin: 03/26/18 16:41 Dose: 25 mg Ondansetron HCl (Zofran Inj) 4 mg IVP STAT STA Stop: 03/26/18 15:36 Last Admin: 03/26/18 15:37 Dose: 4 mg IVP Administration Document 03/26/18 15:37 GMI (Rec: 03/26/18 15:37 GMI [id number]) Charges for Administration # of IVP Administrations 1 Ondansetron HCl (Zofran Inj) 4 mg IVP STAT STA Stop: 03/26/18 15:37 Last Admin: 03/26/18 15:39 Dose: - Scribe Statement The provider has reviewed the documentation as recorded by the Mary Jane Melton Provider Scribe Provider Scribe Attestation: All medical record entries made by the Susanibkieran were at my direction and personally dictated by me. I have reviewed the chart and agree that the record accurately reflects my personal performance of the history, physical exam, medical decision making, and the department course for this patient. I have also personally directed, reviewed, and agree with the discharge instructions and disposition. Disposition/Present on Arrival - Present on Arrival Any Indicators Present on Arrival: No History of DVT/PE: No History of Uncontrolled Diabetes: No Urinary Catheter: No History of Decub. Ulcer: No History Surgical Site Infection Following: None - Disposition Have Diagnosis and Disposition been Completed?: Yes Diagnosis: Vertigo Disposition: HOME/ ROUTINE Disposition Time: 18:16 Patient Plan: Discharge, Observation Patient Problems: Current Active Problems Problem Status Onset Vertigo Acute Condition: IMPROVED
[2018-03-26 13:33] LABS: URINE BACTERIA MOD (NEG)
[2018-03-26 13:46] LABS: BARBITURATES, UR NEGATIVE (NEGATIVE); BENZODIAZEPINES, UR NEGATIVE (NEGATIVE); OPIATES, UR NEGATIVE (NEGATIVE); PHENCYCLIDINE, UR NEGATIVE (NEGATIVE)
[2018-03-26 13:48] LABS: BASO # 0.05 K/mm3 (0.0-2.0); BASO % 0.6 % (0.0-3.0); EOS # 0.8 (0.0-0.7); GRAN # 4.61 (1.4-6.5); GRAN % 58.1 % (50.0-68.0); HEMOGLOBIN 11.8 g/dL (12.0-16.0); LYMPH % 24.7 % (22.0-35.0); MEAN CELL VOLUME 81.8 fl (80.0-105.0); MEAN CORPUSCULAR HEMOGLOBIN 27.2 pg (25.0-35.0); MEAN CORPUSCULAR HGB CONC 33.2 g/dl (31.0-37.0); MEAN PLATELET VOLUME 8.8 fl (7.0-11.0); MONO # 0.5 (0.1-0.6); MONO % 6.6 % (1.0-6.0); RBC 4.34 10^6/uL (3.5-6.1); RED CELL DISTRIBUTION WIDTH 13.7 % (11.5-14.5); WHITE BLOOD COUNT 7.9 10^3/ul (4.5-11.0)
[2018-03-26 13:56] LABS: VENOUS BLOOD GAS BASE EXCESS -0.7 mmol/L (0.0-2.0); VENOUS BLOOD GAS PO2 91 mm/Hg (30-55); VENOUS BLOOD PH 7.39 (7.32-7.43)
[2018-03-26 14:00] LABS: ALB/GLOB RATIO 1.1 (1.1-1.8); ALBUMIN 3.4 g/dL (3.0-4.8); ALT/SGPT 33 U/L (7-56); AST/SGOT 25 U/L (14-36); BLOOD UREA NITROGEN 14 mg/dL (7-21); CALCIUM 8.6 mg/dL (8.4-10.5); GFR AFRICAN-AMERICAN > 60; GFR NON-AFRICAN AMERICAN > 60
[2018-03-26] MEDS ORDERED: Magnesium Oxide 400 mg Tab UD PO STA (15:20)
--- NOTE | 2018-03-26 15:20 | CT ---
Date of service: 03/26/2018 PROCEDURE: CT HEAD WITHOUT CONTRAST. HISTORY: numbness COMPARISON: 09/09/2015. TECHNIQUE: Axial computed tomography images were obtained through the head/brain without intravenous contrast. Radiation dose: Total exam DLP = 804.25 mGy-cm. This CT exam was performed using one or more of the following dose reduction techniques: Automated exposure control, adjustment of the mA and/or kV according to patient size, and/or use of iterative reconstruction technique. FINDINGS: HEMORRHAGE: No intracranial hemorrhage. BRAIN: No mass effect or edema. No atrophy or chronic microvascular ischemic changes. VENTRICLES: Unremarkable. No hydrocephalus. CALVARIUM: Unremarkable. PARANASAL SINUSES: Unremarkable as visualized. No significant inflammatory changes. MASTOID AIR CELLS: Unremarkable as visualized. No inflammatory changes. OTHER FINDINGS: None. IMPRESSION: No acute intracranial abnormalities. No significant findings to account for the clinical presentation. No significant interval change compared to the prior examination(s).
[2018-03-26 17:37] VITALS: PULSE 85; TEMP 98
[2018-03-26 18:33] VITALS: BP 126/53; O2SAT 99
--- NOTE | 2018-03-26 20:10 | CARD ---
APPROVED REPORT Date of service: 03/26/2018 EKG Measurement Heart [id number] <Conclusion> Normal sinus rhythm Normal ECG
== END 2018-03-26 18:31 | disposition home or self-care (01) ==
LOC: ED 12:21 → UNDOADMOB 16:37 → ERH 16:37
DX: R42 Dizziness and giddiness (principal); I10 Essential (primary) hypertension; D86.9 Sarcoidosis, unspecified; E11.9 Type 2 diabetes mellitus without complications; Z87.891 Personal history of nicotine dependence
CPT/HCPCS: 70450; 80053; 80324; 80345; 80346; 80349; 80353; 80358; 80361; 81001; 82803; 82948; 83735; 83992; 85025; 87086; 93005; 96361; 96374; 99285; J2405; J7030

== ENCOUNTER 2018-04-22 11:53 | Emergency (ER) | payer OTHER ==
[2018-04-22 11:54] VITALS: BMI 45.9
[2018-04-22 12:16] VITALS: RESP 18
[2018-04-22] MEDS ORDERED: Sodium Chloride 0.9% 1,000 ML IV STA (12:25)
[2018-04-22 12:35] LABS: URINE BILIRUBIN NEGATIVE (NEGATIVE); URINE BLOOD TRACE-INTACT (NEGATIVE); URINE GLUCOSE (UA) NEGATIVE (NEGATIVE); URINE LEUKOCYTE ESTERASE TRACE Leu/uL (NEGATIVE); URINE PROTEIN NEGATIVE mg/dL (<30 mg/dL); URINE UROBILINOGEN 0.2 E.U./dL (<1 E.U./dL)
[2018-04-22 12:38] LABS: URINE APPEARANCE SLIGHT-CLOUDY (CLEAR); URINE COLOR YELLOW (YELLOW)
[2018-04-22 12:39] LABS: HCG,QUALITATIVE URINE NEGATIVE (NEGATIVE)
[2018-04-22 12:51] LABS: BASO # 0.04 K/mm3 (0.0-2.0); BASO % 0.5 % (0.0-3.0); EOS # 0.5 (0.0-0.7); EOS % 5.6 % (1.5-5.0); GRAN # 4.71 (1.4-6.5); GRAN % 59.1 % (50.0-68.0); HEMOGLOBIN 13.6 g/dL (12.0-16.0); LYMPH # 2.3 (1.2-3.4); LYMPH % 29.3 % (22.0-35.0); MEAN CELL VOLUME 82.4 fl (80.0-105.0); MEAN CORPUSCULAR HEMOGLOBIN 27.5 pg (25.0-35.0); MEAN CORPUSCULAR HGB CONC 33.4 g/dl (31.0-37.0); MEAN PLATELET VOLUME 8.7 fl (7.0-11.0); MONO # 0.4 (0.1-0.6); MONO % 5.5 % (1.0-6.0); RBC 4.94 10^6/uL (3.5-6.1); RED CELL DISTRIBUTION WIDTH 13.2 % (11.5-14.5)
[2018-04-22 12:59] LABS: INR 0.97; PARTIAL THROMBOPLASTIN TIME 30.5 Seconds (25.1-36.5); PROTHROMBIN TIME 11.2 SECONDS (9.4-12.5)
--- NOTE | 2018-04-22 13:09 | ED PDOC ---
Arrival/HPI - General Chief Complaint: Back Pain Time Seen by Provider: 04/22/18 12:00 Historian: Patient - History of Present Illness Narrative History of Present Illness (Text): 04/22/18 13:01 32 year old female, whose past medical history includes sacroidosis, hypertension, anxiety, diabetes, sciatica, pancreatitis, and cholecystectomy, presents to the emergency department with back pain, and excessive menstruation/ bleeding, since 2 weeks prior. Patient states she has been having extremely long periods, with excessive bleeding. Patient also informs random bleeding, after her period finished. Patient states she feels random hot flashes. Patient also informs of burning upon urination. Patient denies any fever, chills, headache, dizziness, sore throat, cough, chest pain, shortness of breath , abdominal pain, nausea, vomiting, diarrhea, neck pain, or any other complaint. Time/Duration: Prior to Arrival, > week (menstral bleeding for about 2 weeks) Symptom Course: Unchanged Past Medical History - Provider Review Nursing Documentation Reviewed: Yes - Infectious Disease Hx of Infectious Diseases: None - Tetanus Immunization Tetanus Immunization: Unknown - Cardiac Hx Cardiac Disorders: Yes Hx Hypertension: Yes - Pulmonary Hx Respiratory Disorders: Yes Hx Asthma: Yes Hx Chronic Obstructive Pulmonary Disease (COPD): Yes Other/Comment: chronic non-productive congh, sarcoidosis. + smoker - Neurological Hx Neurological Disorder: Yes Hx Migraine: Yes - HEENT Hx HEENT Disorder: No - Renal Hx Renal Disorder: No - Endocrine/Metabolic Hx Endocrine Disorders: Yes Hx Diabetes Mellitus Type 2: Yes - Hematological/Oncological Hx Blood Disorders: No - Integumentary Hx Dermatological Disorder: No - Musculoskeletal/Rheumatological Hx Musculoskeletal Disorders: No - Gastrointestinal Hx Gastrointestinal Disorders: No Hx Pancreatitis: Yes - Genitourinary/Gynecological Hx Genitourinary Disorders: No - Psychiatric Hx Psychophysiologic Disorder: Yes Hx Anxiety: Yes Hx Depression: Yes Hx Panic Disorder: Yes Hx Substance Use: No - Surgical History Hx Cholecystectomy: Yes Other/Comment: multiple R foot sx. back sx - Anesthesia Hx Anesthesia Reactions: Yes (BURNING SENSATION IN ARM) Hx Malignant Hyperthermia: No - Suicidal Assessment Feels Threatened In Home Enviroment: No Family/Social History - Physician Review Nursing Documentation Reviewed: Yes Family/Social History: No Known Family HX Smoking Status: Light Smoker < 10 Cigarettes Daily Hx Alcohol Use: Yes Frequency of alcohol use: Socially Hx Substance Use: No Substance used: CANNABIS Hx Substance Use Treatment: No Allergies/Home Meds Allergies/Adverse Reactions: Allergies lisinopril Allergy (Verified 04/22/18 12:16) RASH hydromorphone Adverse Reaction (Verified 04/22/18 12:16) NAUSEA Home Medications: Home Meds Medication Instructions Recorded Confirmed Unobtainable 04/22/18 04/22/18 Review of Systems - Physician Review All systems were reviewed & negative as marked: Yes - Review of Systems Constitutional: Normal. absent: Fevers, Night Sweats Eyes: Normal ENT: Normal Respiratory: Normal. absent: SOB, Cough Cardiovascular: Normal. absent: Chest Pain Gastrointestinal: Normal. absent: Abdominal Pain, Diarrhea, Nausea, Vomiting Genitourinary Female: Dysuria, Vaginal Bleeding Musculoskeletal: Normal. absent: Neck Pain Skin: Normal Neurological: Normal. absent: Headache, Dizziness Endocrine: Normal Hemo/Lymphatic: Normal Psychiatric: Normal Physical Exam Vital Signs Reviewed: Yes Vital Signs Temp Pulse Resp BP Pulse Ox 04/22/18 14:39 98.2 F 84 18 133/84 98 04/22/18 14:32 98.2 F 80 18 133/84 98 04/22/18 12:13 98.1 F 102 H 18 126/87 99 04/22/18 11:54 98.1 F 102 H 18 126/87 99 Temperature: Afebrile Blood Pressure: Normal Pulse: Regular Respiratory Rate: Normal Appearance: Positive for: Well-Appearing, Non-Toxic, Comfortable Pain Distress: None Mental Status: Positive for: Alert and Oriented X 3 - Systems Exam Head: Present: Atraumatic, Normocephalic Pupils: Present: PERRL Extroacular Muscles: Present: EOMI Conjunctiva: Present: Normal Mouth: Present: Moist Mucous Membranes Neck: Present: Normal Range of Motion Respiratory/Chest: Present: Clear to Auscultation, Good Air Exchange. No: Respiratory Distress, Accessory Muscle Use Cardiovascular: Present: Regular Rate and Rhythm, Normal S1, S2. No: Murmurs Abdomen: No: Tenderness, Distention, Peritoneal Signs Back: Present: Normal Inspection Upper Extremity: Present: Normal Inspection. No: Cyanosis, Edema Lower Extremity: Present: Normal Inspection. No: Edema Neurological: Present: GCS=15, CN II-XII Intact, Speech Normal Skin: Present: Warm, Dry, Normal Color. No: Rashes Psychiatric: Present: Alert, Oriented x 3, Normal Insight, Normal Concentration Medical Decision Making ED Course and Treatment: 04/22/18 13:11 Impression: 32 year old female, presents to the emergency department with back pain and excessive periods. ro fibroid uti ovarian cyst. Plan: -- Tylenol -- Labs -- US -- Urinalysis -- Reassess and disposition Prior Visits: Notes and results from previous visits were reviewed. Progress Notes: 04/22/18 15:29 pt observed comfortable on cell phone in nad. pain improved. labs neg. urine neg. us shows fibroid. pt states has ob appt on tuesday h/h stable. no tachycardia. declines pelvic. - Lab Interpretations Lab Results: 04/22/18 12:40 04/22/18 12:40 Lab Results 04/22/18 12:40: Sodium 138, Potassium 4.4, Chloride 100, Carbon Dioxide 26, Anion Gap 16, BUN 16, Creatinine 0.7, Est GFR ( Amer) > 60, Est GFR (Non- Af Amer) > 60, Random Glucose 272 H, Calcium 9.4, Magnesium 1.7, Total Bilirubin 0.3, AST 17, ALT 18, Alkaline Phosphatase 142 H D, Total Protein 7.8, Albumin 4.1, Globulin 3.7, Albumin/Globulin Ratio 1.1, Lipase 152 04/22/18 12:40: PT 11.2, INR 0.97, APTT 30.5 04/22/18 12:40: WBC 8.0, RBC 4.94, Hgb 13.6, Hct 40.7, MCV 82.4, MCH 27.5, MCHC 33.4, RDW 13.2, Plt Count 360, MPV 8.7, Gran % 59.1, Lymph % (Auto) 29.3, [place] % (Auto) 5.5, Eos % (Auto) 5.6 H, Baso % (Auto) 0.5, Gran # 4.71, Lymph # (Auto ) 2.3, [place] # (Auto) 0.4, Eos # (Auto) 0.5, Baso # (Auto) 0.04 04/22/18 12:20: Urine Color Yellow, Urine Appearance Slight-cloudy, Urine pH 6.0 , Ur Specific [place] 1.025, Urine Protein Negative, Urine Glucose (UA) Negative , Urine Ketones Negative, Urine Blood Trace-intact H, Urine Nitrate Negative, Urine Bilirubin Negative, Urine Urobilinogen 0.2, Ur Leukocyte Esterase Trace H , Urine RBC 0 - 2, Urine WBC 0 - 2, Ur Epithelial Cells 6 - 8, Urine HCG, Qual Negative - RAD Interpretation Radiology Orders: 04/22/18 12:26 TRANSVAGINAL [US] Stat - Medication Orders Current Medication Orders: Discontinued Medications Acetaminophen (Tylenol 325mg Tab) 975 mg PO STAT STA Stop: 04/22/18 12:26 Last Admin: 04/22/18 12:39 Dose: 975 mg MAR Pain/Vitals Document 04/22/18 12:39 SRE (Rec: 04/22/18 12:40 SRE [id number]) Pain Reassessment Is This A Pain ReAssessment? Yes Sleep Is patient sleeping during reassessment? No Presence of Pain Presence of Pain Yes Pain Scale Used Pain Scale Used Numeric Location Pain Location Body Site Back Description Intermittent Intensity 10 Scale Used Numeric Sodium Chloride (Sodium Chloride 0.9%) 1,000 mls @ 1,000 mls/hr IV .Q1H STA Stop: 04/22/18 13:24 Last Admin: 04/22/18 12:38 Dose: 1,000 mls/hr eMAR Start Stop Document 04/22/18 12:38 SRE (Rec: 04/22/18 12:39 SRE [id number]) Intravenous Solution Start Date 04/22/18 Start Time 12:39 End Date 04/22/18 End time 13:30 Total Infusion Time 51 - Scribe Statement The provider has reviewed the documentation as recorded by the Scribkieran Oconnor All medical record entries made by the Scribe were at my direction and personally dictated by me. I have reviewed the chart and agree that the record accurately reflects my personal performance of the history, physical exam, medical decision making, and the department course for this patient. I have also personally directed, reviewed, and agree with the discharge instructions and disposition. Disposition/Present on Arrival - Present on Arrival Any Indicators Present on Arrival: No History of DVT/PE: No History of Uncontrolled Diabetes: No Urinary Catheter: No History of Decub. Ulcer: No History Surgical Site Infection Following: None - Disposition Have Diagnosis and Disposition been Completed?: Yes Diagnosis: Fibroid, Vaginal bleeding Disposition: HOME/ ROUTINE Disposition Time: 14:26 Condition: STABLE Discharge Instructions (ExitCare): Uterine Fibroids, Acute Abdomen (Belly Pain) Additional Instructions: follow up with your doctor/or clinic. return to er with worsening symptoms. please discuss all results with your doctor. your hemoglobin today was 13.6. Referrals: [facility] [place] - Follow up with primary [facility] [Outside] - [facility] with [facility] [Outside] - Follow up with primary Forms: [employer] ([place]), WORK NOTE
[2018-04-22 13:30] LABS: ALB/GLOB RATIO 1.1 (1.1-1.8); ALBUMIN 4.1 g/dL (3.0-4.8); ALT/SGPT 18 U/L (7-56); AST/SGOT 17 U/L (14-36); BLOOD UREA NITROGEN 16 mg/dL (7-21); CALCIUM 9.4 mg/dL (8.4-10.5); GFR NON-AFRICAN AMERICAN > 60; LIPASE 152 U/L (23-300)
[2018-04-22 13:31] LABS: URINE RBC 0 - 2 /hpf (0-2); URINE WBC 0 - 2 /hpf (0-6)
--- NOTE | 2018-04-22 14:18 | US ---
Date of service: 04/22/2018 HISTORY: Pelvic pain, heavy vaginal bleeding COMPARISON: None available. TECHNIQUE: Transvaginal pelvic ultrasound was performed. FINDINGS: UTERUS: Measures 5.3 x 3.2 x 3.5 cm. Anteverted and normal in size. There is a 1.0 x 0.9 x 0.8 cm mildly hyperechoic lesion in the anterior wall of the midbody of the uterus. ENDOMETRIUM: Measures 2.0 mm in diameter. Normal in appearance. CERVIX: No cervical abnormality identified. RIGHT OVARY: Measures 2.6 x 2.0 x 2.0 cm. No solid mass. Normal flow. LEFT OVARY: Measures 1.8 x 1.7 x 1.5 cm. No solid mass. Normal flow. FREE FLUID: No significant free fluid noted. OTHER FINDINGS: None. IMPRESSION: 1.0 x 0.9 x 0.8 cm intramural anterior wall lesion likely represents a fibroid. Normal central endometrial echo complex.
[2018-04-22 14:37] VITALS: BP 133/84; TEMP 98.2; O2SAT 98
[2018-04-22 14:40] VITALS: PULSE 84
== END 2018-04-22 14:39 | disposition home or self-care (01) ==
LOC: ED 11:53
DX: N93.9 Abnormal uterine and vaginal bleeding, unspecified (principal); D25.9 Leiomyoma of uterus, unspecified; I10 Essential (primary) hypertension; E11.9 Type 2 diabetes mellitus without complications; F17.210 Nicotine dependence, cigarettes, uncomplicated
CPT/HCPCS: 76830; 80053; 81001; 83690; 83735; 84703; 85025; 85610; 85730; 87086; 96360; 99283; J7030

== ENCOUNTER 2018-06-23 15:28 | Emergency (ER) | payer OTHER ==
[2018-06-23 15:42] VITALS: BMI 42.5
[2018-06-23] MEDS ORDERED: Sodium Chloride 0.9% 1,000 ML IV SCH (16:00)
--- NOTE | 2018-06-23 16:07 | ED PDOC ---
Arrival/HPI - General Chief Complaint: Chest Pain Time Seen by Provider: 06/23/18 15:31 Historian: Patient - History of Present Illness Narrative History of Present Illness (Text): 06/23/18 15:54 A 33 year old female, whose past medical history includes sarcoidosis, hyperlipidemia, anxiety disorder, depression, diabetes, sciatica, pancreatitis, and cholecystectomy, presents to the emergency department complaining of chest pain since a few days ago. Patient reports feeling associated flu like symptoms, lightheadedness, nausea, mild fever and chills. Patient reports going to her primary care doctor 3 days ago who diagnosed her with bronchitis and prescribed her Augmentin. Patient reports she is also taking metoprolol, zofran, dexilant, humalog, and lantus. Patient denies any shortness of breath, diarrhea, vomiting, urinary symptoms, back pain, neck pain, headache, or any other complaints. PMD: Dr. Carson Time/Duration: Other (a few days ago) Symptom Onset: Gradual Symptom Course: Unchanged Activities at Onset: Light Context: Home Past Medical History - Travel History Have you recently traveled outside [place] w/in the past 3 mons?: Yes - Infectious Disease Hx of Infectious Diseases: None - Tetanus Immunization Tetanus Immunization: Unknown - Reproductive Menopause: No - Cardiac Hx Cardiac Disorders: Yes Hx Hypertension: Yes - Pulmonary Hx Respiratory Disorders: Yes Hx Asthma: Yes Hx Chronic Obstructive Pulmonary Disease (COPD): Yes Other/Comment: chronic non-productive congh, sarcoidosis. + smoker - Neurological Hx Neurological Disorder: Yes Hx Migraine: Yes - HEENT Hx HEENT Disorder: No - Renal Hx Renal Disorder: No - Endocrine/Metabolic Hx Endocrine Disorders: Yes Hx Diabetes Mellitus Type 2: Yes - Hematological/Oncological Hx Blood Disorders: No - Integumentary Hx Dermatological Disorder: No - Musculoskeletal/Rheumatological Hx Musculoskeletal Disorders: No - Gastrointestinal Hx Gastrointestinal Disorders: Yes Hx Pancreatitis: Yes - Genitourinary/Gynecological Hx Genitourinary Disorders: No - Psychiatric Hx Psychophysiologic Disorder: Yes Hx Anxiety: Yes Hx Depression: Yes Hx Panic Disorder: Yes Hx Substance Use: No - Surgical History Hx Cholecystectomy: Yes Hx Orthopedic Surgery: Yes Other/Comment: multiple R foot sx. back sx - Anesthesia Hx Anesthesia: Yes Hx Anesthesia Reactions: Yes (BURNING SENSATION IN ARM) Hx Malignant Hyperthermia: No - Suicidal Assessment Feels Threatened In Home Enviroment: No Family/Social History - Physician Review Nursing Documentation Reviewed: Yes Family/Social History: Unknown Family HX Smoking Status: Light Smoker < 10 Cigarettes Daily Hx Alcohol Use: Yes Hx Substance Use: No Substance used: CANNABIS Hx Substance Use Treatment: No Allergies/Home Meds Allergies/Adverse Reactions: Allergies lisinopril Allergy (Verified 04/22/18 12:16) RASH hydromorphone Adverse Reaction (Verified 04/22/18 12:16) NAUSEA Home Medications: Home Meds Medication Instructions Recorded Confirmed Unobtainable 04/22/18 04/22/18 Review of Systems - Physician Review All systems were reviewed & negative as marked: Yes - Review of Systems Constitutional: Fevers, Night Sweats Respiratory: absent: SOB Cardiovascular: Chest Pain Gastrointestinal: Nausea. absent: Diarrhea, Vomiting Musculoskeletal: absent: Back Pain, Neck Pain Neurological: Dizziness (+lightheadedness). absent: Headache Physical Exam Vital Signs Reviewed: Yes Temperature: Afebrile Blood Pressure: Normal Pulse: Tachycardic Respiratory Rate: Normal Appearance: Positive for: Well-Appearing, Non-Toxic, Comfortable Pain Distress: None Mental Status: Positive for: Alert and Oriented X 3 - Systems Exam Head: Present: Atraumatic, Normocephalic Pupils: Present: PERRL Extroacular Muscles: Present: EOMI Conjunctiva: Present: Normal Mouth: Present: Moist Mucous Membranes Neck: Present: Normal Range of Motion. No: Meningeal Signs, MIDLINE TENDERNESS Respiratory/Chest: Present: Clear to Auscultation, Good Air Exchange. No: Respiratory Distress, Accessory Muscle Use Cardiovascular: Present: Regular Rate and Rhythm, Normal S1, S2. No: Murmurs Abdomen: No: Tenderness, Distention, Peritoneal Signs Back: Present: Normal Inspection Upper Extremity: Present: Normal Inspection. No: Cyanosis, Edema Lower Extremity: Present: Normal Inspection. No: Edema Neurological: Present: GCS=15, CN II-XII Intact, Speech Normal, Motor Func Grossly Intact, Normal Sensory Function, Normal Cerebellar Funct, Gait Normal Skin: Present: Warm, Dry, Normal Color. No: Rashes Psychiatric: Present: Alert, Oriented x 3, Normal Insight, Normal Concentration, Normal Affect Medical Decision Making ED Course and Treatment: 06/23/18 15:54 Impression: 33 year old female presenting to the emergency room complaining of chest pain, cough. CP likely not cardiac in nature, sharp stabbing, without sob or hx of blood clots. No pleuritic chest pain. Pt has recently been treated w/ augmentin for bronchitis w/ out much improvement. Given recent hx of abx without improvement as well as viral URI type symptoms will seek imaging and labs. Plan: -- EKG -- Labs -- CBC -- Chest X-ray -- Toradol -- IV fluids -- Influenza A B Test -- Reassess and disposition Prior Visits: Notes and results from previous visits were reviewed. Patient was last seen in the emergency department on 04/22/18 for back pain and excessive menstruation and was discharged when symptoms improved. Progress Notes: 19:45 labs largely unremarkable. Pt given fluids and meclizine with some improvement. 06/23/18 20:45 PT notes that her dizziness has greatly improved, however she feels like if she went outside she might fall due to diffuse weakness. full 5/5 stength in all extremities w/ normal neuro exam and w/ out cerebellar signs. Given feeling lightheaded will seek obs for further eval. Appreciate consult w/ Dr. Presley Carson: to obs to his service. Endorsed pending CT. Pt agreeable and in NAD. - Scribe Statement The provider has reviewed the documentation as recorded by the Scribkieran Lawrence All medical record entries made by the Scribe were at my direction and personally dictated by me. I have reviewed the chart and agree that the record accurately reflects my personal performance of the history, physical exam, medical decision making, and the department course for this patient. I have also personally directed, reviewed, and agree with the discharge instructions and disposition. Disposition/Present on Arrival - Present on Arrival Any Indicators Present on Arrival: No History of DVT/PE: No History of Uncontrolled Diabetes: No Urinary Catheter: No History of Decub. Ulcer: No History Surgical Site Infection Following: None - Disposition Have Diagnosis and Disposition been Completed?: Yes Diagnosis: Viral syndrome, BPV (benign positional vertigo) Disposition Time: 20:40 Patient Problems: Current Active Problems Problem Status Onset BPV (benign positional vertigo) Acute Viral syndrome Acute Condition: GOOD Forms: [employer] ([place])
[2018-06-23 17:28] LABS: BASO # 0.04 K/mm3 (0.0-2.0); BASO % 0.5 % (0.0-3.0); EOS # 0.3 (0.0-0.7); EOS % 4.5 % (1.5-5.0); GRAN # 4.46 (1.4-6.5); GRAN % 58.8 % (50.0-68.0); LYMPH # 2.2 (1.2-3.4); LYMPH % 29.1 % (22.0-35.0); MEAN CELL VOLUME 83.2 fl (80.0-105.0); MEAN CORPUSCULAR HEMOGLOBIN 27.6 pg (25.0-35.0); MEAN CORPUSCULAR HGB CONC 33.2 g/dl (31.0-37.0); MEAN PLATELET VOLUME 8.8 fl (7.0-11.0); MONO # 0.5 (0.1-0.6); MONO % 7.1 % (1.0-6.0); RBC 5.07 10^6/uL (3.5-6.1); RED CELL DISTRIBUTION WIDTH 13.5 % (11.5-14.5); WHITE BLOOD COUNT 7.6 10^3/uL (4.5-11.0)
[2018-06-23 17:39] LABS: ALB/GLOB RATIO 1.1 (1.1-1.8); ALBUMIN 3.9 g/dL (3.0-4.8); ALT/SGPT 56 U/L (7-56); AST/SGOT 87 U/L (14-36); BLOOD UREA NITROGEN 15 mg/dL (7-21); CALCIUM 8.9 mg/dL (8.4-10.5); GFR NON-AFRICAN AMERICAN > 60
[2018-06-23 17:50] LABS: B-TYPE NATRIURETIC PEPTIDE 99.2 pg/mL (0-450); TROPONIN I < 0.01 ng/mL
[2018-06-23 18:33] VITALS: RESP 18
[2018-06-23 22:50] VITALS: BP 112/71; PULSE 90; TEMP 98.2; O2SAT 95
[2018-06-23 23:02] LABS: URINE APPEARANCE CLEAR (CLEAR); URINE BILIRUBIN NEGATIVE (NEGATIVE); URINE BLOOD NEGATIVE (NEGATIVE); URINE COLOR YELLOW (YELLOW); URINE GLUCOSE (UA) NEGATIVE (NEGATIVE); URINE LEUKOCYTE ESTERASE SMALL Leu/uL (NEGATIVE); URINE PROTEIN TRACE mg/dL (<30 mg/dL); URINE UROBILINOGEN 0.2 E.U./dL (<1 E.U./dL)
[2018-06-23 23:05] LABS: URINE BACTERIA TRACE (NEG); URINE EPITHELIAL CELLS 0 - 2 /hpf (0-5); URINE RBC NEGATIVE /hpf (0-2); URINE WBC 0 - 2 /hpf (0-6)
--- NOTE | 2018-06-24 05:27 | CT ---
Date of service: 06/23/2018 PROCEDURE: CT HEAD WITHOUT CONTRAST. HISTORY: Dizziness COMPARISON: 03/26/2018. TECHNIQUE: Axial computed tomography images were obtained through the head/brain without intravenous contrast. Radiation dose: Total exam DLP = 1130.9 mGy-cm. This CT exam was performed using one or more of the following dose reduction techniques: Automated exposure control, adjustment of the mA and/or kV according to patient size, and/or use of iterative reconstruction technique. FINDINGS: HEMORRHAGE: No intracranial hemorrhage. BRAIN: There are mild chronic microangiopathic changes. There is no mass, mass effect or abnormal extra-axial fluid collection. There is no territorial infarction. The midline sagittal structures are normal. VENTRICLES: The ventricles are normal in size, shape and configuration. CALVARIUM: There is no calvarial fracture or extracranial soft tissue swelling. PARANASAL SINUSES: There is a large retention cyst/polyp in the right maxillary sinus, mild mucosal thickening in the ethmoid air cells and small retention cyst/polyp in the left maxillary sinus. MASTOID AIR CELLS: Predominantly clear. OTHER FINDINGS: None. IMPRESSION: No acute intracranial abnormality. A preliminary report was provided by [employer].
--- NOTE | 2018-06-24 05:59 | RAD ---
HISTORY: Shortness of breath COMPARISON: 12/08/2017. TECHNIQUE: Chest PA and lateral FINDINGS: LINES AND TUBES: None. LUNG AND PLEURA: The lungs are well inflated and clear. No pleural effusion or pneumothorax. HEART AND MEDIASTINUM: The heart is not enlarged. No aortic atherosclerotic calcification present. The hilar and mediastinal contours are within normal limits. SKELETAL STRUCTURES: The bony structures are within normal limits for the patient's age. VISUALIZED UPPER ABDOMEN: Normal. OTHER FINDINGS: None. IMPRESSION: No active pulmonary disease.
--- NOTE | 2018-06-24 10:17 | CARD ---
APPROVED REPORT Date of service: 06/23/2018 EKG Measurement Heart [id number] <Conclusion> Sinus tachycardia Mild NSSTW changes
== END 2018-06-23 23:55 | disposition left against medical advice (07) ==
LOC: ED 15:28 → ERH 20:36 → UNDOADMOB 20:36 → ERH 21:37 → ED 23:55
DX: B34.9 Viral infection, unspecified (principal); H81.10 Benign paroxysmal vertigo, unspecified ear; I10 Essential (primary) hypertension; E78.5 Hyperlipidemia, unspecified; F17.210 Nicotine dependence, cigarettes, uncomplicated
CPT/HCPCS: 70450; 71046; 80053; 81001; 83690; 83735; 83880; 84484; 85025; 87086; 87804; 93005; 96374; 96375; 99284; J1885; J2405; J7030

== ENCOUNTER 2018-07-29 12:19 | Emergency (ER) | payer OTHER ==
[2018-07-29 12:23] VITALS: BMI 43.0
[2018-07-29] MEDS ORDERED: Atrop/Hyosc/Scopal/PB Elixir (120 ml) PO STA (13:18)
[2018-07-29] MEDS ORDERED: Sodium Chloride 0.9% 1,000 ML IV STA (13:18)
[2018-07-29] MEDS ORDERED: Alum-Mag Hydrox-Simethicone Susp (30 mL) PO STA (13:18)
[2018-07-29] MEDS ORDERED: Iohexol 350 MG/100 ML VIAL ONE (13:45)
[2018-07-29 13:49] LABS: URINE BILIRUBIN NEGATIVE (NEGATIVE); URINE BLOOD NEGATIVE (NEGATIVE); URINE GLUCOSE (UA) >=1000 mg/dL (NEGATIVE); URINE LEUKOCYTE ESTERASE NEGATIVE Leu/uL (NEGATIVE); URINE PROTEIN NEGATIVE mg/dL (<30 mg/dL); URINE UROBILINOGEN 0.2 E.U./dL (<1 E.U./dL)
[2018-07-29 13:50] LABS: URINE APPEARANCE CLEAR (CLEAR); URINE COLOR YELLOW (YELLOW)
[2018-07-29 14:01] LABS: BASO # 0.04 K/mm3 (0.0-2.0); BASO % 0.5 % (0.0-3.0); EOS # 0.4 (0.0-0.7); EOS % 5.4 % (1.5-5.0); GRAN # 5.12 (1.4-6.5); GRAN % 63.7 % (50.0-68.0); HEMOGLOBIN 13.5 g/dL (12.0-16.0); LYMPH % 24.4 % (22.0-35.0); MEAN CELL VOLUME 82.3 fl (80.0-105.0); MEAN CORPUSCULAR HEMOGLOBIN 28.1 pg (25.0-35.0); MEAN CORPUSCULAR HGB CONC 34.1 g/dl (31.0-37.0); MEAN PLATELET VOLUME 9.6 fl (7.0-11.0); MONO # 0.5 (0.1-0.6); RBC 4.81 10^6/uL (3.5-6.1); RED CELL DISTRIBUTION WIDTH 14.2 % (11.5-14.5)
--- NOTE | 2018-07-29 14:03 | ED PDOC ---
Arrival/HPI - General Historian: Patient - History of Present Illness Narrative History of Present Illness (Text): 07/29/18 13:57 33yo morbidly obese female with pmhx of Diabetes, anxiety, hypertension, depression s/p cholecystectomy years ago who present with complaint of epigas tric pain that radiates to her back x years. States pain became worse this morning. Notes that she have seen multiple doctors and GI for this pain. She have had negative colonoscopy and endoscopy with Dr. Watkins. She describes pain as sharp and constant. No relieving/exacerbating factors. She denies chest pain, SOB, diaphoresis, nausea, vomiting, diarrhea, constipation, melena, hematuria, dizziness, urinary symptoms, any other complaint. <Lawrence Kyle A - Last Filed: 07/29/18 18:09> <Tim Reinoso - Last Filed: 07/29/18 18:59> - General Chief Complaint: Chest Pain Past Medical History - Provider Review Nursing Documentation Reviewed: Yes - Infectious Disease Hx of Infectious Diseases: None - Tetanus Immunization Tetanus Immunization: Unknown - Cardiac Hx Cardiac Disorders: Yes Hx Hypertension: Yes - Pulmonary Hx Respiratory Disorders: Yes Hx Asthma: Yes Hx Chronic Obstructive Pulmonary Disease (COPD): Yes Other/Comment: chronic non-productive congh, sarcoidosis. + smoker - Neurological Hx Neurological Disorder: Yes Hx Migraine: Yes - HEENT Hx HEENT Disorder: No - Renal Hx Renal Disorder: No - Endocrine/Metabolic Hx Endocrine Disorders: Yes Hx Diabetes Mellitus Type 2: Yes - Hematological/Oncological Hx Blood Disorders: No - Integumentary Hx Dermatological Disorder: No - Musculoskeletal/Rheumatological Hx Musculoskeletal Disorders: No - Gastrointestinal Hx Gastrointestinal Disorders: Yes Hx Pancreatitis: Yes - Genitourinary/Gynecological Hx Genitourinary Disorders: No - Psychiatric Hx Psychophysiologic Disorder: Yes Hx Anxiety: Yes Hx Depression: Yes Hx Panic Disorder: Yes Hx Substance Use: No - Surgical History Hx Cholecystectomy: Yes Hx Orthopedic Surgery: Yes Other/Comment: multiple R foot sx. back sx - Anesthesia Hx Anesthesia: Yes Hx Anesthesia Reactions: Yes (BURNING SENSATION IN ARM) Hx Malignant Hyperthermia: No - Suicidal Assessment Feels Threatened In Home Enviroment: No <DirgustavoHappiness A - Last Filed: 07/29/18 18:09> Family/Social History - Physician Review Nursing Documentation Reviewed: Yes Family/Social History: Unknown Family HX Smoking Status: Light Smoker < 10 Cigarettes Daily Hx Alcohol Use: Yes Hx Substance Use: No Substance used: CANNABIS Hx Substance Use Treatment: No <Diru,Happiness A - Last Filed: 07/29/18 18:09> Allergies/Home Meds <Diru,Happiness A - Last Filed: 07/29/18 18:09> <TolericoEberTim - Last Filed: 07/29/18 18:59> Allergies/Adverse Reactions: Allergies lisinopril Allergy (Verified 04/22/18 12:16) RASH hydromorphone Adverse Reaction (Verified 04/22/18 12:16) NAUSEA Home Medications: Home Meds Medication Instructions Recorded Confirmed ALPRAZolam [Xanax] 1 tab PO TID PRN 07/29/18 07/29/18 Albuterol HFA [Ventolin HFA 90 2 puff IH PRN PRN 07/29/18 07/29/18 mcg/actuation (8 g)] Alprazolam [Xanax] 1 tab PO BID PRN 07/29/18 07/29/18 Budesonide/Formoterol Fumarate 1 puff IH DAILY 07/29/18 07/29/18 [Symbicort 160-4.5 Mcg Inhaler] Carbinoxamine Maleate [Ryvent] 1 tab PO Q6H 07/29/18 07/29/18 Cyclobenzaprine [Flexeril] 1 tab PO DAILY 07/29/18 07/29/18 DULoxetine [Cymbalta] 1 cap PO DAILY 07/29/18 07/29/18 Dexlansoprazole [Dexilant] 1 cap PO BID 07/29/18 07/29/18 Dicyclomine [Bentyl] 1 tab PO DAILY 07/29/18 07/29/18 Dulaglutide [Trulicity] 1 vial SC Q7D 07/29/18 07/29/18 Fluticasone Nasal [Flonase] 1 spray IH DAILY 07/29/18 07/29/18 Ibuprofen/Famotidine [Duexis 1 tab PO PRN PRN 07/29/18 07/29/18 800-26.6 mg Tablet] Insulin Lispro [humALOG] See Protocol SC ACHS 07/29/18 07/29/18 Iron Carb,Gl/FA/B12/C/Docusate 1 tab PO DAILY 07/29/18 07/29/18 [Ferralet 90 Tablet] Levocetirizine Dihydrochloride 1 tab PO DAILY 07/29/18 07/29/18 [Xyzal] Lidocaine 5% [Lidoderm] 1 patch TOP Q12H 07/29/18 07/29/18 Losartan/Hydrochlorothiazide 1 tab PO DAILY 07/29/18 07/29/18 [Losartan-Hctz 50-12.5 mg Tab] Metoprolol Succinate XL [Toprol XL] 1 tab PO DAILY 07/29/18 07/29/18 Montelukast [Singulair] 1 tab PO DAILY 07/29/18 07/29/18 Ondansetron HCl [Zofran] 1 tab PO PRN PRN 07/29/18 07/29/18 Pregabalin [Lyrica] 1 cap PO DAILY 07/29/18 07/29/18 RX: Albuterol 0.083% [Albuterol 1 vial IH Q6H 07/29/18 07/29/18 0.083% Inhal Lesia (2.5 mg/3 ml) UD] RX: Meclizine [Meclizine*] 1 tab PO TID PRN 07/29/18 07/29/18 RX: Prednisone [Jazmin] 1 tab PO DAILY 07/29/18 07/29/18 RX: oxyCODONE [oxyCODONE Immediate 1 tab PO Q6H PRN 07/29/18 07/29/18 Release Tab] Sucralfate [Carafate] 1 tab PO BID 07/29/18 07/29/18 Sumatriptan Succinate [Imitrex] 1 tab PO Q6H PRN 07/29/18 07/29/18 Zolpidem [Ambien] 1 tab PO DAILY 07/29/18 07/29/18 cycloSPORINE [Restasis] 1 drop BOTHEYES DAILY 07/29/18 07/29/18 Review of Systems - Physician Review All systems were reviewed & negative as marked: Yes - Review of Systems Constitutional: Normal Eyes: Normal ENT: Normal Respiratory: Normal Cardiovascular: Normal Gastrointestinal: Abdominal Pain. absent: Constipation, Diarrhea, Nausea, Vomiting, Hematochezia, Hematemesis Genitourinary Female: Normal Musculoskeletal: Normal Skin: Normal Neurological: Normal Endocrine: Normal Hemo/Lymphatic: Normal Psychiatric: Normal <Diru,Happiness A - Last Filed: 07/29/18 18:09> Physical Exam Vital Signs Reviewed: Yes Vital Signs Temp Pulse Resp BP Pulse Ox 07/29/18 12:19 98.3 F 104 H 20 133/80 97 Temperature: Afebrile Blood Pressure: Normal Pulse: Regular Respiratory Rate: Normal Appearance: Positive for: Well-Appearing, Non-Toxic, Comfortable, Other (Morbidly obese) Pain Distress: None Mental Status: Positive for: Alert and Oriented X 3 Finger Stick Blood Glucose: 405 - Systems Exam Head: Present: Atraumatic, Normocephalic Pupils: Present: PERRL Extroacular Muscles: Present: EOMI Conjunctiva: Present: Normal Mouth: Present: Moist Mucous Membranes Neck: Present: Normal Range of Motion Respiratory/Chest: Present: Clear to Auscultation, Good Air Exchange. No: Respiratory Distress, Accessory Muscle Use Cardiovascular: Present: Regular Rate and Rhythm, Normal S1, S2. No: Murmurs Abdomen: Present: Tenderness (Epigastric), Normal Bowel Sounds, Guarding (Voluntary), Other (soft). No: Distention, Peritoneal Signs, Rebound, McBurney's Point Tender, Rovsing's Sign Present Back: Present: Normal Inspection. No: CVA Tenderness Upper Extremity: Present: Normal Inspection. No: Cyanosis, Edema Lower Extremity: Present: Normal Inspection. No: Edema Neurological: Present: GCS=15, CN II-XII Intact, Speech Normal Skin: Present: Warm, Dry, Normal Color. No: Rashes Psychiatric: Present: Alert, Oriented x 3, Normal Insight, Normal Concentration <Diru,Happiness A - Last Filed: 07/29/18 18:09> Vital Signs Temp Pulse Resp BP Pulse Ox 07/29/18 17:02 98.1 F 98 H 18 146/77 97 07/29/18 16:12 81 18 133/70 96 07/29/18 12:19 98.3 F 104 H 20 133/80 97 <DhirajicoTim - Last Filed: 07/29/18 18:59> Medical Decision Making ED Course and Treatment: 07/29/18 18:09 33yo female in ED for stated history. She was not in any distress. Labs was unremarkable, with exception of the hyperglycemia. Pt noted that she did not take her hypoglycemic today. Her BS improved in ED on re evaluation with hydration. Abdominal/Pelvic cT IMPRESSION: Hepatomegaly with fatty infiltration. Splenomegaly. Cholecystectomy. Diverticulosis without radiographic evidence of acute diverticulitis. Probable involuting left ovarian cyst. PT have been seen here multiple times for same complaint and she had normal Colonoscopy and endoscopy. Her pain improved in ED. All result was DW the pt. She was referred to her GI - Lab Interpretations Lab Results: Lab Results 07/29/18 12:31: Urine Color Yellow, Urine Appearance Clear, Urine pH 6.0, Ur Specific [place] 1.010, Urine Protein Negative, Urine Glucose (UA) >=1000, Urine Ketones 15 H, Urine Blood Negative, Urine Nitrate Negative, Urine Bilirubin Negative, Urine Urobilinogen 0.2, Ur Leukocyte Esterase Negative - RAD Interpretation Radiology Orders: 07/29/18 13:18 ABD & PELVIS IV CONTRAST ONLY [CT] Stat - Medication Orders Current Medication Orders: Sodium Chloride (Sodium Chloride 0.9%) 1,000 mls @ 1,000 mls/hr IV .Q1H STA Stop: 07/29/18 14:17 Last Admin: 07/29/18 13:54 Dose: 1,000 mls/hr eMAR Start Stop Document 07/29/18 13:54 GMD (Rec: 07/29/18 13:54 GMD [facility]-20) Intravenous Solution Start Date 07/29/18 Start Time 13:54 End Date 07/29/18 End time 14:54 Total Infusion Time 60 Discontinued Medications Al Hydrox/Mg Hydrox/Simethicone (Maalox Plus 30 Ml) 30 ml PO STAT STA Stop: 07/29/18 13:19 Last Admin: 07/29/18 13:54 Dose: 30 ml Belladonna/Phenobarbital ( Elixir) 10 ml PO STAT STA Stop: 07/29/18 13:19 Last Admin: 07/29/18 13:55 Dose: 10 ml Famotidine (Pepcid) 20 mg IVP STAT STA Stop: 07/29/18 13:19 Last Admin: 07/29/18 13:55 Dose: 20 mg IVP Administration Document 07/29/18 13:55 GMD (Rec: 07/29/18 13:55 [email or web address] Charges for Administration # of IVP Administrations 1 Lidocaine HCl (Lidocaine 2% Viscous) 10 ml MM STAT STA Stop: 07/29/18 13:19 Last Admin: 07/29/18 13:54 Dose: 10 ml <Diru,Happiness A - Last Filed: 07/29/18 18:09> - Lab Interpretations Lab Results: 07/29/18 13:45 07/29/18 13:45 Lab Results 07/29/18 16:40: POC Glucose (mg/dL) 243 H 07/29/18 13:45: Sodium 132, Potassium 4.7, Chloride 101, Carbon Dioxide 21, Anion Gap 15, BUN 13, Creatinine 0.6 L, Est GFR ( Amer) > 60, Est GFR (Non-Af Amer) > 60, Random Glucose 435 H* D, Calcium 9.0, Magnesium 1.7, Total Bilirubin 0.4, AST 28, ALT 29, Alkaline Phosphatase 149 H, Total Protein 7.2, Albumin 3.8, Globulin 3.4, Albumin/Globulin Ratio 1.1, Lipase 101 07/29/18 13:45: PT 11.1, INR 0.97, APTT 28.0 07/29/18 13:45: WBC 8.0, RBC 4.81, Hgb 13.5, Hct 39.6, MCV 82.3, MCH 28.1, MCHC 34.1, RDW 14.2, Plt Count 296, MPV 9.6, Gran % 63.7, Lymph % (Auto) 24.4, [place] % (Auto) 6.0, Eos % (Auto) 5.4 H, Baso % (Auto) 0.5, Gran # 5.12, Lymph # (Auto) 2.0, [place] # (Auto) 0.5, Eos # (Auto) 0.4, Baso # (Auto) 0.04 07/29/18 13:27: POC Glucose (mg/dL) 405 H* 07/29/18 12:31: Urine Color Yellow, Urine Appearance Clear, Urine pH 6.0, Ur Specific [place] 1.010, Urine Protein Negative, Urine Glucose (UA) >=1000, Urine Ketones 15 H, Urine Blood Negative, Urine Nitrate Negative, Urine Bilirubin Negative, Urine Urobilinogen 0.2, Ur Leukocyte Esterase Negative - RAD Interpretation Radiology Orders: 07/29/18 13:18 ABD & PELVIS IV CONTRAST ONLY [CT] Stat - Medication Orders Current Medication Orders: Discontinued Medications Al Hydrox/Mg Hydrox/Simethicone (Maalox Plus 30 Ml) 30 ml PO STAT STA Stop: 07/29/18 13:19 Last Admin: 07/29/18 13:54 Dose: 30 ml Belladonna/Phenobarbital ( Elixir) 10 ml PO STAT STA Stop: 07/29/18 13:19 Last Admin: 07/29/18 13:55 Dose: 10 ml Famotidine (Pepcid) 20 mg IVP STAT STA Stop: 07/29/18 13:19 Last Admin: 07/29/18 13:55 Dose: 20 mg IVP Administration Document 07/29/18 13:55 GMD (Rec: 07/29/18 13:55 GMD [place] [id number]) Charges for Administration # of IVP Administrations 1 Sodium Chloride (Sodium Chloride 0.9%) 1,000 mls @ 1,000 mls/hr IV .Q1H STA Stop: 07/29/18 14:17 Last Admin: 07/29/18 13:54 Dose: 1,000 mls/hr eMAR Start Stop Document 07/29/18 13:54 GMD (Rec: 07/29/18 13:54 GMD [place] [id number]) Intravenous Solution Start Date 07/29/18 Start Time 13:54 End Date 07/29/18 End time 14:54 Total Infusion Time 60 Lidocaine HCl (Lidocaine 2% Viscous) 10 ml MM STAT STA Stop: 07/29/18 13:19 Last Admin: 07/29/18 13:54 Dose: 10 ml <Tim Reinoso - Last Filed: 07/29/18 18:59> - PA / PHYSIATRIST / Resident Statement / has reviewed & agrees with the documentation as recorded. <Tim Reinoso - Last Filed: 07/29/18 18:59> Disposition/Present on Arrival - Present on Arrival Any Indicators Present on Arrival: No History of DVT/PE: No History of Uncontrolled Diabetes: No Urinary Catheter: No History of Decub. Ulcer: No History Surgical Site Infection Following: None - Disposition Have Diagnosis and Disposition been Completed?: Yes Disposition Time: 16:50 Patient Plan: Discharge <Lawrence Kyle - Last Filed: 07/29/18 18:09> <Tim Reinoso - Last Filed: 07/29/18 18:59> - Disposition Diagnosis: Abdominal pain, Hyperglycemia Disposition: HOME/ ROUTINE Condition: STABLE Discharge Instructions (ExitCare): Acute Abdomen (Belly Pain) Additional Instructions: Follow up with your Doctor Return to ED for any new or worsening symptoms Prescriptions: Sucralfate [Carafate] 1 gm PO BID #10 tablet Referrals: Yamileth NUNEZ,Greg Bloom MD [Family Provider] - Follow up with primary Forms: [employer] ([place] Islander)
[2018-07-29 14:08] LABS: INR 0.97; PROTHROMBIN TIME 11.1 SECONDS (9.4-12.5)
[2018-07-29 14:11] LABS: ALB/GLOB RATIO 1.1 (1.1-1.8); ALBUMIN 3.8 g/dL (3.0-4.8); ALT/SGPT 29 U/L (7-56); AST/SGOT 28 U/L (14-36); BLOOD UREA NITROGEN 13 mg/dL (7-21); GFR NON-AFRICAN AMERICAN > 60; LIPASE 101 U/L (23-300)
[2018-07-29 16:12] VITALS: RESP 18
--- NOTE | 2018-07-29 16:16 | CT ---
Date of service: 07/29/2018 PROCEDURE: CT Abdomen and Pelvis. HISTORY: Epigastric pain COMPARISON: Comparison made with prior CT scan abdomen pelvis 12/21/2017.. TECHNIQUE: Contiguous axial images of the abdomen and pelvis performed following intravenous injection of approximately 140 cc Omnipaque 350 contrast material. Additional 2D sagittal and coronal reformats generated. Radiation dose: Total exam DLP = 1275.28 mGy-cm. This CT exam was performed using one or more of the following dose reduction techniques: Automated exposure control, adjustment of the mA and/or kV according to patient size, and/or use of iterative reconstruction technique. FINDINGS: LOWER THORAX: Lung bases clear. No infiltrate effusion or basilar pneumothorax. Heart size within range of normal. No significant pericardial effusion. Tiny hiatal hernia. LIVER: Liver is mildly enlarged measuring over 20 cm in CC dimension. Moderate fatty hepatic infiltration. No obvious hepatic mass collection or calcification. Portal and splenic veins are opacified. GALLBLADDER AND BILE DUCTS: Cholecystectomy. PANCREAS: Pancreas slightly atrophic and fatty replaced. No pancreatic mass collection or calcification.. SPLEEN: Spleen is mildly enlarged measuring nearly 15 cm in AP dimension. No obvious splenic mass collection or calcification.. ADRENALS: No adrenal lesions.. KIDNEYS AND URETERS: Kidneys demonstrate symmetric nephrograms. No evidence of nephrolithiasis or hydronephrosis.. BLADDER: Urinary bladder physiologically distended. No evidence of intraluminal urinary bladder calculi. REPRODUCTIVE: Uterus unremarkable. Probable involuting or hemorrhagic left ovarian cyst measuring approximately 2 cm. APPENDIX: No evidence of acute appendicitis. BOWEL: Evaluation of the bowel is limited due to the lack of oral contrast material. The stomach is incompletely distended. Visualized loops of small bowel exhibit normal contour and caliber. No evidence of acute mechanical small bowel obstruction. Stool and air seen throughout the large bowel. Scattered colonic diverticula, bulk of which again seen along the sigmoid colon. No definitive radiographic evidence of acute diverticulitis. PERITONEUM: Unremarkable. No fluid collection. No free air. There is a small fat containing umbilical hernia. LYMPH NODES: Unremarkable. No enlarged lymph nodes. VASCULATURE: Unremarkable. No aortic aneurysm. Minimal aortic atherosclerotic calcification or mural plaque present distal thoracic aorta. BONES: Minor multilevel degenerative spondylosis of the lower thoracic and lumbar spine OTHER FINDINGS: None. IMPRESSION: Hepatomegaly with fatty infiltration. Splenomegaly. Cholecystectomy. Diverticulosis without radiographic evidence of acute diverticulitis. Probable involuting left ovarian cyst.
[2018-07-29] MEDS ORDERED: Insulin Regular 1 UNITS/0.01 ML ML IVP STA (16:23)
[2018-07-29 17:02] VITALS: BP 146/77; PULSE 98; TEMP 98.1; O2SAT 97
--- NOTE | 2018-07-29 17:57 | CARD ---
APPROVED REPORT Date of service: 07/29/2018 EKG Measurement Heart [id number] [id number] <Conclusion> Normal sinus rhythm Normal ECG
== END 2018-07-29 17:07 | disposition home or self-care (01) ==
LOC: ED 12:19
DX: E11.65 Type 2 diabetes mellitus with hyperglycemia (principal); R10.13 Epigastric pain; E66.01 Morbid (severe) obesity due to excess calories; F17.210 Nicotine dependence, cigarettes, uncomplicated; I10 Essential (primary) hypertension
CPT/HCPCS: 74177; 80053; 81003; 82948; 83690; 83735; 85025; 85610; 85730; 93005; 96361; 96374; 99285; J7030; Q9967

== ENCOUNTER 2018-08-12 03:59 | Emergency (ER) | payer OTHER ==
[2018-08-12 04:04] VITALS: BMI 41.3
[2018-08-12] MEDS ORDERED: Albuterol-Ipratrop 3 mg / 0.5 (3 ml) UD IH STA (04:50)
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
[2018-08-12 05:58] VITALS: BP 117/76; PULSE 88; RESP 18; TEMP 98.5; O2SAT 100
--- NOTE | 2018-08-12 14:43 | CARD ---
APPROVED REPORT Date of service: 08/12/2018 EKG Measurement Heart [id number] 156P22 [id number] <Conclusion> Normal sinus rhythm Normal ECG
== END 2018-08-12 05:45 | disposition home or self-care (01) ==
LOC: ED 03:59
DX: J45.909 Unspecified asthma, uncomplicated (principal); J06.9 Acute upper respiratory infection, unspecified; I10 Essential (primary) hypertension; E78.5 Hyperlipidemia, unspecified; D86.9 Sarcoidosis, unspecified; E11.9 Type 2 diabetes mellitus without complications; Z87.891 Personal history of nicotine dependence